=== PATIENT | male | born 1975 | race American Indian/Alaskan Native ===

== ENCOUNTER 2021-04-14 21:03 | Emergency (ER) | payer MEDICAID ==
--- NOTE | 2021-04-15 00:59 | Emergency Department Report ---
ED Psych HPI - General Chief Complaint: Psych Stated Complaint: LEFT HIP PAIN/SUICIDAL/MH EVAL Time Seen by Provider: 04/15/21 00:56 Source: patient Mode of arrival: Ambulatory Limitations: No Limitations - History of Present Illness Initial Comments: Patient is a 45-year-old male who presents emergency room with complaints of suicidal ideations. Patient states he will be going off for 4 days. Patient states his symptoms are worsening. Patient complains of depression. Patient complains of audio and visual hallucinations. Patient states he is off his psychiatry medications. Patient denies alcohol or drug use. Patient states he smokes. Patient denies homicidal ideations. Patient denies recent travel. Patient denies recent international travel. Patient denies exposure to the novel coronavirus. Patient denies sick contacts. Patient denies fever and chills. Patient denies cough. Patient denies diarrhea. Patient denies coming in contact with anybody with symptoms of the novel coronavirus. MD Complaint: suicidal ideation, feels depressed -: Sudden Associated Psychiatric Symptoms: depression, suicidal ideation, racing thoughts, auditory hallucinations, visual hallucinations History of same: Yes Quality: constant Improves With: none Worsens With: none Context: not taking psychiatric, significant life stressor Associated Symptoms: denies: confusion, headache, shortness of breath, nausea, vomiting, syncope, insomnia If Self Harm: admits thoughts of, has plan - Related Data Home Medications Medication Instructions Recorded Confirmed Last Taken Nicotine [Habitrol] 21 mg TD DAILY 04/15/21 04/15/21 04/15/21 11:00 Sertraline [Zoloft] 25 mg PO QDAY 04/15/21 04/15/21 Unknown risperiDONE [RisperDAL] 0.5 mg PO BID 04/15/21 04/15/21 04/15/21 16:00 OLANZapine [Zyprexa] 15 mg PO HS 04/16/21 04/16/21 Unknown amLODIPine 5 mg PO DAILY 04/16/21 04/16/21 Unknown Previous Rx's Medication Instructions Recorded Last Taken Type Gabapentin 300 mg PO Q8HR 30 Days #60 capsule 04/20/21 Unknown Rx Ibuprofen [Motrin 800 MG tab] 800 mg PO Q8H PRN tablet 04/20/21 Unknown Rx OLANzapine [ZyPREXA] 15 mg PO QHS 30 Days #30 tablet 04/20/21 Unknown Rx Sertraline [Zoloft] 100 mg PO QDAY 30 Days #30 tablet 04/20/21 Unknown Rx amLODIPine 5 mg PO DAILY tablet 04/20/21 Unknown Rx hydrOXYzine PAMOATE [Vistaril] 25 mg PO Q6H PRN 30 Days #60 04/20/21 Unknown Rx capsule Allergies Allergy/AdvReac Type Severity Reaction Status Date / Time No Known Allergies Allergy Verified 04/15/21 20:33 ED Review of Systems ROS: Stated complaint: LEFT HIP PAIN/SUICIDAL/MH EVAL Other details as noted in HPI Constitutional: denies: chills, fever Eyes: denies: eye pain, eye discharge, vision change ENT: denies: ear pain, throat pain Respiratory: denies: cough, shortness of breath, wheezing Cardiovascular: denies: chest pain, palpitations Endocrine: no symptoms reported Gastrointestinal: denies: abdominal pain, nausea, diarrhea Genitourinary: denies: urgency, dysuria Musculoskeletal: denies: back pain, joint swelling, arthralgia Skin: denies: rash, lesions Neurological: denies: headache, weakness, paresthesias Psychiatric: as per HPI, depression, auditory hallucinations, visual hallucinations, suicidal thoughts. denies: anxiety Hematological/Lymphatic: denies: easy bleeding, easy bruising ED Past Medical Hx - Past Medical History Previous Medical History?: Yes Hx Psychiatric Treatment: Yes - Surgical History Past Surgical History?: No - Family History Family history: no significant - Social History Smoking Status: Current Every Day Smoker Substance Use Type: None - Medications Home Medications: Home Medications Medication Instructions Recorded Confirmed Last Taken Type Nicotine [Habitrol] 21 mg TD DAILY 04/15/21 04/15/21 04/15/21 11:00 History Sertraline [Zoloft] 25 mg PO QDAY 04/15/21 04/15/21 Unknown History risperiDONE [RisperDAL] 0.5 mg PO BID 04/15/21 04/15/21 04/15/21 16:00 History OLANZapine [Zyprexa] 15 mg PO HS 04/16/21 04/16/21 Unknown History amLODIPine 5 mg PO DAILY 04/16/21 04/16/21 Unknown History Gabapentin 300 mg PO Q8HR 30 Days #60 capsule 04/20/21 Unknown Rx Ibuprofen [Motrin 800 MG tab] 800 mg PO Q8H PRN tablet 04/20/21 Unknown Rx OLANzapine [ZyPREXA] 15 mg PO QHS 30 Days #30 tablet 04/20/21 Unknown Rx Sertraline [Zoloft] 100 mg PO QDAY 30 Days #30 tablet 04/20/21 Unknown Rx amLODIPine 5 mg PO DAILY tablet 04/20/21 Unknown Rx hydrOXYzine PAMOATE [Vistaril] 25 mg PO Q6H PRN 30 Days #60 04/20/21 Unknown Rx capsule ED Physical Exam - General Limitations: No Limitations General appearance: alert, in no apparent distress - Head Head exam: Present: atraumatic, normocephalic - Eye Eye exam: Present: normal appearance - ENT ENT exam: Present: mucous membranes moist - Neck Neck exam: Present: normal inspection - Respiratory Respiratory exam: Present: normal lung sounds bilaterally. Absent: respiratory distress - Cardiovascular Cardiovascular Exam: Present: regular rate, normal rhythm. Absent: systolic mur mur, diastolic murmur, rubs, gallop - GI/Abdominal GI/Abdominal exam: Present: soft, normal bowel sounds - Rectal Rectal exam: Present: deferred - Extremities Exam Extremities exam: Present: normal inspection - Back Exam Back exam: Present: normal inspection - Neurological Exam Neurological exam: Present: alert, oriented X3 - Psychiatric Psychiatric exam: Present: depressed, flat affect, suicidal ideation - Skin Skin exam: Present: warm, dry, intact, normal color. Absent: rash ED Course Vital Signs 04/15/21 04/15/21 04/15/21 00:17 08:08 08:47 Temperature 98.7 F 97.6 F Pulse Rate 80 82 Respiratory 20 20 Rate Blood Pressure 151/103 Blood Pressure 110/80 [Left] O2 Sat by Pulse 97 98 98 Oximetry 04/15/21 19:33 Temperature 98.1 F Pulse Rate 95 H Respiratory 18 Rate Blood Pressure Blood Pressure 119/75 [Left] O2 Sat by Pulse 100 Oximetry - Reevaluation(s) Reevaluation #1: Patient placed on a ER hold. 04/15/21 00:57 Reevaluation #2: Patient is medically cleared. Patient remained in the ER as an ER hold. Patient's final disposition will come from our psychiatry team. 04/15/21 05:45 ED Medical Decision Making - Lab Data Result diagrams: 04/15/21 01:06 04/15/21 01:06 - Medical Decision Making Patient is a 45-year-old male who presents emergency room for suicidal ideation, depression and hallucinations. Patient is noncompliant with the psychiatry medications. Patient having suicidal ideation with a plan. Patient placed on a ER hold after initial evaluation. Patient had labs done. Patient's labs are essentially unremarkable. Patient is medically cleared. Patient's final disposition will come from our psychiatry team. Patient remained in the ER as an ER hold until the patient is cleared by our psychiatry team. - Differential Diagnosis Suicidal ideation, depression, hallucinations, noncompliance with medicatio Critical care attestation.: If time is entered above; I have spent that time in minutes in the direct care of this critically ill patient, excluding procedure time. ED Disposition Clinical Impression: Suicidal ideations, Hallucinations, Noncompliance Disposition: 30 STILL A PATIENT Is pt being admited?: No Does the pt Need Aspirin: No Condition: Stable Referrals: PRIMARY CARE, [Primary Care Provider] - 3-5 Days Time of Disposition: 05:47
[2021-04-15 01:42] LABS: Basophils % (Auto) 0.6 % (0.0-1.8); Eosinophils # (Auto) 0.1 K/mm3 (0.0-0.4); Eosinophils % (Auto) 1.9 % (0.0-4.3); Hematocrit 45.9 % (35.5-45.6); Hemoglobin 15.6 gm/dl (11.8-15.2); Lymphocytes # (Auto) 1.9 K/mm3 (1.2-5.4); Lymphocytes % (Auto) 26.1 % (13.4-35.0); Mean Corpuscular HGB Conc 34 % (32-34); Mean Corpuscular Volume 89 fl (84-94); Monocytes # (Auto) 0.7 K/mm3 (0.0-0.8); Monocytes % (Auto) 9.6 % (0.0-7.3); Platelet Count 244 K/mm3 (140-440); Red Blood Count 5.19 M/mm3 (3.65-5.03); Red Cell Distribution Width 14.7 % (13.2-15.2)
[2021-04-15 01:46] LABS: Alanine Aminotransferase 28 units/L (7-56); Albumin 4.5 g/dL (3.9-5); BUN/Creatinine Ratio 11; Blood Urea Nitrogen 9 mg/dL (9-20); Calcium 9.6 mg/dL (8.4-10.2); Hemolysis Index 6
[2021-04-15 05:17] LABS: Amphetamine Screen,Urine PRESUMPTIVE NEGATIVE; Benzodiazepines Screen,Urine PRESUMPTIVE NEGATIVE; Cannabinoid Screen,Urine PRESUMPTIVE NEGATIVE; Cocaine Screen,Urine PRESUMPTIVE NEGATIVE; Methadone Screen,Urine PRESUMPTIVE NEGATIVE; Opiate Screen,Urine PRESUMPTIVE NEGATIVE
[2021-04-15 05:24] LABS: Bilirubin,Urine NEG (Negative); Blood,Urine NEG (Negative); Color,Urine Amber (Yellow); Mucus,Urine 2+ /HPF
--- NOTE | 2021-04-15 09:13 | Consultation ---
History of Present Illness - Reason for Consult Consult date: 04/15/21 Reason for consult: Suicidal thoughts - History of Present Psychiatric Illness Per ER Note: Patient is a 45-year-old male who presents emergency room with complaints of suicidal ideations. Patient states he will be going off for 4 days. Patient states his symptoms are worsening. Patient complains of depression. Patient complains of audio and visual hallucinations. Patient states he is off his psychiatry medications. Patient denies alcohol or drug use. Patient states he smokes. Patient denies homicidal ideation. David Dixon is a 45y/o male who was seen today. He says he is "not good." The patient says he's been suicidal for "about 5 days." He says he has a plan to run in front of traffic. The patient also states he "sees black and white dots." He says he hears voices telling him to "kill himself." The patient says he has a history of schizophrenia and bipolar. He says he takes risperidone and zoloft. Th epatient stats he has been compliant with his meds. PAST PSYCHIATRIC HISTORY Diagnoses: Schizophrenia, bipolar Suicide attempts or Self-harm behavior: None reported Prior psychiatric hospitalizations: yes Substance Abuse history: Nicotine Previous psychiatric medications tried: risperidone and zoloft Outpatient treatment: Yes PAST MEDICAL HISTORY: None reported Family Psychiatric History: Mother " unknown" SOCIAL HISTORY Marital Status: Single Living Arrangements: residential Employment Status: Unemployed Access to guns/weapons: None reported Education: History of Abuse: None reported Legal History: None reported REVIEW OF SYSTEMS Constitutional: Negative for weight loss ENT: Negative for stridor Respiratory: Negative for cough or hemoptysis All other systems reviewed and are negative MENTAL STATUS EXAMINATION General Appearance and Behavior: Age appropriate, good hygiene, wearing appropriate clothes, poor eye contact, calm and cooperative Cooperation: cooperative Mood: Depressed Affect and affective range: congruent with mood Thought Process: Goal directed Thought Content: Suicidal, hallucinations Speech: normal tone and pace Suicidal Ideation: Yes Homicidal Ideation: Denies Hallucinations: Auditory Delusions: Denies Impulse Control: Impaired Insight and Judgment: Limited insight and poor judgment, Memory: Normal Attention: Normal Orientation: Alert, oriented Assessment Schizophrenia Treatment 1013 Zoloft 25mg po daily Risperidone 0.5mg po BID Nicotine patch 21mg daily Sitter: Per primary Medical: per primary Disposition: Recommend acute psychiatric inpatient treatment Case staffed with Dr. Renteria Mental Status Exam - Vital signs Last Vital Signs Temp 97.6 F 04/15/21 08:08 Pulse 82 04/15/21 08:08 Resp 20 04/15/21 08:08 BP 110/80 04/15/21 08:08 Pulse Ox 98 04/15/21 08:47 Results Result Diagrams: 04/15/21 01:06 04/15/21 01:06 Abnormal lab results 04/15/21 04/15/21 04/15/21 Range/Units 01:06 01:06 01:06 RBC 5.19 H (3.65-5.03) M/mm3 Hgb 15.6 H (11.8-15.2) gm/dl Hct 45.9 H (35.5-45.6) % [place] % (Auto) 9.6 H (0.0-7.3) % Glucose 109 H (75-100) mg/dL Ur Specific [place] (1.003-1.030) Salicylates < 0.3 L (2.8-20.0) mg/dL Acetaminophen (10.0-30.0) ug/mL 04/15/21 04/15/21 Range/Units 01:06 04:05 RBC (3.65-5.03) M/mm3 Hgb (11.8-15.2) gm/dl Hct (35.5-45.6) % [place] % (Auto) (0.0-7.3) % Glucose (75-100) mg/dL Ur Specific [place] 1.033 H (1.003-1.030) Salicylates (2.8-20.0) mg/dL Acetaminophen 5.0 L (10.0-30.0) ug/mL All other labs normal.
--- NOTE | 2021-04-15 10:34 | Event Note ---
Date: 04/15/21 S: No events reported overnight O: Vital Signs - 24 hr 04/15/21 04/15/21 04/15/21 00:17 08:08 08:47 Temperature 98.7 F 97.6 F Pulse Rate 80 82 Respiratory 20 20 Rate Blood Pressure 151/103 Blood Pressure 110/80 [Left] O2 Sat by Pulse 97 98 98 Oximetry A: Schizophrenia/1013 P: Awaiting inpatient psych placement
[2021-04-15] MEDS ORDERED: NICOTINE 21 MG/24 HR PATCH TD SCH (15:00)
[2021-04-15] MEDS ORDERED: SERTRALINE 25 MG TAB PO SCH (15:00)
[2021-04-15] MEDS ORDERED: risperiDONE 0.25 MG TAB PO SCH (15:00)
[2021-04-15] MEDS ORDERED: IBUPROFEN 800 MG TAB PO ONE (16:43)
[2021-04-15 19:34] VITALS: BP 119/75
== END 2021-04-15 19:51 | disposition still patient (30) ==
LOC: ED 21:03 → EEVIPCON 21:03 → ED 04-15 19:51
DX: R45.851 Suicidal ideations (principal); R44.3 Hallucinations, unspecified; Z91.19 Patient's noncompliance with other medical treatment and regimen; Z20.822 Contact with and (suspected) exposure to COVID-19; F17.200 Nicotine dependence, unspecified, uncomplicated
CPT/HCPCS: 36415; 80053; 80307; 81001; 85025; 99284; U0003; 80320; G0480

== ENCOUNTER 2021-04-15 14:53 | Inpatient (IN) | payer MEDICAID ==
[2021-04-16] MEDS: traZODone 50 MG TAB PO SCH ×2 (02:07→21:29)
--- NOTE | 2021-04-16 09:06 | History and Physical Report ---
GP History & Physical - History of Present Illness Date of admission: 04/15/21 Date of Examination: 04/16/21 Reason for Admission: Danger to self Chief Complaint: suicidal ideation/ AVH History of Present Illness: David Guzmán is a a 45 year old male with a history of Depression, Anxiety, Bipolar, Schizophrenia, suicidal attempts x 20 and multiple psychiatric inpatient admissions who was admitted on 1012 for suicidal ideation with a plan to run into traffic and also auditory and visual hallucinations. In my interview with the patient, He reports moving from [place], [place] about a month and half ago and he is currently staying in a transitional home. The patient states his medications ran out and has not seen a psychiatrist since his move; last took medications about 6 days ago. The patient reports having suicidal thoughts with no plan and has auditory and visual hallucinations " voices telling me to kill myself and I see dots of white and black." The patient reports trying Risperidone, Gapapentin and Klonopin, and states current medications as Zoloft 25mg daily, Buspar (unknown dosage) and Vistaril (unknown dosage). The patient states he has family in [place] and they are supportive. PAST PSYCHIATRIC HISTORY: Diagnoses: Depression, Anxiety, Bipolar, Schizophrenia Suicide attempts or Self-harm behavior: X20 Prior psychiatric hospitalizations: Multiple Substance Abuse history: Denies Previous psychiatric medications tried: Multiple( unable to state) Outpatient treatment: yes PAST MEDICAL HISTORY: None reported or document Family Psychiatric History: None reported or documented SOCIAL HISTORY Marital Status: Single Living Arrangements: Transitional home Employment Status: Unemployed Access to guns/weapons: denies Education: 12th grade History of Abuse: denies Legal History: denies REVIEW OF SYSTEMS Constitutional: Negative for weight loss ENT: Negative for stridor Respiratory: Negative for cough or hemoptysis All other systems reviewed and are negative MENTAL STATUS EXAMINATION General Appearance and Behavior: Age appropriate, good hygiene, wearing appropriate clothes, calm and cooperative polite with questioning. Cooperation: engaged Psychomotor Behavior: Psychomotor normal Mood: depressed Affect and affective range: congruent with stated mood Thought Process: goal directed Thought Content: Suicidal Speech: Normal volume, Regular rate and rhythm, Suicidal Ideation: Yes Homicidal Ideation: Denies Hallucinations: Auditory and visual Delusions: None elicited Impulse Control: Questionable Insight and Judgment: Limited Memory: Limited Attention: attentive Orientation: a/o Assessment and Plan (1)Schizophrenia Treatment Plan Patient admitted for inpatient psychiatric evaluation, medication adjustment and close monitoring The patient's behavior, mood, sleep and appetite will be closely monitored. Patient enrolled in individual and group therapeutic sessions and encouraged to attend. Patient provided with a safe and structured environment. Patient's physical health needs will be addressed by the Hospitalist. Hospitalist Consulted Labs including CBC, CMP, Lipid profile and Hemoglobin A1C levels ordered for baseline reference Social Assessment will be completed and the Doctor Of Optometry will work with patient and family to ensure a suitable and safe disposition Medication adjustment will be made as clinically indicated Continue home medications Start Vistaril 25mg po every 6 hours as needed for anxiety. The patient agreed to carlos Klonopin and start Vistaril 25 mg po every 6 hours as needed for anxiety Usual Wellness Muslim/Preservation: - Start Trazodone 50 mg po QHS & 50 mg po QHS PRN between 10 PM & 2 AM for insomnia - Start Melatonin 5 mg po QHS to promote circadian rhythm The patient agreed on the treatment plan, understood the risk, benefit, alternative treatment, potential consequence of no treatment, and gave informed consent. Estimated days: 6 Post hospital care: primary care provider, psychiatric provider Case staffed with Dr. Renteria Medications and Allergies Medications and Allergies Allergies Allergy/AdvReac Type Severity Reaction Status Date / Time No Known Allergies Allergy Unverified 04/14/21 15:09 Legal Status: Voluntary Reaction to Hospitalization: Accepting Medications and Allergies Allergies Allergy/AdvReac Type Severity Reaction Status Date / Time No Known Allergies Allergy Verified 04/15/21 20:33 Home Medications Medication Instructions Recorded Confirmed Last Taken Type Nicotine [Habitrol] 21 mg TD DAILY 04/15/21 04/15/21 04/15/21 11:00 History Sertraline [Zoloft] 25 mg PO QDAY 04/15/21 04/15/21 Unknown History risperiDONE [RisperDAL] 0.5 mg PO BID 04/15/21 04/15/21 04/15/21 16:00 History OLANZapine [Zyprexa] 15 mg PO HS 04/16/21 04/16/21 Unknown History amLODIPine [Norvasc] 5 mg PO DAILY 04/16/21 04/16/21 Unknown History Active Meds: Active Medications Trazodone HCl (Trazodone 50 Mg Tab) 50 mg PO QHS KAJAL Last Admin: 04/16/21 02:07 Dose: 50 mg Documented by: Results - Results Labs/Vitals: Last Vital Signs Temp 98.5 F 04/15/21 21:00 Pulse 92 H 04/15/21 21:00 Resp 16 04/15/21 21:00 BP 130/83 04/15/21 21:00 Pulse Ox 97 04/15/21 21:00 Physical Examination - Constitutional Vitals: Vital Signs Temp Pulse Resp BP Pulse Ox 98.5 F 92 H 16 130/83 97 04/15/21 21:00 04/15/21 21:00 04/15/21 21:00 04/15/21 21:00 04/15/21 21:00 Temperature -Last 24 Hours Temperature 98.5 F Mental Status Exam - Vital signs Last Vital Signs Temp 98.5 F 04/15/21 21:00 Pulse 92 H 04/15/21 21:00 Resp 16 04/15/21 21:00 BP 130/83 04/15/21 21:00 Pulse Ox 97 04/15/21 21:00 Physician Certification - Certification Statement Physician Certification Statement: This is an acknowledgement statement that DAVID GUZMÁN is a 45 year old M who requires inpatient psychiatric admission for treatment which could reasonably be expected to improve the patient's condition for Estimated period of time patient will need to remain in the hospital: [ ] Plan for post-hospital care: [ ]
[2021-04-16] MEDS: SERTRALINE 25 MG TAB PO SCH (10:03)
[2021-04-16 10:24] LABS: Basophils % (Auto) 0.6 % (0.0-1.8); Eosinophils # (Auto) 0.1 K/mm3 (0.0-0.4); Eosinophils % (Auto) 1.5 % (0.0-4.3); Hematocrit 43.5 % (35.5-45.6); Hemoglobin 14.9 gm/dl (11.8-15.2); Lymphocytes # (Auto) 1.6 K/mm3 (1.2-5.4); Lymphocytes % (Auto) 25.1 % (13.4-35.0); Mean Corpuscular HGB Conc 34 % (32-34); Mean Corpuscular Volume 88 fl (84-94); Monocytes # (Auto) 0.4 K/mm3 (0.0-0.8); Monocytes % (Auto) 6.8 % (0.0-7.3); Red Blood Count 4.97 M/mm3 (3.65-5.03); Red Cell Distribution Width 14.5 % (13.2-15.2)
[2021-04-16] MEDS: hydrOXYzine PAMOATE 25 MG CAP PO PRN (10:25)
[2021-04-16 10:50] LABS: Alanine Aminotransferase 19 units/L (7-56); BUN/Creatinine Ratio 18; Blood Urea Nitrogen 14 mg/dL (9-20); Calcium 9.6 mg/dL (8.4-10.2); HDL Cholesterol 48 mg/dL (40-59); Hemolysis Index 20; LDL Cholesterol,Direct 118 mg/dL (50-130); Platelet Count 241 K/mm3 (140-440)
--- NOTE | 2021-04-16 14:13 | Consultation ---
History of Present Illness - History of Present Illness Patient is a 45-year-old male who presents emergency room with complaints of suicidal ideations. Patient states he will be going off for 4 days. Patient states his symptoms are worsening. Patient complains of depression. Patient complains of audio and visual hallucinations. Patient states he is off his psychiatry medications. Patient denies alcohol or drug use. Patient states he smokes. Patient denies homicidal ideations. Patient denies recent travel. Patient denies recent international travel. Patient denies exposure to the novel coronavirus. Patient denies sick contacts. Patient denies fever and chills. Patient denies cough. Patient denies diarrhea. Patient denies coming in contact with anybody with symptoms of the novel coronavirus. MD Complaint: suicidal ideation, feels depressed -: Sudden Associated Psychiatric Symptoms: depression, suicidal ideation, racing thoughts, auditory hallucinations, visual hallucinations History of same: Yes Quality: constant Improves With: none Worsens With: none Context: not taking psychiatric, significant life stressor Associated Symptoms: denies: confusion, headache, shortness of breath, nausea, vomiting, syncope, insomnia If Self Harm: admits thoughts of, has plan ED Review of Systems ROS: Stated complaint: LEFT HIP PAIN/SUICIDAL/MH EVAL Other details as noted in HPI Constitutional: denies: chills, fever Eyes: denies: eye pain, eye discharge, vision change ENT: denies: ear pain, throat pain Respiratory: denies: cough, shortness of breath, wheezing Cardiovascular: denies: chest pain, palpitations Endocrine: no symptoms reported Gastrointestinal: denies: abdominal pain, nausea, diarrhea Genitourinary: denies: urgency, dysuria Musculoskeletal: denies: back pain, joint swelling, arthralgia Skin: denies: rash, lesions Neurological: denies: headache, weakness, paresthesias Psychiatric: as per HPI, depression, auditory hallucinations, visual hallucinations, suicidal thoughts. denies: anxiety Hematological/Lymphatic: denies: easy bleeding, easy bruising ED Past Medical Hx - Past Medical History Previous Medical History?: Yes Hx Psychiatric Treatment: Yes - Surgical History Past Surgical History?: No - Family History Family history: no significant - Social History Smoking Status: Current Every Day Smoker Substance Use Type: None ED Physical Exam Medications and Allergies Allergies Allergy/AdvReac Type Severity Reaction Status Date / Time No Known Allergies Allergy Verified 04/15/21 20:33 Home Medications Medication Instructions Recorded Confirmed Last Taken Type Nicotine [Habitrol] 21 mg TD DAILY 04/15/21 04/15/21 04/15/21 11:00 History Sertraline [Zoloft] 25 mg PO QDAY 04/15/21 04/15/21 Unknown History risperiDONE [RisperDAL] 0.5 mg PO BID 04/15/21 04/15/21 04/15/21 16:00 History OLANZapine [Zyprexa] 15 mg PO HS 04/16/21 04/16/21 Unknown History amLODIPine [Norvasc] 5 mg PO DAILY 04/16/21 04/16/21 Unknown History Active Meds: Active Medications Hydroxyzine Pamoate (Hydroxyzine Pamoate 25 Mg Cap) 25 mg PO Q6H PRN PRN Reason: Anxiety Last Admin: 04/16/21 10:25 Dose: 25 mg Documented by: Olanzapine (Olanzapine 7.5 Mg Tab) 15 mg PO QHS [facility] Sertraline HCl (Sertraline 25 Mg Tab) 25 mg PO QDAY [facility] Last Admin: 04/16/21 10:03 Dose: 25 mg Documented by: Trazodone HCl (Trazodone 50 Mg Tab) 50 mg PO QHS [facility] Last Admin: 04/16/21 02:07 Dose: 50 mg Documented by: Exam - Constitutional Vitals: Temp Pulse Resp BP Pulse Ox 98.3 F 89 16 97/64 97 04/16/21 08:00 04/16/21 08:00 04/16/21 08:00 04/16/21 08:00 04/15/21 21:00 Results - Labs CBC & Chem 7: 04/16/21 10:06 04/16/21 10:06
[2021-04-16] MEDS: IBUPROFEN 800 MG TAB PO PRN (19:13)
[2021-04-16] MEDS: GABAPENTIN 300 MG CAP PO SCH (21:28)
[2021-04-16] MEDS ORDERED: NON-FORMULARY EACH (Olanzapine [Zyprexa] 15 MG Tablet) PO SCH (22:00)
[2021-04-17] MEDS: GABAPENTIN 300 MG CAP PO SCH ×3 (05:32→21:46)
--- NOTE | 2021-04-17 08:48 | Progress Note ---
Subjective Date of service: 04/17/21 Subjective Comment: 04/17/2021: The patient was seen eating breakfast, he reports feeling better. He reports sleep and appetite as good. The patient denies any current suicidal/homicidal ideation and denies hallucinations. per nurse, the patient had a quiet night. No changes made today. REVIEW OF SYSTEMS Constitutional: Negative for weight loss ENT: Negative for stridor Respiratory: Negative for cough or hemoptysis All other systems reviewed and are negative MENTAL STATUS EXAMINATION General Appearance and Behavior: Age appropriate, good hygiene, wearing appropriate clothes, calm and cooperative polite with questioning. Cooperation: engaged Psychomotor Behavior: Psychomotor normal Mood: depressed Affect and affective range: congruent with stated mood Thought Process: goal directed Thought Content: Not Suicidal Speech: Normal volume, Regular rate and rhythm, Suicidal Ideation: Denies Homicidal Ideation: Denies Hallucinations: Auditory and visual Delusions: None elicited Impulse Control: Questionable Insight and Judgment: Limited Memory: Limited Attention: attentive Orientation: a/o Assessment and Plan (1)Schizophrenia Treatment Plan Patient admitted for inpatient psychiatric evaluation, medication adjustment and close monitoring The patient's behavior, mood, sleep and appetite will be closely monitored. Patient enrolled in individual and group therapeutic sessions and encouraged to attend. Patient provided with a safe and structured environment. Patient's physical health needs will be addressed by the Hospitalist. Hospitalist Consulted Labs including CBC, CMP, Lipid profile and Hemoglobin A1C levels ordered for baseline reference Social Assessment will be completed and the Coating Manager will work with patient and family to ensure a suitable and safe disposition Medication adjustment will be made as clinically indicated Continue home medications No changes made today Start Vistaril 25mg po every 6 hours as needed for anxiety. The patient agreed to carlos Klonopin and start Vistaril 25 mg po every 6 hours as needed for anxiety Usual Wellness Yazidi/Preservation: - Start Trazodone 50 mg po QHS & 50 mg po QHS PRN between 10 PM & 2 AM for insomnia - Start Melatonin 5 mg po QHS to promote circadian rhythm The patient agreed on the treatment plan, understood the risk, benefit, alternative treatment, potential consequence of no treatment, and gave informed consent. Estimated days: 5 Post hospital care: primary care provider, psychiatric provider Case staffed with Dr. Renteria Medications and Allergies Medications and Allergies Allergies Allergy/AdvReac Type Severity Reaction Status Date / Time No Known Allergies Allergy Verified 04/15/21 20:33 Home Medications Medication Instructions Recorded Confirmed Last Taken Type Nicotine [Habitrol] 21 mg TD DAILY 04/15/21 04/15/21 04/15/21 11:00 History Sertraline [Zoloft] 25 mg PO QDAY 04/15/21 04/15/21 Unknown History risperiDONE [RisperDAL] 0.5 mg PO BID 04/15/21 04/15/21 04/15/21 16:00 History OLANZapine [Zyprexa] 15 mg PO HS 04/16/21 04/16/21 Unknown History amLODIPine [Norvasc] 5 mg PO DAILY 04/16/21 04/16/21 Unknown History Active Meds: Active Medications Amlodipine Besylate (Amlodipine 5 Mg Tab) 5 mg PO DAILY [facility] Gabapentin (Gabapentin 300 Mg Cap) 300 mg PO Q8HR [facility] Last Admin: 04/17/21 05:32 Dose: 300 mg Documented by: Hydroxyzine Pamoate (Hydroxyzine Pamoate 25 Mg Cap) 25 mg PO Q6H PRN PRN Reason: Anxiety Last Admin: 04/16/21 10:25 Dose: 25 mg Documented by: Ibuprofen (Ibuprofen 800 Mg Tab) 800 mg PO Q8H PRN PRN Reason: Pain, Mild (1-3) Last Admin: 04/16/21 19:13 Dose: 800 mg Documented by: Nicotine (Nicotine 21 Mg/24 Hr Patch) 21 mg TD DAILY [facility] Olanzapine (Olanzapine 5 Mg Tab) 15 mg PO QHS [facility] Last Admin: 04/16/21 21:28 Dose: 15 mg Documented by: Sertraline HCl (Sertraline 25 Mg Tab) 25 mg PO QDAY [facility] Last Admin: 04/16/21 10:03 Dose: 25 mg Documented by: Trazodone HCl (Trazodone 50 Mg Tab) 50 mg PO QHS [facility] Last Admin: 04/16/21 21:29 Dose: 50 mg Documented by: Results - Results Labs/Vitals: Laboratory Last Values WBC 6.3 K/mm3 (4.5-11.0) 04/16/21 10:06 RBC 4.97 M/mm3 (3.65-5.03) 04/16/21 10:06 Hgb 14.9 gm/dl (11.8-15.2) 04/16/21 10:06 Hct 43.5 % (35.5-45.6) 04/16/21 10:06 MCV 88 fl (84-94) 04/16/21 10:06 MCH 30 pg (28-32) 04/16/21 10:06 MCHC 34 % (32-34) 04/16/21 10:06 RDW 14.5 % (13.2-15.2) 04/16/21 10:06 Plt Count 241 K/mm3 (140-440) 04/16/21 10:06 Lymph % (Auto) 25.1 % (13.4-35.0) 04/16/21 10:06 [place] % (Auto) 6.8 % (0.0-7.3) 04/16/21 10:06 Eos % (Auto) 1.5 % (0.0-4.3) 04/16/21 10:06 Baso % (Auto) 0.6 % (0.0-1.8) 04/16/21 10:06 Lymph # (Auto) 1.6 K/mm3 (1.2-5.4) 04/16/21 10:06 [place] # (Auto) 0.4 K/mm3 (0.0-0.8) 04/16/21 10:06 Eos # (Auto) 0.1 K/mm3 (0.0-0.4) 04/16/21 10:06 Baso # (Auto) 0.0 K/mm3 (0.0-0.1) 04/16/21 10:06 Seg Neutrophils % 66.0 % (40.0-70.0) 04/16/21 10:06 Seg Neutrophils # 4.1 K/mm3 (1.8-7.7) 04/16/21 10:06 Sodium 139 mmol/L (137-145) 04/16/21 10:06 Potassium 4.0 mmol/L (3.6-5.0) 04/16/21 10:06 Chloride 106.5 mmol/L (98-107) 04/16/21 10:06 Carbon Dioxide 25 mmol/L (22-30) 04/16/21 10:06 Anion Gap 12 mmol/L 04/16/21 10:06 BUN 14 mg/dL (9-20) 04/16/21 10:06 Creatinine 0.8 mg/dL (0.8-1.3) 04/16/21 10:06 Estimated GFR > 60 ml/min 04/16/21 10:06 BUN/Creatinine Ratio 18 % 04/16/21 10:06 Glucose 90 mg/dL (75-100) 04/16/21 10:06 Hemoglobin A1c 5.8 % (4-6) 04/16/21 10:06 Calcium 9.6 mg/dL (8.4-10.2) 04/16/21 10:06 Total Bilirubin 0.20 mg/dL (0.1-1.2) 04/16/21 10:06 AST 17 units/L (5-40) 04/16/21 10:06 ALT 19 units/L (7-56) 04/16/21 10:06 Alkaline Phosphatase 89 units/L (35-129) 04/16/21 10:06 Total Protein 6.8 g/dL (6.3-8.2) 04/16/21 10:06 Albumin 4.0 g/dL (3.9-5) 04/16/21 10:06 Albumin/Globulin Ratio 1.4 % 04/16/21 10:06 Triglycerides 117 mg/dL (2-149) 04/16/21 10:06 Cholesterol 178 mg/dL (50-199) 04/16/21 10:06 LDL Cholesterol Direct 118 mg/dL (50-130) 04/16/21 10:06 HDL Cholesterol 48 mg/dL (40-59) 04/16/21 10:06 Cholesterol/HDL Ratio 3.70 % 04/16/21 10:06 TSH 0.544 mlU/mL (0.270-4.200) 04/16/21 10:06 Last Vital Signs Temp 97.8 F 04/17/21 07:57 Pulse 70 04/17/21 07:57 Resp 16 04/17/21 07:57 BP 104/71 04/17/21 07:57 Pulse Ox 99 04/17/21 07:57
[2021-04-17] MEDS: NICOTINE 21 MG/24 HR PATCH TD SCH (09:26)
[2021-04-17] MEDS: amLODIPine 5 MG TAB PO SCH (09:26)
[2021-04-17] MEDS: SERTRALINE 25 MG TAB PO SCH (09:26)
[2021-04-17] MEDS: IBUPROFEN 800 MG TAB PO PRN ×2 (09:30→21:46)
[2021-04-17] MEDS: hydrOXYzine PAMOATE 25 MG CAP PO PRN ×2 (12:30→21:45)
[2021-04-17] MEDS: traZODone 50 MG TAB PO SCH (21:46)
[2021-04-18] MEDS: GABAPENTIN 300 MG CAP PO SCH ×3 (06:33→21:43)
--- NOTE | 2021-04-18 08:41 | Progress Note ---
Subjective Date of service: 04/18/21 Subjective Comment: 04/17/2021: The patient was seen eating breakfast, he reports feeling better. He reports sleep and appetite as good. The patient denies any current suicidal/homicidal ideation and denies hallucinations. per nurse, the patient had a quiet night. No changes made today. 04/18/2021: The patient continues to complain of being depressed. He reports sleep as fair and appetite as good. The patient denies any current suicidal/homicidal ideation and denies hallucinations. per nurse, the patient had a quiet night. Change Sertraline to 50mg po daily. REVIEW OF SYSTEMS Constitutional: Negative for weight loss ENT: Negative for stridor Respiratory: Negative for cough or hemoptysis All other systems reviewed and are negative MENTAL STATUS EXAMINATION General Appearance and Behavior: Age appropriate, good hygiene, wearing appropriate clothes, calm and cooperative polite with questioning. Cooperation: engaged Psychomotor Behavior: Psychomotor normal Mood: depressed Affect and affective range: congruent with stated mood Thought Process: goal directed Thought Content: Not Suicidal Speech: Normal volume, Regular rate and rhythm, Suicidal Ideation: Denies Homicidal Ideation: Denies Hallucinations: Auditory and visual Delusions: None elicited Impulse Control: Questionable Insight and Judgment: Limited Memory: Limited Attention: attentive Orientation: a/o Assessment and Plan (1)Schizophrenia Treatment Plan Patient admitted for inpatient psychiatric evaluation, medication adjustment and close monitoring The patient's behavior, mood, sleep and appetite will be closely monitored. Patient enrolled in individual and group therapeutic sessions and encouraged to attend. Patient provided with a safe and structured environment. Patient's physical health needs will be addressed by the Hospitalist. Hospitalist Consulted Labs including CBC, CMP, Lipid profile and Hemoglobin A1C levels ordered for baseline reference Social Assessment will be completed and the Joy Loader will work with patient and family to ensure a suitable and safe disposition Medication adjustment will be made as clinically indicated Continue home medications Change Sertraline to 50mg po daily. Start Vistaril 25mg po every 6 hours as needed for anxiety. The patient agreed to carlos Klonopin and start Vistaril 25 mg po every 6 hours as needed for anxiety Usual Wellness Sikh/Preservation: - Start Trazodone 50 mg po QHS & 50 mg po QHS PRN between 10 PM & 2 AM for insomnia - Start Melatonin 5 mg po QHS to promote circadian rhythm The patient agreed on the treatment plan, understood the risk, benefit, alternative treatment, potential consequence of no treatment, and gave informed consent. Estimated days: 4 Post hospital care: primary care provider, psychiatric provider Case staffed with Dr. Renteria Medications and Allergies Medications and Allergies Allergies Allergy/AdvReac Type Severity Reaction Status Date / Time No Known Allergies Allergy Verified 04/15/21 20:33 Home Medications Medication Instructions Recorded Confirmed Last Taken Type Nicotine [Habitrol] 21 mg TD DAILY 04/15/21 04/15/21 04/15/21 11:00 History Sertraline [Zoloft] 25 mg PO QDAY 04/15/21 04/15/21 Unknown History risperiDONE [RisperDAL] 0.5 mg PO BID 04/15/21 04/15/21 04/15/21 16:00 History OLANZapine [Zyprexa] 15 mg PO HS 04/16/21 04/16/21 Unknown History amLODIPine [Norvasc] 5 mg PO DAILY 04/16/21 04/16/21 Unknown History Active Meds: Active Medications Amlodipine Besylate (Amlodipine 5 Mg Tab) 5 mg PO DAILY [facility] Last Admin: 04/17/21 09:26 Dose: 5 mg Documented by: Gabapentin (Gabapentin 300 Mg Cap) 300 mg PO Q8HR [facility] Last Admin: 04/18/21 06:33 Dose: 300 mg Documented by: Hydroxyzine Pamoate (Hydroxyzine Pamoate 25 Mg Cap) 25 mg PO Q6H PRN PRN Reason: Anxiety Last Admin: 04/17/21 21:45 Dose: 25 mg Documented by: Ibuprofen (Ibuprofen 800 Mg Tab) 800 mg PO Q8H PRN PRN Reason: Pain, Mild (1-3) Last Admin: 04/17/21 21:46 Dose: 800 mg Documented by: Nicotine (Nicotine 21 Mg/24 Hr Patch) 21 mg TD DAILY [facility] Last Admin: 04/17/21 09:26 Dose: 21 mg Documented by: Olanzapine (Olanzapine 5 Mg Tab) 15 mg PO QHS [facility] Last Admin: 04/17/21 21:45 Dose: 15 mg Documented by: Sertraline HCl (Sertraline 50 Mg Tab) 50 mg PO QDAY [facility] Trazodone HCl (Trazodone 50 Mg Tab) 50 mg PO QHS [facility] Last Admin: 04/17/21 21:46 Dose: 50 mg Documented by: Results - Results Labs/Vitals: Laboratory Last Values WBC 6.3 K/mm3 (4.5-11.0) 04/16/21 10:06 RBC 4.97 M/mm3 (3.65-5.03) 04/16/21 10:06 Hgb 14.9 gm/dl (11.8-15.2) 04/16/21 10:06 Hct 43.5 % (35.5-45.6) 04/16/21 10:06 MCV 88 fl (84-94) 04/16/21 10:06 MCH 30 pg (28-32) 04/16/21 10:06 MCHC 34 % (32-34) 04/16/21 10:06 RDW 14.5 % (13.2-15.2) 04/16/21 10:06 Plt Count 241 K/mm3 (140-440) 04/16/21 10:06 Lymph % (Auto) 25.1 % (13.4-35.0) 04/16/21 10:06 [place] % (Auto) 6.8 % (0.0-7.3) 04/16/21 10:06 Eos % (Auto) 1.5 % (0.0-4.3) 04/16/21 10:06 Baso % (Auto) 0.6 % (0.0-1.8) 04/16/21 10:06 Lymph # (Auto) 1.6 K/mm3 (1.2-5.4) 04/16/21 10:06 [place] # (Auto) 0.4 K/mm3 (0.0-0.8) 04/16/21 10:06 Eos # (Auto) 0.1 K/mm3 (0.0-0.4) 04/16/21 10:06 Baso # (Auto) 0.0 K/mm3 (0.0-0.1) 04/16/21 10:06 Seg Neutrophils % 66.0 % (40.0-70.0) 04/16/21 10:06 Seg Neutrophils # 4.1 K/mm3 (1.8-7.7) 04/16/21 10:06 Sodium 139 mmol/L (137-145) 04/16/21 10:06 Potassium 4.0 mmol/L (3.6-5.0) 04/16/21 10:06 Chloride 106.5 mmol/L (98-107) 04/16/21 10:06 Carbon Dioxide 25 mmol/L (22-30) 04/16/21 10:06 Anion Gap 12 mmol/L 04/16/21 10:06 BUN 14 mg/dL (9-20) 04/16/21 10:06 Creatinine 0.8 mg/dL (0.8-1.3) 04/16/21 10:06 Estimated GFR > 60 ml/min 04/16/21 10:06 BUN/Creatinine Ratio 18 % 04/16/21 10:06 Glucose 90 mg/dL (75-100) 04/16/21 10:06 Hemoglobin A1c 5.8 % (4-6) 04/16/21 10:06 Calcium 9.6 mg/dL (8.4-10.2) 04/16/21 10:06 Total Bilirubin 0.20 mg/dL (0.1-1.2) 04/16/21 10:06 AST 17 units/L (5-40) 04/16/21 10:06 ALT 19 units/L (7-56) 04/16/21 10:06 Alkaline Phosphatase 89 units/L (35-129) 04/16/21 10:06 Total Protein 6.8 g/dL (6.3-8.2) 04/16/21 10:06 Albumin 4.0 g/dL (3.9-5) 04/16/21 10:06 Albumin/Globulin Ratio 1.4 % 04/16/21 10:06 Triglycerides 117 mg/dL (2-149) 04/16/21 10:06 Cholesterol 178 mg/dL (50-199) 04/16/21 10:06 LDL Cholesterol Direct 118 mg/dL (50-130) 04/16/21 10:06 HDL Cholesterol 48 mg/dL (40-59) 04/16/21 10:06 Cholesterol/HDL Ratio 3.70 % 04/16/21 10:06 TSH 0.544 mlU/mL (0.270-4.200) 04/16/21 10:06 Last Vital Signs Temp 98.3 F 04/18/21 07:20 Pulse 63 04/18/21 07:20 Resp 18 04/18/21 07:20 BP 112/71 08/22/21 07:20 Pulse Ox 98 04/18/21 07:20
[2021-04-18] MEDS: NICOTINE 21 MG/24 HR PATCH TD SCH (09:41)
[2021-04-18] MEDS: amLODIPine 5 MG TAB PO SCH (09:42)
[2021-04-18] MEDS: IBUPROFEN 800 MG TAB PO PRN ×2 (09:46→21:41)
[2021-04-18] MEDS ORDERED: SERTRALINE 50 MG TAB PO SCH (10:00)
[2021-04-18] MEDS: hydrOXYzine PAMOATE 25 MG CAP PO PRN ×2 (12:17→21:44)
[2021-04-18] MEDS: traZODone 50 MG TAB PO SCH (21:43)
[2021-04-19] MEDS: GABAPENTIN 300 MG CAP PO SCH ×3 (05:30→21:13)
--- NOTE | 2021-04-19 08:00 | Progress Note ---
Subjective Date of service: 04/19/21 Subjective Comment: 04/17/2021: The patient was seen eating breakfast, he reports feeling better. He reports sleep and appetite as good. The patient denies any current suicidal/homicidal ideation and denies hallucinations. per nurse, the patient had a quiet night. No changes made today. 04/18/2021: The patient continues to complain of being depressed. He reports sleep as fair and appetite as good. The patient denies any current suicidal/homicidal ideation and denies hallucinations. per nurse, the patient had a quiet night. Change Sertraline to 50mg po daily. 04/19/2021: The continues to endorse depression. reports sleep as fair and appetite as good. The patient denies any current suicidal/homicidal ideation and denies hallucinations. per nurse, the patient had a quiet night. Change Sertraline to 100mg po daily. Per nurse, the patient had a quiet night. REVIEW OF SYSTEMS Constitutional: Negative for weight loss ENT: Negative for stridor Respiratory: Negative for cough or hemoptysis All other systems reviewed and are negative MENTAL STATUS EXAMINATION General Appearance and Behavior: Age appropriate, good hygiene, wearing appropriate clothes, calm and cooperative polite with questioning. Cooperation: engaged Psychomotor Behavior: Psychomotor normal Mood: depressed Affect and affective range: congruent with stated mood Thought Process: goal directed Thought Content: Not Suicidal Speech: Normal volume, Regular rate and rhythm, Suicidal Ideation: Denies Homicidal Ideation: Denies Hallucinations: Auditory and visual Delusions: None elicited Impulse Control: Questionable Insight and Judgment: Limited Memory: Limited Attention: attentive Orientation: a/o Assessment and Plan (1)Schizophrenia Treatment Plan Patient admitted for inpatient psychiatric evaluation, medication adjustment and close monitoring The patient's behavior, mood, sleep and appetite will be closely monitored. Patient enrolled in individual and group therapeutic sessions and encouraged to attend. Patient provided with a safe and structured environment. Patient's physical health needs will be addressed by the Hospitalist. Hospitalist Consulted Labs including CBC, CMP, Lipid profile and Hemoglobin A1C levels ordered for baseline reference Social Assessment will be completed and the Geospatial Image Analyst will work with patient and family to ensure a suitable and safe disposition Medication adjustment will be made as clinically indicated Continue home medications Change Sertraline to 100mg po daily. Start Vistaril 25mg po every 6 hours as needed for anxiety. The patient agreed to carlos Klonopin and start Vistaril 25 mg po every 6 hours as needed for anxiety Usual Wellness Islam/Preservation: - Start Trazodone 50 mg po QHS & 50 mg po QHS PRN between 10 PM & 2 AM for insomnia - Start Melatonin 5 mg po QHS to promote circadian rhythm The patient agreed on the treatment plan, understood the risk, benefit, alternative treatment, potential consequence of no treatment, and gave informed consent. Estimated days: 4 Post hospital care: primary care provider, psychiatric provider Case staffed with Dr. Renteria Medications and Allergies Medications and Allergies Allergies Allergy/AdvReac Type Severity Reaction Status Date / Time No Known Allergies Allergy Verified 04/15/21 20:33 Home Medications Medication Instructions Recorded Confirmed Last Taken Type Nicotine [Habitrol] 21 mg TD DAILY 04/15/21 04/15/21 04/15/21 11:00 History Sertraline [Zoloft] 25 mg PO QDAY 04/15/21 04/15/21 Unknown History risperiDONE [RisperDAL] 0.5 mg PO BID 04/15/21 04/15/21 04/15/21 16:00 History OLANZapine [Zyprexa] 15 mg PO HS 04/16/21 04/16/21 Unknown History amLODIPine [Norvasc] 5 mg PO DAILY 04/16/21 04/16/21 Unknown History Active Meds: Active Medications Amlodipine Besylate (Amlodipine 5 Mg Tab) 5 mg PO DAILY [facility] Last Admin: 04/18/21 09:42 Dose: 5 mg Documented by: Gabapentin (Gabapentin 300 Mg Cap) 300 mg PO Q8HR [facility] Last Admin: 04/19/21 05:30 Dose: 300 mg Documented by: Hydroxyzine Pamoate (Hydroxyzine Pamoate 25 Mg Cap) 25 mg PO Q6H PRN PRN Reason: Anxiety Last Admin: 04/18/21 21:44 Dose: 25 mg Documented by: Ibuprofen (Ibuprofen 800 Mg Tab) 800 mg PO Q8H PRN PRN Reason: Pain, Mild (1-3) Last Admin: 04/18/21 21:41 Dose: 800 mg Documented by: Nicotine (Nicotine 21 Mg/24 Hr Patch) 21 mg TD DAILY [facility] Last Admin: 04/18/21 09:41 Dose: 21 mg Documented by: Olanzapine (Olanzapine 5 Mg Tab) 15 mg PO QHS [facility] Last Admin: 04/18/21 21:43 Dose: 15 mg Documented by: Sertraline HCl (Sertraline 50 Mg Tab) 50 mg PO QDAY [facility] Last Admin: 04/18/21 09:41 Dose: 50 mg Documented by: Trazodone HCl (Trazodone 50 Mg Tab) 50 mg PO QHS [facility] Last Admin: 04/18/21 21:43 Dose: 50 mg Documented by: Results - Results Labs/Vitals: Laboratory Last Values WBC 6.3 K/mm3 (4.5-11.0) 04/16/21 10:06 RBC 4.97 M/mm3 (3.65-5.03) 04/16/21 10:06 Hgb 14.9 gm/dl (11.8-15.2) 04/16/21 10:06 Hct 43.5 % (35.5-45.6) 04/16/21 10:06 MCV 88 fl (84-94) 04/16/21 10:06 MCH 30 pg (28-32) 04/16/21 10:06 MCHC 34 % (32-34) 04/16/21 10:06 RDW 14.5 % (13.2-15.2) 04/16/21 10:06 Plt Count 241 K/mm3 (140-440) 04/16/21 10:06 Lymph % (Auto) 25.1 % (13.4-35.0) 04/16/21 10:06 [place] % (Auto) 6.8 % (0.0-7.3) 04/16/21 10:06 Eos % (Auto) 1.5 % (0.0-4.3) 04/16/21 10:06 Baso % (Auto) 0.6 % (0.0-1.8) 04/16/21 10:06 Lymph # (Auto) 1.6 K/mm3 (1.2-5.4) 04/16/21 10:06 [place] # (Auto) 0.4 K/mm3 (0.0-0.8) 04/16/21 10:06 Eos # (Auto) 0.1 K/mm3 (0.0-0.4) 04/16/21 10:06 Baso # (Auto) 0.0 K/mm3 (0.0-0.1) 04/16/21 10:06 Seg Neutrophils % 66.0 % (40.0-70.0) 04/16/21 10:06 Seg Neutrophils # 4.1 K/mm3 (1.8-7.7) 04/16/21 10:06 Sodium 139 mmol/L (137-145) 04/16/21 10:06 Potassium 4.0 mmol/L (3.6-5.0) 04/16/21 10:06 Chloride 106.5 mmol/L (98-107) 04/16/21 10:06 Carbon Dioxide 25 mmol/L (22-30) 04/16/21 10:06 Anion Gap 12 mmol/L 04/16/21 10:06 BUN 14 mg/dL (9-20) 04/16/21 10:06 Creatinine 0.8 mg/dL (0.8-1.3) 04/16/21 10:06 Estimated GFR > 60 ml/min 04/16/21 10:06 BUN/Creatinine Ratio 18 % 04/16/21 10:06 Glucose 90 mg/dL (75-100) 04/16/21 10:06 Hemoglobin A1c 5.8 % (4-6) 04/16/21 10:06 Calcium 9.6 mg/dL (8.4-10.2) 04/16/21 10:06 Total Bilirubin 0.20 mg/dL (0.1-1.2) 04/16/21 10:06 AST 17 units/L (5-40) 04/16/21 10:06 ALT 19 units/L (7-56) 04/16/21 10:06 Alkaline Phosphatase 89 units/L (35-129) 04/16/21 10:06 Total Protein 6.8 g/dL (6.3-8.2) 04/16/21 10:06 Albumin 4.0 g/dL (3.9-5) 04/16/21 10:06 Albumin/Globulin Ratio 1.4 % 04/16/21 10:06 Triglycerides 117 mg/dL (2-149) 04/16/21 10:06 Cholesterol 178 mg/dL (50-199) 04/16/21 10:06 LDL Cholesterol Direct 118 mg/dL (50-130) 04/16/21 10:06 HDL Cholesterol 48 mg/dL (40-59) 04/16/21 10:06 Cholesterol/HDL Ratio 3.70 % 04/16/21 10:06 TSH 0.544 mlU/mL (0.270-4.200) 04/16/21 10:06 Last Vital Signs Temp 98.9 F 04/18/21 19:32 Pulse 77 04/18/21 19:32 Resp 18 04/18/21 21:41 BP 102/71 04/18/21 19:32 Pulse Ox 99 04/18/21 19:32
[2021-04-19] MEDS: NICOTINE 21 MG/24 HR PATCH TD SCH (09:36)
[2021-04-19] MEDS: IBUPROFEN 800 MG TAB PO PRN ×2 (09:37→20:19)
[2021-04-19] MEDS: amLODIPine 5 MG TAB PO SCH (09:38)
[2021-04-19] MEDS: hydrOXYzine PAMOATE 25 MG CAP PO PRN ×2 (09:39→15:27)
[2021-04-19] MEDS: SERTRALINE 100 MG TAB PO SCH (11:48)
[2021-04-19] MEDS: traZODone 50 MG TAB PO SCH (21:13)
[2021-04-20] MEDS: GABAPENTIN 300 MG CAP PO SCH ×2 (06:07→13:42)
--- NOTE | 2021-04-20 08:32 | Progress Note ---
Subjective Date of service: 04/20/21 Subjective Comment: 04/17/2021: The patient was seen eating breakfast, he reports feeling better. He reports sleep and appetite as good. The patient denies any current suicidal/homicidal ideation and denies hallucinations. per nurse, the patient had a quiet night. No changes made today. 04/18/2021: The patient continues to complain of being depressed. He reports sleep as fair and appetite as good. The patient denies any current suicidal/homicidal ideation and denies hallucinations. per nurse, the patient had a quiet night. Change Sertraline to 50mg po daily. 04/19/2021: The continues to endorse depression. reports sleep as fair and appetite as good. The patient denies any current suicidal/homicidal ideation and denies hallucinations. per nurse, the patient had a quiet night. Change Sertraline to 100mg po daily. Per nurse, the patient had a quiet night. 04/19/2021: The patient reports doing well. He reports sleep as good and appetite as good. The patient denies any current suicidal/homicidal ideation and denies hallucinations. per nurse, the patient had a quiet night. Per nurse, the patient had a quiet night. No changes today. REVIEW OF SYSTEMS Constitutional: Negative for weight loss ENT: Negative for stridor Respiratory: Negative for cough or hemoptysis All other systems reviewed and are negative MENTAL STATUS EXAMINATION General Appearance and Behavior: Age appropriate, good hygiene, wearing appropriate clothes, calm and cooperative polite with questioning. Cooperation: engaged Psychomotor Behavior: Psychomotor normal Mood: "Ok" Affect and affective range: congruent with stated mood Thought Process: goal directed Thought Content: Not Suicidal Speech: Normal volume, Regular rate and rhythm, Suicidal Ideation: Denies Homicidal Ideation: Denies Hallucinations: Denies Delusions: None elicited Impulse Control: Questionable Insight and Judgment: Limited insight, fair Judgment Memory: Limited Attention: attentive Orientation: a/o Assessment and Plan (1)Schizophrenia Treatment Plan Patient admitted for inpatient psychiatric evaluation, medication adjustment and close monitoring The patient's behavior, mood, sleep and appetite will be closely monitored. Patient enrolled in individual and group therapeutic sessions and encouraged to attend. Patient provided with a safe and structured environment. Patient's physical health needs will be addressed by the Hospitalist. Hospitalist Consulted Labs including CBC, CMP, Lipid profile and Hemoglobin A1C levels ordered for baseline reference Social Assessment will be completed and the Retread Supervisor will work with patient and family to ensure a suitable and safe disposition Medication adjustment will be made as clinically indicated Continue home medications. Continue Sertraline to 100mg po daily. No changes made today. Start Vistaril 25mg po every 6 hours as needed for anxiety. The patient agreed to carlos Klonopin and start Vistaril 25 mg po every 6 hours as needed for anxiety Usual Wellness Bahai/Preservation: - Start Trazodone 50 mg po QHS & 50 mg po QHS PRN between 10 PM & 2 AM for insomnia - Start Melatonin 5 mg po QHS to promote circadian rhythm The patient agreed on the treatment plan, understood the risk, benefit, alternative treatment, potential consequence of no treatment, and gave informed consent. Estimated days: 3 Post hospital care: primary care provider, psychiatric provider Case staffed with Dr. Renteria Medications and Allergies Allergies Allergy/AdvReac Type Severity Reaction Status Date / Time No Known Allergies Allergy Verified 04/15/21 20:33 Home Medications Medication Instructions Recorded Confirmed Last Taken Type Nicotine [Habitrol] 21 mg TD DAILY 04/15/21 04/15/21 04/15/21 11:00 History Sertraline [Zoloft] 25 mg PO QDAY 04/15/21 04/15/21 Unknown History risperiDONE [RisperDAL] 0.5 mg PO BID 04/15/21 04/15/21 04/15/21 16:00 History OLANZapine [Zyprexa] 15 mg PO HS 04/16/21 04/16/21 Unknown History amLODIPine [Norvasc] 5 mg PO DAILY 04/16/21 04/16/21 Unknown History Active Meds: Active Medications Amlodipine Besylate (Amlodipine 5 Mg Tab) 5 mg PO DAILY KAJAL Last Admin: 04/19/21 09:38 Dose: 5 mg Documented by: Gabapentin (Gabapentin 300 Mg Cap) 300 mg PO Q8HR KAJAL Last Admin: 04/20/21 06:07 Dose: 300 mg Documented by: Hydroxyzine Pamoate (Hydroxyzine Pamoate 25 Mg Cap) 25 mg PO Q6H PRN PRN Reason: Anxiety Last Admin: 04/19/21 15:27 Dose: 25 mg Documented by: Ibuprofen (Ibuprofen 800 Mg Tab) 800 mg PO Q8H PRN PRN Reason: Pain, Mild (1-3) Last Admin: 04/19/21 20:19 Dose: 800 mg Documented by: Nicotine (Nicotine 21 Mg/24 Hr Patch) 21 mg TD DAILY [facility] Last Admin: 04/19/21 09:36 Dose: 21 mg Documented by: Olanzapine (Olanzapine 5 Mg Tab) 15 mg PO QHS [facility] Last Admin: 04/19/21 21:13 Dose: 15 mg Documented by: Sertraline HCl (Sertraline 100 Mg Tab) 100 mg PO QDAY [facility] Last Admin: 04/19/21 11:48 Dose: 100 mg Documented by: Trazodone HCl (Trazodone 50 Mg Tab) 50 mg PO QHS [facility] Last Admin: 04/19/21 21:13 Dose: 50 mg Documented by: Results - Results Labs/Vitals: Laboratory Last Values WBC 6.3 K/mm3 (4.5-11.0) 04/16/21 10:06 RBC 4.97 M/mm3 (3.65-5.03) 04/16/21 10:06 Hgb 14.9 gm/dl (11.8-15.2) 04/16/21 10:06 Hct 43.5 % (35.5-45.6) 04/16/21 10:06 MCV 88 fl (84-94) 04/16/21 10:06 MCH 30 pg (28-32) 04/16/21 10:06 MCHC 34 % (32-34) 04/16/21 10:06 RDW 14.5 % (13.2-15.2) 04/16/21 10:06 Plt Count 241 K/mm3 (140-440) 04/16/21 10:06 Lymph % (Auto) 25.1 % (13.4-35.0) 04/16/21 10:06 [place] % (Auto) 6.8 % (0.0-7.3) 04/16/21 10:06 Eos % (Auto) 1.5 % (0.0-4.3) 04/16/21 10:06 Baso % (Auto) 0.6 % (0.0-1.8) 04/16/21 10:06 Lymph # (Auto) 1.6 K/mm3 (1.2-5.4) 04/16/21 10:06 [place] # (Auto) 0.4 K/mm3 (0.0-0.8) 04/16/21 10:06 Eos # (Auto) 0.1 K/mm3 (0.0-0.4) 04/16/21 10:06 Baso # (Auto) 0.0 K/mm3 (0.0-0.1) 04/16/21 10:06 Seg Neutrophils % 66.0 % (40.0-70.0) 04/16/21 10:06 Seg Neutrophils # 4.1 K/mm3 (1.8-7.7) 04/16/21 10:06 Sodium 139 mmol/L (137-145) 04/16/21 10:06 Potassium 4.0 mmol/L (3.6-5.0) 04/16/21 10:06 Chloride 106.5 mmol/L (98-107) 04/16/21 10:06 Carbon Dioxide 25 mmol/L (22-30) 04/16/21 10:06 Anion Gap 12 mmol/L 04/16/21 10:06 BUN 14 mg/dL (9-20) 04/16/21 10:06 Creatinine 0.8 mg/dL (0.8-1.3) 04/16/21 10:06 Estimated GFR > 60 ml/min 04/16/21 10:06 BUN/Creatinine Ratio 18 % 04/16/21 10:06 Glucose 90 mg/dL (75-100) 04/16/21 10:06 Hemoglobin A1c 5.8 % (4-6) 04/16/21 10:06 Calcium 9.6 mg/dL (8.4-10.2) 04/16/21 10:06 Total Bilirubin 0.20 mg/dL (0.1-1.2) 04/16/21 10:06 AST 17 units/L (5-40) 04/16/21 10:06 ALT 19 units/L (7-56) 04/16/21 10:06 Alkaline Phosphatase 89 units/L (35-129) 04/16/21 10:06 Total Protein 6.8 g/dL (6.3-8.2) 04/16/21 10:06 Albumin 4.0 g/dL (3.9-5) 04/16/21 10:06 Albumin/Globulin Ratio 1.4 % 04/16/21 10:06 Triglycerides 117 mg/dL (2-149) 04/16/21 10:06 Cholesterol 178 mg/dL (50-199) 04/16/21 10:06 LDL Cholesterol Direct 118 mg/dL (50-130) 04/16/21 10:06 HDL Cholesterol 48 mg/dL (40-59) 04/16/21 10:06 Cholesterol/HDL Ratio 3.70 % 04/16/21 10:06 TSH 0.544 mlU/mL (0.270-4.200) 04/16/21 10:06 Last Vital Signs Temp 98.9 F 04/19/21 19:20 Pulse 74 04/19/21 19:20 Resp 18 04/19/21 20:19 BP 101/70 04/19/21 19:20 Pulse Ox 97 04/19/21 19:20
[2021-04-20 08:36] VITALS: BP 126/83
--- NOTE | 2021-04-20 08:40 | Discharge Summary ---
Providers - Providers Date of Admission: 04/15/21 20:05 Date of discharge: 04/20/21 Attending physician: GISSEL MOY MD 04/15/21 15:14 Consult to Physician [CONS] Routine Comment: Consulting Provider: NELI MCFARLANE Physician Instructions: Reason For Exam: manage medical conditions Primary care physician: NOTCH GRINDER Hospitalization Hospital course: The patient was provided inpatient psychiatric treatment with safe and supportive environment, group/individual therapy, psychiatric medication, medication adjustment, adverse effect monitor, medical evaluation, medical treatment, social service assessment, social support meeting, placement assessment and psycho-education. The patients mood, cognition, behavior, motivation, compliance to treatment and appreciation on family/social support are improved and stabilized. At the time of discharge, the patient had no suicidal ideas, no homicidal ideas, no aggressive thoughts, no endangering beha vior and no debilitating adverse effects. The patient agreed on the treatment plan, understood the risk, benefit, alternative treatment, potential consequence of no treatment, and gave informed consent. Progress Note: 04/17/2021: The patient was seen eating breakfast, he reports feeling better. He reports sleep and appetite as good. The patient denies any current suicidal/homicidal ideation and denies hallucinations. per nurse, the patient had a quiet night. No changes made today. 04/18/2021: The patient continues to complain of being depressed. He reports sleep as fair and appetite as good. The patient denies any current suicidal/homicidal ideation and denies hallucinations. per nurse, the patient had a quiet night. Change Sertraline to 50mg po daily. 04/19/2021: The continues to endorse depression. reports sleep as fair and appetite as good. The patient denies any current suicidal/homicidal ideation and denies hallucinations. per nurse, the patient had a quiet night. Change Sertraline to 100mg po daily. Per nurse, the patient had a quiet night. 04/20/2021: The patient reports doing well. He reports sleep as good and appetite as good. The patient denies any current suicidal/homicidal ideation and denies hallucinations. per nurse, the patient had a quiet night. Per nurse, the patient had a quiet night. No changes today. Disposition: 30 STILL A PATIENT Allergies/Adverse Reactions: Allergies No Known Allergies Allergy (Verified 04/15/21 20:33) Vital Signs: Last Vital Signs Temp 98.5 F 04/20/21 07:26 Pulse 80 04/20/21 07:26 Resp 18 04/20/21 07:26 BP 126/83 04/20/21 07:26 Pulse Ox 98 04/20/21 07:26 Last Lab: Laboratory Last Values WBC 6.3 K/mm3 (4.5-11.0) 04/16/21 10:06 RBC 4.97 M/mm3 (3.65-5.03) 04/16/21 10:06 Hgb 14.9 gm/dl (11.8-15.2) 04/16/21 10:06 Hct 43.5 % (35.5-45.6) 04/16/21 10:06 MCV 88 fl (84-94) 04/16/21 10:06 MCH 30 pg (28-32) 04/16/21 10:06 MCHC 34 % (32-34) 04/16/21 10:06 RDW 14.5 % (13.2-15.2) 04/16/21 10:06 Plt Count 241 K/mm3 (140-440) 04/16/21 10:06 Lymph % (Auto) 25.1 % (13.4-35.0) 04/16/21 10:06 [place] % (Auto) 6.8 % (0.0-7.3) 04/16/21 10:06 Eos % (Auto) 1.5 % (0.0-4.3) 04/16/21 10:06 Baso % (Auto) 0.6 % (0.0-1.8) 04/16/21 10:06 Lymph # (Auto) 1.6 K/mm3 (1.2-5.4) 04/16/21 10:06 [place] # (Auto) 0.4 K/mm3 (0.0-0.8) 04/16/21 10:06 Eos # (Auto) 0.1 K/mm3 (0.0-0.4) 04/16/21 10:06 Baso # (Auto) 0.0 K/mm3 (0.0-0.1) 04/16/21 10:06 Seg Neutrophils % 66.0 % (40.0-70.0) 04/16/21 10:06 Seg Neutrophils # 4.1 K/mm3 (1.8-7.7) 04/16/21 10:06 Sodium 139 mmol/L (137-145) 04/16/21 10:06 Potassium 4.0 mmol/L (3.6-5.0) 04/16/21 10:06 Chloride 106.5 mmol/L (98-107) 04/16/21 10:06 Carbon Dioxide 25 mmol/L (22-30) 04/16/21 10:06 Anion Gap 12 mmol/L 04/16/21 10:06 BUN 14 mg/dL (9-20) 04/16/21 10:06 Creatinine 0.8 mg/dL (0.8-1.3) 04/16/21 10:06 Estimated GFR > 60 ml/min 04/16/21 10:06 BUN/Creatinine Ratio 18 % 04/16/21 10:06 Glucose 90 mg/dL (75-100) 04/16/21 10:06 Hemoglobin A1c 5.8 % (4-6) 04/16/21 10:06 Calcium 9.6 mg/dL (8.4-10.2) 04/16/21 10:06 Total Bilirubin 0.20 mg/dL (0.1-1.2) 04/16/21 10:06 AST 17 units/L (5-40) 04/16/21 10:06 ALT 19 units/L (7-56) 04/16/21 10:06 Alkaline Phosphatase 89 units/L (35-129) 04/16/21 10:06 Total Protein 6.8 g/dL (6.3-8.2) 04/16/21 10:06 Albumin 4.0 g/dL (3.9-5) 04/16/21 10:06 Albumin/Globulin Ratio 1.4 % 04/16/21 10:06 Triglycerides 117 mg/dL (2-149) 04/16/21 10:06 Cholesterol 178 mg/dL (50-199) 04/16/21 10:06 LDL Cholesterol Direct 118 mg/dL (50-130) 04/16/21 10:06 HDL Cholesterol 48 mg/dL (40-59) 04/16/21 10:06 Cholesterol/HDL Ratio 3.70 % 04/16/21 10:06 TSH 0.544 mlU/mL (0.270-4.200) 04/16/21 10:06 Core Measure Documentation - Palliative Care Palliative Care/ Comfort Measures: Not Applicable - Core Measures Any of the following diagnoses?: none - VTE Discharge Requirements Deep Vein Thrombosis/Pulmonary Embolism Present on Admission: No Exam - Constitutional Vitals: Temp Pulse Resp BP Pulse Ox 98.5 F 80 18 126/83 98 04/20/21 07:26 04/20/21 07:26 04/20/21 07:26 04/20/21 07:26 04/20/21 07:26 Plan Activity: advance as tolerated Weight Bearing Status: Weight Bear as Tolerated Diet: regular Care Plan Goals: Maintain good and stable mental health. Plan of Treatment: The patient should be compliant with medications, not to use drugs and not to drink alcohol. The patient understands that if suicidal ideas, homicidal ideas, or any endangering thoughts arise, the patient should immediately seek for emergent assistance including but not limited to crisis hot line and emergency room. Follow up with outpatient Psychiatrist and PCP within 7 - 14 days of discharge. Follow up with: PRIMARY CARE, [Primary Care Provider] - 7 Days Prescriptions: OLANzapine [ZyPREXA] 15 mg PO QHS 30 Days #30 tablet Gabapentin 300 mg PO Q8HR 30 Days #60 capsule hydrOXYzine PAMOATE [Vistaril] 25 mg PO Q6H PRN 30 Days #60 capsule PRN Reason: Anxiety Sertraline [Zoloft] 100 mg PO QDAY 30 Days #30 tablet
[2021-04-20] MEDS: NICOTINE 21 MG/24 HR PATCH TD SCH (09:25)
[2021-04-20] MEDS: hydrOXYzine PAMOATE 25 MG CAP PO PRN (09:25)
[2021-04-20] MEDS: amLODIPine 5 MG TAB PO SCH (09:25)
[2021-04-20] MEDS: IBUPROFEN 800 MG TAB PO PRN (09:26)
[2021-04-20] MEDS: SERTRALINE 100 MG TAB PO SCH (09:27)
== END 2021-04-20 15:20 | disposition home or self-care (01) | DRG 885 ==
LOC: UNDOADMIN 14:53 → 3A 14:53 → 5A 20:05
PROVIDERS: ADMIT Psychiatry & Neurology Psychiatry; ATTEND Psychiatry & Neurology Psychiatry
DX: F20.9 Schizophrenia, unspecified (principal); F41.9 Anxiety disorder, unspecified; F31.9 Bipolar disorder, unspecified; F17.210 Nicotine dependence, cigarettes, uncomplicated; Z91.5 Personal history of self-harm; Z79.899 Other long term (current) drug therapy
CPT/HCPCS: 36415; 80053; 80061; 80307; 80320; 81001; 83036; 84443; 85025; 99284; G0378; G0480; Q0177; U0003

== ENCOUNTER 2021-05-22 13:20 | Inpatient (IN) | payer MEDICAID ==
--- NOTE | 2021-05-22 16:03 | Emergency Department Report ---
ED Psych HPI - General Chief Complaint: Psych Stated Complaint: MH EVAL Time Seen by Provider: 05/22/21 15:12 Source: patient, EMS Mode of arrival: Wheelchair - History of Present Illness Initial Comments: 45-year-old male presents to ED with complaint of suicidal ideations. Patient states he plans to run in front of traffic. Patient states he is feeling this way because he has been off of his psychiatric medications x1 week. MD Complaint: suicidal ideation -: unknown Associated Psychiatric Symptoms: suicidal ideation History of same: Yes Improves With: medication Context: not taking psychiatric Associated Symptoms: denies other symptoms Treatments Prior to Arrival: none If Self Harm: has plan (To walk into traffic) - Related Data Home Medications Medication Instructions Recorded Confirmed Last Taken amLODIPine 5 mg PO DAILY 04/16/21 05/24/21 Unknown Previous Rx's Medication Instructions Recorded Last Taken Type Gabapentin 300 mg PO Q8HR 30 Days #60 capsule 04/20/21 Unknown Rx Ibuprofen [Motrin 800 MG tab] 800 mg PO Q8H PRN tablet 04/20/21 Unknown Rx amLODIPine 5 mg PO DAILY tablet 04/20/21 Unknown Rx Nicotine [Habitrol] 21 mg TD QDAY #30 patch 05/27/21 Unknown Rx OLANzapine [Zyprexa] 10 mg PO QDAY #30 tablet 05/27/21 Unknown Rx Sertraline [Zoloft] 200 mg PO QDAY #60 tablet 05/27/21 Unknown Rx hydrOXYzine PAMOATE [Vistaril] 25 mg PO BID PRN #60 capsule 05/27/21 Unknown Rx traZODone [Desyrel] 50 mg PO QHS #30 tablet 05/27/21 Unknown Rx Allergies Allergy/AdvReac Type Severity Reaction Status Date / Time No Known Allergies Allergy Verified 04/15/21 20:33 ED Review of Systems ROS: Stated complaint: MH EVAL Other details as noted in HPI Comment: All other systems reviewed and negative Psychiatric: suicidal thoughts ED Past Medical Hx - Past Medical History Previous Medical History?: Yes Hx Congestive Heart Failure: No Hx Diabetes: No Hx Renal Disease: No Hx Arthritis: No Hx Seizures: No Hx Psychiatric Treatment: Yes Hx Asthma: No Hx COPD: No Hx Dementia: No - Surgical History Past Surgical History?: No Hx Cholecystectomy: No Hx Appendectomy: No - Social History Smoking Status: Current Every Day Smoker Substance Use Type: Prescribed - Medications Home Medications: Home Medications Medication Instructions Recorded Confirmed Last Taken Type amLODIPine 5 mg PO DAILY 04/16/21 05/24/21 Unknown History Gabapentin 300 mg PO Q8HR 30 Days #60 capsule 04/20/21 05/23/21 Unknown Rx Ibuprofen [Motrin 800 MG tab] 800 mg PO Q8H PRN tablet 04/20/21 05/23/21 Unknown Rx amLODIPine 5 mg PO DAILY tablet 04/20/21 05/23/21 Unknown Rx Nicotine [Habitrol] 21 mg TD QDAY #30 patch 05/27/21 Unknown Rx OLANzapine [Zyprexa] 10 mg PO QDAY #30 tablet 05/27/21 Unknown Rx Sertraline [Zoloft] 200 mg PO QDAY #60 tablet 05/27/21 Unknown Rx hydrOXYzine PAMOATE [Vistaril] 25 mg PO BID PRN #60 capsule 05/27/21 Unknown Rx traZODone [Desyrel] 50 mg PO QHS #30 tablet 05/27/21 Unknown Rx ED Physical Exam - General Limitations: No Limitations General appearance: alert, in no apparent distress - Head Head exam: Present: atraumatic, normocephalic - Eye Eye exam: Present: normal appearance, EOMI - ENT ENT exam: Present: mucous membranes moist - Neck Neck exam: Present: normal inspection - Respiratory Respiratory exam: Present: normal lung sounds bilaterally. Absent: respiratory distress - Cardiovascular Cardiovascular Exam: Present: regular rate, normal rhythm - GI/Abdominal GI/Abdominal exam: Absent: distended - Extremities Exam Extremities exam: Present: normal inspection - Neurological Exam Neurological exam: Present: alert, oriented X3 - Psychiatric Psychiatric exam: Present: suicidal ideation - Skin Skin exam: Present: warm, dry, intact, normal color ED Course Vital Signs 05/22/21 05/22/21 05/23/21 15:04 19:53 08:53 Temperature 98.5 F 98.4 F 98.3 F Pulse Rate 86 74 81 Respiratory 18 18 18 Rate Blood Pressure 150/89 Blood Pressure 100/62 117/82 [Left] O2 Sat by Pulse 98 97 Oximetry 05/23/21 19:42 Temperature 98.4 F Pulse Rate 80 Respiratory 18 Rate Blood Pressure Blood Pressure 102/66 [Left] O2 Sat by Pulse 97 Oximetry ED Medical Decision Making - Lab Data Result diagrams: 05/24/21 05:19 05/24/21 05:19 - Medical Decision Making 45-year-old male presents to ED with suicidal ideations. Vital signs stable. Labs reviewed. Patient is medically clear for mental health evaluation. Will dispo per psych. Critical care attestation.: If time is entered above; I have spent that time in minutes in the direct care of this critically ill patient, excluding procedure time. ED Disposition Clinical Impression: Suicidal ideation Disposition: HOME / SELF CARE / HOMELESS Is pt being admited?: No
[2021-05-22 16:20] LABS: Basophils # (Auto) 0.1 K/mm3 (0.0-0.1); Basophils % (Auto) 1.1 % (0.0-1.8); Eosinophils # (Auto) 0.1 K/mm3 (0.0-0.4); Eosinophils % (Auto) 1.3 % (0.0-4.3); Hematocrit 46.7 % (35.5-45.6); Hemoglobin 15.8 gm/dl (11.8-15.2); Lymphocytes # (Auto) 2.3 K/mm3 (1.2-5.4); Lymphocytes % (Auto) 25.7 % (13.4-35.0); Mean Corpuscular HGB Conc 34 % (32-34); Mean Corpuscular Volume 87 fl (84-94); Monocytes # (Auto) 0.5 K/mm3 (0.0-0.8); Monocytes % (Auto) 5.2 % (0.0-7.3); Platelet Count 258 K/mm3 (140-440); Red Blood Count 5.34 M/mm3 (3.65-5.03); Red Cell Distribution Width 14.2 % (13.2-15.2)
[2021-05-22 16:38] LABS: Alanine Aminotransferase 12 units/L (7-56); Albumin 4.6 g/dL (3.9-5); BUN/Creatinine Ratio 16; Blood Urea Nitrogen 13 mg/dL (9-20); Calcium 9.6 mg/dL (8.4-10.2); Hemolysis Index 25
[2021-05-22 16:40] LABS: Bilirubin,Direct < 0.2 mg/dL (0-0.2)
--- NOTE | 2021-05-23 09:14 | Consultation ---
History of Present Illness - Reason for Consult Consult date: 05/23/21 Reason for consult: SI - History of Present Psychiatric Illness Per ER Note: 45-year-old male presents to ED with complaint of suicidal ideations. Patient states he plans to run in front of traffic. Patient states he is feeling this way because he has been off of his psychiatric medications x1 week. The patient was seen today. He states he has been suicidal for about a week. He says he feels that he has gotten worse over the last couple of days. He appears nervous. He says he is seeing things and hearing voices telling him to do bad things to himself. PAST PSYCHIATRIC HISTORY: Diagnoses: Depression, Anxiety, Bipolar, Schizophrenia Suicide attempts or Self-harm behavior: X20 Prior psychiatric hospitalizations: Yes Substance Abuse history: Denies Previous psychiatric medications tried: Yes Outpatient treatment: yes PAST MEDICAL HISTORY: None reported or document Family Psychiatric History: None reported or documented SOCIAL HISTORY Marital Status: Single Living Arrangements: Transitional home Employment Status: Unemployed Access to guns/weapons: denies Education: 12th grade History of Abuse: denies Legal History: denies REVIEW OF SYSTEMS Constitutional: Negative for weight loss ENT: Negative for stridor Respiratory: Negative for cough or hemoptysis All other systems reviewed and are negative MENTAL STATUS EXAMINATION General Appearance and Behavior: Age appropriate, good hygiene, wearing appropriate clothes, calm and cooperative polite with questioning. Cooperation: engaged Psychomotor Behavior: Psychomotor normal Mood: depressed Affect and affective range: congruent with stated mood Thought Process: goal directed Thought Content: Suicidal Speech: Normal volume, Regular rate and rhythm, Suicidal Ideation: Yes Homicidal Ideation: Denies Hallucinations: Auditory and visual Delusions: None elicited Impulse Control: Questionable Insight and Judgment: Limited Memory: Limited Attention: attentive Orientation: a/o Assessment and Plan (1)Schizophrenia Treatment Plan 1013 Zoloft 25mg po daily Vistaril 25mg po BID prn anxiety Olanzapine 5mg po daily Sitter: per primary Medical: Per primary Disposition: Recommend acute psychiatric inpatient treatment Will follow. Thanks case staffed with Dr. Renteria Medications and Allergies Allergies Allergy/AdvReac Type Severity Reaction Status Date / Time No Known Allergies Allergy Verified 04/15/21 20:33 Home Medications Medication Instructions Recorded Confirmed Last Taken Type Nicotine [Habitrol] 21 mg TD DAILY 04/15/21 04/15/21 04/15/21 11:00 History Sertraline [Zoloft] 25 mg PO QDAY 04/15/21 04/15/21 Unknown History risperiDONE [RisperDAL] 0.5 mg PO BID 04/15/21 04/15/21 04/15/21 16:00 History OLANZapine [Zyprexa] 15 mg PO HS 04/16/21 04/16/21 Unknown History amLODIPine 5 mg PO DAILY 04/16/21 04/16/21 Unknown History Gabapentin 300 mg PO Q8HR 30 Days #60 capsule 04/20/21 Unknown Rx Ibuprofen [Motrin 800 MG tab] 800 mg PO Q8H PRN tablet 04/20/21 Unknown Rx OLANzapine [ZyPREXA] 15 mg PO QHS 30 Days #30 tablet 04/20/21 Unknown Rx Sertraline [Zoloft] 100 mg PO QDAY 30 Days #30 tablet 04/20/21 Unknown Rx amLODIPine 5 mg PO DAILY tablet 04/20/21 Unknown Rx hydrOXYzine PAMOATE [Vistaril] 25 mg PO Q6H PRN 30 Days #60 04/20/21 Unknown Rx capsule Mental Status Exam - Vital signs Last Vital Signs Temp 98.3 F 05/23/21 08:53 Pulse 81 05/23/21 08:53 Resp 18 05/23/21 08:53 BP 117/82 05/23/21 08:53 Pulse Ox 97 05/22/21 19:53 Results Result Diagrams: 05/22/21 15:43 05/22/21 15:43 Abnormal lab results 05/22/21 05/22/21 05/22/21 Range/Units 15:43 15:43 15:43 RBC 5.34 H (3.65-5.03) M/mm3 Hgb 15.8 H (11.8-15.2) gm/dl Hct 46.7 H (35.5-45.6) % Total Protein 8.3 H (6.3-8.2) g/dL Salicylates < 0.3 L (2.8-20.0) mg/dL Acetaminophen (10.0-30.0) ug/mL 05/22/21 Range/Units 15:43 RBC (3.65-5.03) M/mm3 Hgb (11.8-15.2) gm/dl Hct (35.5-45.6) % Total Protein (6.3-8.2) g/dL Salicylates (2.8-20.0) mg/dL Acetaminophen 5.0 L (10.0-30.0) ug/mL All other labs normal.
[2021-05-23] MEDS ORDERED: SERTRALINE 25 MG TAB PO SCH (10:00)
--- NOTE | 2021-05-23 10:02 | Emergency Department Report ---
Blank Doc - Documentation Documentation: Currently, patient is resting. There is no respiratory distress. He has been medically cleared. Psychiatric services saw the patient. They believe that inpatient admission is appropriate for psychiatric care. We will attempt placement. Urine drug screen is still pending.
[2021-05-23] MEDS: hydrOXYzine PAMOATE 25 MG CAP PO PRN (13:00)
[2021-05-23] MEDS ORDERED: IBUPROFEN 800 MG TAB PO ONE (17:48)
[2021-05-23 18:22] LABS: Amphetamine Screen,Urine PRESUMPTIVE NEGATIVE; Benzodiazepines Screen,Urine PRESUMPTIVE NEGATIVE; Cannabinoid Screen,Urine PRESUMPTIVE NEGATIVE; Cocaine Screen,Urine PRESUMPTIVE NEGATIVE; Methadone Screen,Urine PRESUMPTIVE NEGATIVE; Opiate Screen,Urine PRESUMPTIVE NEGATIVE
[2021-05-24] MEDS: GABAPENTIN 300 MG CAP PO SCH ×4 (00:38→22:21)
[2021-05-24] MEDS: IBUPROFEN 800 MG TAB PO PRN ×2 (00:51→10:55)
[2021-05-24 05:56] LABS: Basophils # (Auto) 0.1 K/mm3 (0.0-0.1); Basophils % (Auto) 0.9 % (0.0-1.8); Eosinophils # (Auto) 0.2 K/mm3 (0.0-0.4); Eosinophils % (Auto) 2.6 % (0.0-4.3); Hematocrit 43.4 % (35.5-45.6); Hemoglobin 14.9 gm/dl (11.8-15.2); Lymphocytes # (Auto) 2.1 K/mm3 (1.2-5.4); Lymphocytes % (Auto) 34.3 % (13.4-35.0); Mean Corpuscular HGB Conc 34 % (32-34); Mean Corpuscular Volume 87 fl (84-94); Monocytes # (Auto) 0.5 K/mm3 (0.0-0.8); Monocytes % (Auto) 8.1 % (0.0-7.3); Platelet Count 221 K/mm3 (140-440); Red Blood Count 4.98 M/mm3 (3.65-5.03); Red Cell Distribution Width 14.2 % (13.2-15.2)
[2021-05-24 06:16] LABS: Alanine Aminotransferase 14 units/L (7-56); Albumin 3.7 g/dL (3.9-5); Blood Urea Nitrogen 15 mg/dL (9-20); Calcium 8.7 mg/dL (8.4-10.2); Chol/HDL Ratio 4.33 %; HDL Cholesterol 42 mg/dL (40-59); Hemolysis Index 14; LDL Cholesterol,Direct 96 mg/dL (50-130)
[2021-05-24 06:17] LABS: BUN/Creatinine Ratio 21
--- NOTE | 2021-05-24 09:07 | History and Physical Report ---
GP History & Physical - History of Present Illness Date of admission: 05/23/21 Date of Examination: 05/24/21 Reason for Admission: Danger to self, Failure of Outpatient Treatment, Severe anxiety/depression History of Present Illness: Per Admission Note: pt presents to [facility] ED with complaint of suicidal ideation. pt has plan to run in front of traffic. David Guzmán is a 45y/o male patient I seen today. I first rounded on the patient in the ER. The patient endorses SI with a plan to run into traffic. The patient also states he is seeing white and black dots and hearing voices telling him to kill himself. He appears anxious. He is fidgety and his face is tense. He says he does not sleep well at night. The patient denies any illicit drug use or alcohol. He says he smokes a ppd of cigarets daily. PAST PSYCHIATRIC HISTORY: Diagnoses: Depression, Anxiety, Bipolar, Schizophrenia Suicide attempts or Self-harm behavior: X20 Prior psychiatric hospitalizations: Yes Substance Abuse history: Denies Previous psychiatric medications tried: Yes Outpatient treatment: yes PAST MEDICAL HISTORY: None reported or document Family Psychiatric History: None reported or documented SOCIAL HISTORY Marital Status: Single Living Arrangements: Transitional home Employment Status: Unemployed Access to guns/weapons: denies Education: 12th grade History of Abuse: denies Legal History: denies REVIEW OF SYSTEMS Constitutional: Negative for weight loss ENT: Negative for stridor Respiratory: Negative for cough or hemoptysis All other systems reviewed and are negative MENTAL STATUS EXAMINATION General Appearance and Behavior: Age appropriate, good hygiene, wearing appropriate clothes, calm and cooperative polite with questioning. Cooperation: engaged Psychomotor Behavior: Psychomotor normal Mood: depressed Affect and affective range: congruent with stated mood Thought Process: goal directed Thought Content: Suicidal Speech: Normal volume, Regular rate and rhythm, Suicidal Ideation: Yes Homicidal Ideation: Denies Hallucinations: Auditory and visual Delusions: None elicited Impulse Control: Questionable Insight and Judgment: Limited Memory: Limited Attention: attentive Orientation: a/o Assessment and Plan (1)Schizophrenia Treatment Plan Patient admitted for inpatient psychiatric evaluation, medication adjustment and close monitoring The patient's behavior, mood, sleep and appetite will be closely monitored. Patient enrolled in individual and group therapeutic sessions and encouraged to attend. Patient provided with a safe and structured environment. Patient's physical health needs will be addressed by the Hospitalist. Hospitalist Consulted Labs including CBC, CMP, Lipid profile and Hemoglobin A1C levels ordered for baseline reference Social Assessment will be completed and the Sanitation Manager will work with patient and family to ensure a suitable and safe disposition Medication adjustment will be made as clinically indicated Increased Olanzapine 7.5mg po daily Start Trarzodone 50mg po daily Increased Zoloft 50mg po daily Nicotine patch 21mg daily Usual Wellness Quaker/Preservation: - Start Trazodone 50 mg po QHS & 50 mg po QHS PRN between 10 PM & 2 AM for insomnia - Start Melatonin 5 mg po QHS to promote circadian rhythm The patient agreed on the treatment plan, understood the risk, benefit, alternative treatment, potential consequence of no treatment, and gave informed consent. Estimated days: 5 Post hospital care: primary care provider, psychiatric provider Case staffed with Dr. Renteria Legal Status: Voluntary Reaction to Hospitalization: Accepting Medications and Allergies Allergies Allergy/AdvReac Type Severity Reaction Status Date / Time No Known Allergies Allergy Verified 04/15/21 20:33 Home Medications Medication Instructions Recorded Confirmed Last Taken Type Nicotine [Habitrol] 21 mg TD DAILY 04/15/21 05/24/21 04/15/21 11:00 History Sertraline [Zoloft] 25 mg PO QDAY 04/15/21 05/23/21 Unknown History risperiDONE [RisperDAL] 0.5 mg PO BID 04/15/21 05/23/21 04/15/21 16:00 History OLANZapine [Zyprexa] 15 mg PO HS 04/16/21 05/24/21 Unknown History amLODIPine 5 mg PO DAILY 04/16/21 05/24/21 Unknown History Gabapentin 300 mg PO Q8HR 30 Days #60 capsule 04/20/21 05/23/21 Unknown Rx Ibuprofen [Motrin 800 MG tab] 800 mg PO Q8H PRN tablet 04/20/21 05/23/21 Unknown Rx OLANzapine [ZyPREXA] 15 mg PO QHS 30 Days #30 tablet 04/20/21 05/23/21 Unknown Rx Sertraline [Zoloft] 100 mg PO QDAY 30 Days #30 tablet 04/20/21 05/23/21 Unknown Rx amLODIPine 5 mg PO DAILY tablet 04/20/21 05/23/21 Unknown Rx hydrOXYzine PAMOATE [Vistaril] 25 mg PO Q6H PRN 30 Days #60 04/20/21 05/23/21 Unknown Rx capsule Active Meds: Active Medications Gabapentin (Gabapentin 300 Mg Cap) 300 mg PO Q8HR [facility] Last Admin: 05/24/21 06:30 Dose: 300 mg Documented by: Hydroxyzine Pamoate (Hydroxyzine Pamoate 25 Mg Cap) 25 mg PO BID PRN PRN Reason: Anxiety Last Admin: 05/23/21 13:00 Dose: 25 mg Documented by: Ibuprofen (Ibuprofen 800 Mg Tab) 800 mg PO Q8H PRN PRN Reason: Pain, Moderate (4-6) Last Admin: 05/24/21 00:51 Dose: 800 mg Documented by: Olanzapine (Olanzapine 5 Mg Tab) 5 mg PO QDAY [facility] Last Admin: 05/23/21 13:00 Dose: 5 mg Documented by: Sertraline HCl (Sertraline 25 Mg Tab) 25 mg PO QDAY [facility] Last Admin: 05/23/21 13:00 Dose: 25 mg Documented by: Results - Results Labs/Vitals: Laboratory Last Values WBC 6.2 K/mm3 (4.5-11.0) 05/24/21 05:19 RBC 4.98 M/mm3 (3.65-5.03) 05/24/21 05:19 Hgb 14.9 gm/dl (11.8-15.2) 05/24/21 05:19 Hct 43.4 % (35.5-45.6) 05/24/21 05:19 MCV 87 fl (84-94) 05/24/21 05:19 MCH 30 pg (28-32) 05/24/21 05:19 MCHC 34 % (32-34) 05/24/21 05:19 RDW 14.2 % (13.2-15.2) 05/24/21 05:19 Plt Count 221 K/mm3 (140-440) 05/24/21 05:19 Lymph % (Auto) 34.3 % (13.4-35.0) 05/24/21 05:19 [place] % (Auto) 8.1 % (0.0-7.3) H 05/24/21 05:19 Eos % (Auto) 2.6 % (0.0-4.3) 05/24/21 05:19 Baso % (Auto) 0.9 % (0.0-1.8) 05/24/21 05:19 Lymph # (Auto) 2.1 K/mm3 (1.2-5.4) 05/24/21 05:19 [place] # (Auto) 0.5 K/mm3 (0.0-0.8) 05/24/21 05:19 Eos # (Auto) 0.2 K/mm3 (0.0-0.4) 05/24/21 05:19 Baso # (Auto) 0.1 K/mm3 (0.0-0.1) 05/24/21 05:19 Seg Neutrophils % 54.1 % (40.0-70.0) 05/24/21 05:19 Seg Neutrophils # 3.3 K/mm3 (1.8-7.7) 05/24/21 05:19 Sodium 140 mmol/L (137-145) 05/24/21 05:19 Potassium 3.7 mmol/L (3.6-5.0) 05/24/21 05:19 Chloride 106.2 mmol/L (98-107) 05/24/21 05:19 Carbon Dioxide 26 mmol/L (22-30) 05/24/21 05:19 Anion Gap 12 mmol/L 05/24/21 05:19 BUN 15 mg/dL (9-20) 05/24/21 05:19 Creatinine 0.7 mg/dL (0.8-1.3) L 05/24/21 05:19 Estimated GFR > 60 ml/min 05/24/21 05:19 BUN/Creatinine Ratio 21 % 05/24/21 05:19 Glucose 97 mg/dL (75-100) 05/24/21 05:19 POC Glucose 90 mg/dL (70-105) 05/24/21 00:32 Hemoglobin A1c 5.8 % (4-6) 05/24/21 05:19 Calcium 8.7 mg/dL (8.4-10.2) 05/24/21 05:19 Total Bilirubin 0.20 mg/dL (0.1-1.2) 05/24/21 05:19 Direct Bilirubin < 0.2 mg/dL (0-0.2) 05/22/21 15:43 Indirect Bilirubin 0.0 mg/dL 05/22/21 15:43 AST 17 units/L (5-40) 05/24/21 05:19 ALT 14 units/L (7-56) 05/24/21 05:19 Alkaline Phosphatase 91 units/L (35-129) 05/24/21 05:19 Total Protein 6.9 g/dL (6.3-8.2) 05/24/21 05:19 Albumin 3.7 g/dL (3.9-5) L 05/24/21 05:19 Albumin/Globulin Ratio 1.2 % 05/24/21 05:19 Triglycerides 165 mg/dL (2-149) H 05/24/21 05:19 Cholesterol 182 mg/dL (50-199) 05/24/21 05:19 LDL Cholesterol Direct 96 mg/dL (50-130) 05/24/21 05:19 HDL Cholesterol 42 mg/dL (40-59) 05/24/21 05:19 Cholesterol/HDL Ratio 4.33 % 05/24/21 05:19 TSH 0.380 mlU/mL (0.270-4.200) 05/24/21 05:19 Salicylates < 0.3 mg/dL (2.8-20.0) L 05/22/21 15:43 Urine Opiates Screen Presumptive negative 05/22/21 Unknown Urine Methadone Screen Presumptive negative 05/22/21 Unknown Acetaminophen 5.0 ug/mL (10.0-30.0) L 05/22/21 15:43 Ur Barbiturates Screen Presumptive negative 05/22/21 Unknown Ur Phencyclidine Scrn Presumptive negative 05/22/21 Unknown Ur Amphetamines Screen Presumptive negative 05/22/21 Unknown U Benzodiazepines Scrn Presumptive negative 05/22/21 Unknown Urine Cocaine Screen Presumptive negative 05/22/21 Unknown U Marijuana (THC) Screen Presumptive negative 05/22/21 Unknown Drugs of Abuse Note Disclamer 05/22/21 Unknown Plasma/Serum Alcohol < 0.01 % (0-0.07) 05/22/21 18:46 Coronavirus (PCR) Negative (Negative) 05/23/21 09:44 Last Vital Signs Temp 98.6 F 05/24/21 00:50 Pulse 73 05/24/21 00:50 Resp 18 05/24/21 00:51 BP 125/85 05/24/21 00:50 Pulse Ox 98 05/24/21 00:17 Physical Examination - Constitutional Vitals: Vital Signs Temp Pulse Resp BP Pulse Ox 98.6 F 73 18 125/85 98 05/24/21 00:50 05/24/21 00:50 05/24/21 00:51 05/24/21 00:50 05/24/21 00:17 Temperature -Last 24 Hours Temperature 98.6 F Temperature 98.6 F Temperature 98.4 F Mental Status Exam - Vital signs Last Vital Signs Temp 98.6 F 05/24/21 00:50 Pulse 73 05/24/21 00:50 Resp 18 05/24/21 00:51 BP 125/85 05/24/21 00:50 Pulse Ox 98 05/24/21 00:17 Physician Certification - Certification Statement Physician Certification Statement: This is an acknowledgement statement that DAVID Tyra BURGERGUZMÁN is a 45 year old M who requires inpatient psychiatric admission for treatment which could reasonably be expected to improve the patient's condition for Estimated period of time patient will need to remain in the hospital: [ ] Plan for post-hospital care: [ ]
--- NOTE | 2021-05-24 10:36 | Consultation ---
History of Present Illness - Reason for Consult Consult date: 05/24/21 Requesting physician: GISSEL MOY - History of Present Illness Per psychiatry note: David Dixon is a 45y/o male patient I seen today. I first rounded on the patient in the ER. The patient endorses SI with a plan to run into traffic. The patient also states he is seeing white and black dots and hearing voices telling him to kill himself. He appears anxious. He is fidgety and his face is tense. He says he does not sleep well at night. The patient denies any illicit drug use or alcohol. He says he smokes a ppd of cigarets daily. Saw and evaluated patient today. Patient states that he has no acute complaints other than pain in his hip. He was requesting pain medication. He denies any headache, nausea, vomiting, diarrhea, chest pain, shortness of breath, abdominal pain, change in bowel habits. He denies a prior history of cardiac disease or renal disease. He does have a history of hypertension and asthma. He states that the asthma is well controlled. He denies using any medications for his chronic conditions. PMHx: Hypertension Asthma PSHx: Hip surgery complicated with postoperative infection. FHx: Reviewed noncontributory SHx: Tobacco use-admits 1 pack/day use ETOH Use-denies Recreational Drug Use-denies Living situationlives in a prison Medications and Allergies Allergies Allergy/AdvReac Type Severity Reaction Status Date / Time No Known Allergies Allergy Verified 04/15/21 20:33 Home Medications Medication Instructions Recorded Confirmed Last Taken Type Nicotine [Habitrol] 21 mg TD DAILY 04/15/21 05/24/21 04/15/21 11:00 History Sertraline [Zoloft] 25 mg PO QDAY 04/15/21 05/23/21 Unknown History risperiDONE [RisperDAL] 0.5 mg PO BID 04/15/21 05/23/21 04/15/21 16:00 History OLANZapine [Zyprexa] 15 mg PO HS 04/16/21 05/24/21 Unknown History amLODIPine 5 mg PO DAILY 04/16/21 05/24/21 Unknown History Gabapentin 300 mg PO Q8HR 30 Days #60 capsule 04/20/21 05/23/21 Unknown Rx Ibuprofen [Motrin 800 MG tab] 800 mg PO Q8H PRN tablet 04/20/21 05/23/21 Unknown Rx OLANzapine [ZyPREXA] 15 mg PO QHS 30 Days #30 tablet 04/20/21 05/23/21 Unknown Rx Sertraline [Zoloft] 100 mg PO QDAY 30 Days #30 tablet 04/20/21 05/23/21 Unknown Rx amLODIPine 5 mg PO DAILY tablet 04/20/21 05/23/21 Unknown Rx hydrOXYzine PAMOATE [Vistaril] 25 mg PO Q6H PRN 30 Days #60 04/20/21 05/23/21 Unknown Rx capsule Active Meds: Active Medications Gabapentin (Gabapentin 300 Mg Cap) 300 mg PO Q8HR [facility] Last Admin: 05/24/21 06:30 Dose: 300 mg Documented by: Hydroxyzine Pamoate (Hydroxyzine Pamoate 25 Mg Cap) 25 mg PO BID PRN PRN Reason: Anxiety Last Admin: 05/23/21 13:00 Dose: 25 mg Documented by: Ibuprofen (Ibuprofen 800 Mg Tab) 800 mg PO Q8H PRN PRN Reason: Pain, Moderate (4-6) Last Admin: 05/24/21 00:51 Dose: 800 mg Documented by: Nicotine (Nicotine 21 Mg/24 Hr Patch) 21 mg TD QDAY [facility] Olanzapine (Olanzapine 7.5 Mg Tab) 7.5 mg PO QDAY [facility] Sertraline HCl (Sertraline 50 Mg Tab) 50 mg PO QDAY [facility] Trazodone HCl (Trazodone 50 Mg Tab) 50 mg PO QHS [facility] Exam - Physical Exam Narrative exam: Physical Exam: VITAL SIGNS: Reviewed. GENERAL: The patient appears normally developed, Vital signs as documented. HEAD: No signs of head trauma. EYES: Pupils are equal. Extraocular motions intact. EARS: Hearing grossly intact. MOUTH: Oropharynx is normal. NECK: No adenopathy, no JVD. CHEST: Chest with clear breath sounds bilaterally. No wheezes, rales, or rhonchi. CARDIAC: Regular rate and rhythm. S1 and S2, without murmurs, gallops, or rubs. VASCULAR: No Edema. Peripheral pulses normal and equal in all extremities. ABDOMEN: Soft, non tender and non distended. No rebound or guarding, and no masses palpated. Bowel Sounds normal. MUSCULOSKELETAL: Good range of motion of all major joints. Extremities without clubbing, cyanosis or edema. NEUROLOGIC EXAM: Alert although orientation could not be verified as patient withdrawn no focal sensory or strength deficits. PSYCHIATRIC: Mood normal. SKIN: detail exam as documented in skin assessment - Constitutional Vitals: Temp Pulse Resp BP Pulse Ox 98.6 F 73 18 125/85 98 05/24/21 00:50 05/24/21 00:50 05/24/21 00:51 05/24/21 00:50 05/24/21 00:17 Results - Labs CBC & Chem 7: 05/24/21 05:19 05/24/21 05:19 Labs: Abnormal lab results 05/24/21 05/24/21 Range/Units 05:19 05:19 [place] % (Auto) 8.1 H (0.0-7.3) % Creatinine 0.7 L (0.8-1.3) mg/dL Albumin 3.7 L (3.9-5) g/dL Triglycerides 165 H (2-149) mg/dL Assessment and Plan Assessment 1. Suicidal ideation 2. essential hypertension 3. Asthma 4. Chronic hip pain from prior hip surgery Plan Continue supportive care -norvasc 5 mg po daily -as needed hydralazine on OCT - ibuprofen/gabapentin on OCT for hip pain - prn albuterol added to OCT Pepcid 20 mg po daily for GI PPx Continue appropriate psychiatric medications per psych team -Recommend intermittent monitoring of QTC Internal medicine will follow along as needed. - Patient Problems (1) Suicidal ideation Current Visit: Yes Status: Acute (2) Asthma Current Visit: Yes Status: Acute (3) Essential (primary) hypertension Current Visit: Yes Status: Acute (4) Hip pain, chronic Current Visit: Yes Status: Acute
[2021-05-24] MEDS: SERTRALINE 50 MG TAB PO SCH (10:54)
[2021-05-24] MEDS: NICOTINE 21 MG/24 HR PATCH TD SCH (10:54)
[2021-05-24] MEDS: hydrOXYzine PAMOATE 25 MG CAP PO PRN ×2 (10:55→16:50)
[2021-05-24] MEDS ORDERED: hydrALAZINE 20 MG/1 ML INJ IV PRN (15:08)
[2021-05-24] MEDS ORDERED: ALBUTEROL 2.5 MG/3 ML NEBU IH PRN (15:09)
[2021-05-24] MEDS: FAMOTIDINE 20 MG TAB PO SCH (16:50)
[2021-05-24] MEDS: amLODIPine 5 MG TAB PO SCH (16:53)
[2021-05-24] MEDS: traZODone 50 MG TAB PO SCH (22:21)
[2021-05-25] MEDS: GABAPENTIN 300 MG CAP PO SCH ×3 (05:29→21:34)
--- NOTE | 2021-05-25 09:16 | Progress Note ---
Subjective Date of service: 05/25/21 Subjective Comment: The patient was seen today. He is lying down in bed. He says he's not doing too good. The patient says he is depressed and suicidal. He says voices are telling him to harm himself. He denies having a plan to harm himself. REVIEW OF SYSTEMS Constitutional: Negative for weight loss ENT: Negative for stridor Respiratory: Negative for cough or hemoptysis All other systems reviewed and are negative MENTAL STATUS EXAMINATION General Appearance and Behavior: Age appropriate, good hygiene, wearing appropriate clothes, calm and cooperative polite with questioning. Cooperation: engaged Psychomotor Behavior: Psychomotor normal Mood: depressed Affect and affective range: congruent with stated mood Thought Process: goal directed Thought Content: Suicidal Speech: Normal volume, Regular rate and rhythm, Suicidal Ideation: Yes Homicidal Ideation: Denies Hallucinations: Auditory and visual Delusions: None elicited Impulse Control: Questionable Insight and Judgment: Limited Memory: Limited Attention: attentive Orientation: a/o Assessment and Plan (1)Schizophrenia Treatment Plan Patient admitted for inpatient psychiatric evaluation, medication adjustment and close monitoring The patient's behavior, mood, sleep and appetite will be closely monitored. Patient enrolled in individual and group therapeutic sessions and encouraged to attend. Patient provided with a safe and structured environment. Patient's physical health needs will be addressed by the Hospitalist. Hospitalist Consulted Labs including CBC, CMP, Lipid profile and Hemoglobin A1C levels ordered for baseline reference Social Assessment will be completed and the Commercial Lines Underwriter will work with patient and family to ensure a suitable and safe disposition Medication adjustment will be made as clinically indicated Increased Olanzapine 10mg po daily Continue Trarzodone 50mg po daily Continue Zoloft 50mg po daily Nicotine patch 21mg daily Usual Wellness Voodoo/Preservation: - Start Trazodone 50 mg po QHS & 50 mg po QHS PRN between 10 PM & 2 AM for insomnia - Start Melatonin 5 mg po QHS to promote circadian rhythm The patient agreed on the treatment plan, understood the risk, benefit, alternative treatment, potential consequence of no treatment, and gave informed consent. Estimated days: 5 Post hospital care: primary care provider, psychiatric provider Case staffed with Dr. Renteria Medications and Allergies Allergies Allergy/AdvReac Type Severity Reaction Status Date / Time No Known Allergies Allergy Verified 04/15/21 20:33 Home Medications Medication Instructions Recorded Confirmed Last Taken Type Nicotine [Habitrol] 21 mg TD DAILY 04/15/21 05/24/21 04/15/21 11:00 History Sertraline [Zoloft] 25 mg PO QDAY 04/15/21 05/23/21 Unknown History risperiDONE [RisperDAL] 0.5 mg PO BID 04/15/21 05/23/21 04/15/21 16:00 History OLANZapine [Zyprexa] 15 mg PO HS 04/16/21 05/24/21 Unknown History amLODIPine 5 mg PO DAILY 04/16/21 05/24/21 Unknown History Gabapentin 300 mg PO Q8HR 30 Days #60 capsule 04/20/21 05/23/21 Unknown Rx Ibuprofen [Motrin 800 MG tab] 800 mg PO Q8H PRN tablet 04/20/21 05/23/21 Unknown Rx OLANzapine [ZyPREXA] 15 mg PO QHS 30 Days #30 tablet 04/20/21 05/23/21 Unknown Rx Sertraline [Zoloft] 100 mg PO QDAY 30 Days #30 tablet 04/20/21 05/23/21 Unknown Rx amLODIPine 5 mg PO DAILY tablet 04/20/21 05/23/21 Unknown Rx hydrOXYzine PAMOATE [Vistaril] 25 mg PO Q6H PRN 30 Days #60 04/20/21 05/23/21 Unknown Rx capsule Active Meds: Active Medications Albuterol (Albuterol 2.5 Mg/3 Ml Nebu) 2.5 mg IH Q4HRT PRN PRN Reason: Shortness Of Breath Amlodipine Besylate (Amlodipine 5 Mg Tab) 5 mg PO DAILY [facility] Last Admin: 05/24/21 16:53 Dose: Not Given Documented by: Famotidine (Famotidine 20 Mg Tab) 20 mg PO QDAY [facility] Last Admin: 05/24/21 16:50 Dose: 20 mg Documented by: Gabapentin (Gabapentin 300 Mg Cap) 300 mg PO Q8HR [facility] Last Admin: 05/25/21 05:29 Dose: 300 mg Documented by: Hydralazine HCl (Hydralazine 20 Mg/1 Ml Inj) 10 mg IV Q4HR PRN PRN Reason: sbp > 160 Hydroxyzine Pamoate (Hydroxyzine Pamoate 25 Mg Cap) 25 mg PO BID PRN PRN Reason: Anxiety Last Admin: 05/24/21 16:50 Dose: 25 mg Documented by: Ibuprofen (Ibuprofen 800 Mg Tab) 800 mg PO Q8H PRN PRN Reason: Pain, Moderate (4-6) Last Admin: 05/24/21 10:55 Dose: 800 mg Documented by: Nicotine (Nicotine 21 Mg/24 Hr Patch) 21 mg TD QDAY [facility] Last Admin: 05/24/21 10:54 Dose: 21 mg Documented by: Olanzapine (Olanzapine 7.5 Mg Tab) 7.5 mg PO QDAY [facility] Last Admin: 05/24/21 10:54 Dose: 7.5 mg Documented by: Sertraline HCl (Sertraline 50 Mg Tab) 50 mg PO QDAY [facility] Last Admin: 05/24/21 10:54 Dose: 50 mg Documented by: Trazodone HCl (Trazodone 50 Mg Tab) 50 mg PO QHS [facility] Last Admin: 05/24/21 22:21 Dose: 50 mg Documented by: Results - Results Labs/Vitals: Laboratory Last Values WBC 6.2 K/mm3 (4.5-11.0) 05/24/21 05:19 RBC 4.98 M/mm3 (3.65-5.03) 05/24/21 05:19 Hgb 14.9 gm/dl (11.8-15.2) 05/24/21 05:19 Hct 43.4 % (35.5-45.6) 05/24/21 05:19 MCV 87 fl (84-94) 05/24/21 05:19 MCH 30 pg (28-32) 05/24/21 05:19 MCHC 34 % (32-34) 05/24/21 05:19 RDW 14.2 % (13.2-15.2) 05/24/21 05:19 Plt Count 221 K/mm3 (140-440) 05/24/21 05:19 Lymph % (Auto) 34.3 % (13.4-35.0) 05/24/21 05:19 [place] % (Auto) 8.1 % (0.0-7.3) H 05/24/21 05:19 Eos % (Auto) 2.6 % (0.0-4.3) 05/24/21 05:19 Baso % (Auto) 0.9 % (0.0-1.8) 05/24/21 05:19 Lymph # (Auto) 2.1 K/mm3 (1.2-5.4) 05/24/21 05:19 [place] # (Auto) 0.5 K/mm3 (0.0-0.8) 05/24/21 05:19 Eos # (Auto) 0.2 K/mm3 (0.0-0.4) 05/24/21 05:19 Baso # (Auto) 0.1 K/mm3 (0.0-0.1) 05/24/21 05:19 Seg Neutrophils % 54.1 % (40.0-70.0) 05/24/21 05:19 Seg Neutrophils # 3.3 K/mm3 (1.8-7.7) 05/24/21 05:19 Sodium 140 mmol/L (137-145) 05/24/21 05:19 Potassium 3.7 mmol/L (3.6-5.0) 05/24/21 05:19 Chloride 106.2 mmol/L (98-107) 05/24/21 05:19 Carbon Dioxide 26 mmol/L (22-30) 05/24/21 05:19 Anion Gap 12 mmol/L 05/24/21 05:19 BUN 15 mg/dL (9-20) 05/24/21 05:19 Creatinine 0.7 mg/dL (0.8-1.3) L 05/24/21 05:19 Estimated GFR > 60 ml/min 05/24/21 05:19 BUN/Creatinine Ratio 21 % 05/24/21 05:19 Glucose 97 mg/dL (75-100) 05/24/21 05:19 POC Glucose 90 mg/dL (70-105) 05/24/21 00:32 Hemoglobin A1c 5.8 % (4-6) 05/24/21 05:19 Calcium 8.7 mg/dL (8.4-10.2) 05/24/21 05:19 Total Bilirubin 0.20 mg/dL (0.1-1.2) 05/24/21 05:19 Direct Bilirubin < 0.2 mg/dL (0-0.2) 05/22/21 15:43 Indirect Bilirubin 0.0 mg/dL 05/22/21 15:43 AST 17 units/L (5-40) 05/24/21 05:19 ALT 14 units/L (7-56) 05/24/21 05:19 Alkaline Phosphatase 91 units/L (35-129) 05/24/21 05:19 Total Protein 6.9 g/dL (6.3-8.2) 05/24/21 05:19 Albumin 3.7 g/dL (3.9-5) L 05/24/21 05:19 Albumin/Globulin Ratio 1.2 % 05/24/21 05:19 Triglycerides 165 mg/dL (2-149) H 05/24/21 05:19 Cholesterol 182 mg/dL (50-199) 05/24/21 05:19 LDL Cholesterol Direct 96 mg/dL (50-130) 05/24/21 05:19 HDL Cholesterol 42 mg/dL (40-59) 05/24/21 05:19 Cholesterol/HDL Ratio 4.33 % 05/24/21 05:19 TSH 0.380 mlU/mL (0.270-4.200) 05/24/21 05:19 Salicylates < 0.3 mg/dL (2.8-20.0) L 05/22/21 15:43 Urine Opiates Screen Presumptive negative 05/22/21 Unknown Urine Methadone Screen Presumptive negative 05/22/21 Unknown Acetaminophen 5.0 ug/mL (10.0-30.0) L 05/22/21 15:43 Ur Barbiturates Screen Presumptive negative 05/22/21 Unknown Ur Phencyclidine Scrn Presumptive negative 05/22/21 Unknown Ur Amphetamines Screen Presumptive negative 05/22/21 Unknown U Benzodiazepines Scrn Presumptive negative 05/22/21 Unknown Urine Cocaine Screen Presumptive negative 05/22/21 Unknown U Marijuana (THC) Screen Presumptive negative 05/22/21 Unknown Drugs of Abuse Note Disclamer 05/22/21 Unknown Plasma/Serum Alcohol < 0.01 % (0-0.07) 05/22/21 18:46 Coronavirus (PCR) Negative (Negative) 05/23/21 09:44 Last Vital Signs Temp 98.4 F 05/24/21 09:21 Pulse 62 05/24/21 16:53 Resp 16 05/24/21 10:55 BP 108/54 05/24/21 16:53 Pulse Ox 95 05/24/21 09:21
[2021-05-25] MEDS: SERTRALINE 50 MG TAB PO SCH (10:17)
[2021-05-25] MEDS: NICOTINE 21 MG/24 HR PATCH TD SCH (10:17)
[2021-05-25] MEDS: FAMOTIDINE 20 MG TAB PO SCH (10:17)
[2021-05-25] MEDS: amLODIPine 5 MG TAB PO SCH (10:18)
[2021-05-25] MEDS: IBUPROFEN 800 MG TAB PO PRN ×2 (10:37→21:38)
[2021-05-25] MEDS: hydrOXYzine PAMOATE 25 MG CAP PO PRN ×2 (10:37→17:21)
[2021-05-25] MEDS: traZODone 50 MG TAB PO SCH (21:34)
[2021-05-26] MEDS: GABAPENTIN 300 MG CAP PO SCH ×3 (05:36→21:24)
[2021-05-26] MEDS: NICOTINE 21 MG/24 HR PATCH TD SCH (09:29)
[2021-05-26] MEDS: FAMOTIDINE 20 MG TAB PO SCH (09:29)
[2021-05-26] MEDS: SERTRALINE 50 MG TAB PO SCH (09:29)
[2021-05-26] MEDS: amLODIPine 5 MG TAB PO SCH (09:30)
[2021-05-26] MEDS: IBUPROFEN 800 MG TAB PO PRN ×2 (09:37→20:51)
[2021-05-26] MEDS: hydrOXYzine PAMOATE 25 MG CAP PO PRN ×2 (09:37→17:11)
--- NOTE | 2021-05-26 10:30 | Progress Note ---
Subjective Date of service: 05/26/21 Subjective Comment: The patient was seen today. He is lying down in bed. He says he's not doing good because he's not getting his full dose of zoloft. He says he takes 200mg daily. He still endorses SI. He denies hallucinations. REVIEW OF SYSTEMS Constitutional: Negative for weight loss ENT: Negative for stridor Respiratory: Negative for cough or hemoptysis All other systems reviewed and are negative MENTAL STATUS EXAMINATION General Appearance and Behavior: Age appropriate, good hygiene, wearing appropriate clothes, calm and cooperative polite with questioning. Cooperation: engaged Psychomotor Behavior: Psychomotor normal Mood: depressed Affect and affective range: congruent with stated mood Thought Process: goal directed Thought Content: Suicidal Speech: Normal volume, Regular rate and rhythm, Suicidal Ideation: Yes Homicidal Ideation: Denies Hallucinations: Auditory and visual Delusions: None elicited Impulse Control: Questionable Insight and Judgment: Limited Memory: Limited Attention: attentive Orientation: a/o Assessment and Plan (1)Schizophrenia Treatment Plan Patient admitted for inpatient psychiatric evaluation, medication adjustment and close monitoring The patient's behavior, mood, sleep and appetite will be closely monitored. Patient enrolled in individual and group therapeutic sessions and encouraged to attend. Patient provided with a safe and structured environment. Patient's physical health needs will be addressed by the Hospitalist. Hospitalist Consulted Labs including CBC, CMP, Lipid profile and Hemoglobin A1C levels ordered for baseline reference Social Assessment will be completed and the Disease Intervention Specialist will work with patient and family to ensure a suitable and safe disposition Medication adjustment will be made as clinically indicated Increased Olanzapine 10mg po daily yesterday Continue Trarzodone 50mg po daily Increase Zoloft 200mg po daily Nicotine patch 21mg daily Usual Wellness [employer]/Preservation: - Start Trazodone 50 mg po QHS & 50 mg po QHS PRN between 10 PM & 2 AM for insomnia - Start Melatonin 5 mg po QHS to promote circadian rhythm The patient agreed on the treatment plan, understood the risk, benefit, alternative treatment, potential consequence of no treatment, and gave informed consent. Estimated days: 2 Post hospital care: primary care provider, psychiatric provider Case staffed with Dr. Renteria Medications and Allergies Allergies Allergy/AdvReac Type Severity Reaction Status Date / Time No Known Allergies Allergy Verified 04/15/21 20:33 Home Medications Medication Instructions Recorded Confirmed Last Taken Type Nicotine [Habitrol] 21 mg TD DAILY 04/15/21 05/24/21 04/15/21 11:00 History Sertraline [Zoloft] 25 mg PO QDAY 04/15/21 05/23/21 Unknown History risperiDONE [RisperDAL] 0.5 mg PO BID 04/15/21 05/23/21 04/15/21 16:00 History OLANZapine [Zyprexa] 15 mg PO HS 04/16/21 05/24/21 Unknown History amLODIPine 5 mg PO DAILY 04/16/21 05/24/21 Unknown History Gabapentin 300 mg PO Q8HR 30 Days #60 capsule 04/20/21 05/23/21 Unknown Rx Ibuprofen [Motrin 800 MG tab] 800 mg PO Q8H PRN tablet 04/20/21 05/23/21 Unknown Rx OLANzapine [ZyPREXA] 15 mg PO QHS 30 Days #30 tablet 04/20/21 05/23/21 Unknown Rx Sertraline [Zoloft] 100 mg PO QDAY 30 Days #30 tablet 04/20/21 05/23/21 Unknown Rx amLODIPine 5 mg PO DAILY tablet 04/20/21 05/23/21 Unknown Rx hydrOXYzine PAMOATE [Vistaril] 25 mg PO Q6H PRN 30 Days #60 04/20/21 05/23/21 Unknown Rx capsule Active Meds: Active Medications Albuterol (Albuterol 2.5 Mg/3 Ml Nebu) 2.5 mg IH Q4HRT PRN PRN Reason: Shortness Of Breath Amlodipine Besylate (Amlodipine 5 Mg Tab) 5 mg PO DAILY [facility] Last Admin: 05/26/21 09:30 Dose: 5 mg Documented by: Famotidine (Famotidine 20 Mg Tab) 20 mg PO QDAY [facility] Last Admin: 05/26/21 09:29 Dose: 20 mg Documented by: Gabapentin (Gabapentin 300 Mg Cap) 300 mg PO Q8HR [facility] Last Admin: 05/26/21 05:36 Dose: 300 mg Documented by: Hydralazine HCl (Hydralazine 20 Mg/1 Ml Inj) 10 mg IV Q4HR PRN PRN Reason: sbp > 160 Hydroxyzine Pamoate (Hydroxyzine Pamoate 25 Mg Cap) 25 mg PO BID PRN PRN Reason: Anxiety Last Admin: 05/26/21 09:37 Dose: 25 mg Documented by: Ibuprofen (Ibuprofen 800 Mg Tab) 800 mg PO Q8H PRN PRN Reason: Pain, Moderate (4-6) Last Admin: 05/26/21 09:37 Dose: 800 mg Documented by: Nicotine (Nicotine 21 Mg/24 Hr Patch) 21 mg TD QDAY [facility] Last Admin: 05/26/21 09:29 Dose: 21 mg Documented by: Olanzapine (Olanzapine 10 Mg Tab) 10 mg PO QDAY [facility] Last Admin: 05/26/21 09:29 Dose: 10 mg Documented by: Sertraline HCl (Sertraline 50 Mg Tab) 50 mg PO QDAY [facility] Last Admin: 05/26/21 09:29 Dose: 50 mg Documented by: Trazodone HCl (Trazodone 50 Mg Tab) 50 mg PO QHS [facility] Last Admin: 05/25/21 21:34 Dose: 50 mg Documented by: Results - Results Labs/Vitals: Laboratory Last Values WBC 6.2 K/mm3 (4.5-11.0) 05/24/21 05:19 RBC 4.98 M/mm3 (3.65-5.03) 05/24/21 05:19 Hgb 14.9 gm/dl (11.8-15.2) 05/24/21 05:19 Hct 43.4 % (35.5-45.6) 05/24/21 05:19 MCV 87 fl (84-94) 05/24/21 05:19 MCH 30 pg (28-32) 05/24/21 05:19 MCHC 34 % (32-34) 05/24/21 05:19 RDW 14.2 % (13.2-15.2) 05/24/21 05:19 Plt Count 221 K/mm3 (140-440) 05/24/21 05:19 Lymph % (Auto) 34.3 % (13.4-35.0) 05/24/21 05:19 [place] % (Auto) 8.1 % (0.0-7.3) H 05/24/21 05:19 Eos % (Auto) 2.6 % (0.0-4.3) 05/24/21 05:19 Baso % (Auto) 0.9 % (0.0-1.8) 05/24/21 05:19 Lymph # (Auto) 2.1 K/mm3 (1.2-5.4) 05/24/21 05:19 [place] # (Auto) 0.5 K/mm3 (0.0-0.8) 05/24/21 05:19 Eos # (Auto) 0.2 K/mm3 (0.0-0.4) 05/24/21 05:19 Baso # (Auto) 0.1 K/mm3 (0.0-0.1) 05/24/21 05:19 Seg Neutrophils % 54.1 % (40.0-70.0) 05/24/21 05:19 Seg Neutrophils # 3.3 K/mm3 (1.8-7.7) 05/24/21 05:19 Sodium 140 mmol/L (137-145) 05/24/21 05:19 Potassium 3.7 mmol/L (3.6-5.0) 05/24/21 05:19 Chloride 106.2 mmol/L (98-107) 05/24/21 05:19 Carbon Dioxide 26 mmol/L (22-30) 05/24/21 05:19 Anion Gap 12 mmol/L 05/24/21 05:19 BUN 15 mg/dL (9-20) 05/24/21 05:19 Creatinine 0.7 mg/dL (0.8-1.3) L 05/24/21 05:19 Estimated GFR > 60 ml/min 05/24/21 05:19 BUN/Creatinine Ratio 21 % 05/24/21 05:19 Glucose 97 mg/dL (75-100) 05/24/21 05:19 POC Glucose 90 mg/dL (70-105) 05/24/21 00:32 Hemoglobin A1c 5.8 % (4-6) 05/24/21 05:19 Calcium 8.7 mg/dL (8.4-10.2) 05/24/21 05:19 Total Bilirubin 0.20 mg/dL (0.1-1.2) 05/24/21 05:19 Direct Bilirubin < 0.2 mg/dL (0-0.2) 05/22/21 15:43 Indirect Bilirubin 0.0 mg/dL 05/22/21 15:43 AST 17 units/L (5-40) 05/24/21 05:19 ALT 14 units/L (7-56) 05/24/21 05:19 Alkaline Phosphatase 91 units/L (35-129) 05/24/21 05:19 Total Protein 6.9 g/dL (6.3-8.2) 05/24/21 05:19 Albumin 3.7 g/dL (3.9-5) L 05/24/21 05:19 Albumin/Globulin Ratio 1.2 % 05/24/21 05:19 Triglycerides 165 mg/dL (2-149) H 05/24/21 05:19 Cholesterol 182 mg/dL (50-199) 05/24/21 05:19 LDL Cholesterol Direct 96 mg/dL (50-130) 05/24/21 05:19 HDL Cholesterol 42 mg/dL (40-59) 05/24/21 05:19 Cholesterol/HDL Ratio 4.33 % 05/24/21 05:19 TSH 0.380 mlU/mL (0.270-4.200) 05/24/21 05:19 Salicylates < 0.3 mg/dL (2.8-20.0) L 05/22/21 15:43 Urine Opiates Screen Presumptive negative 05/22/21 Unknown Urine Methadone Screen Presumptive negative 05/22/21 Unknown Acetaminophen 5.0 ug/mL (10.0-30.0) L 05/22/21 15:43 Ur Barbiturates Screen Presumptive negative 05/22/21 Unknown Ur Phencyclidine Scrn Presumptive negative 05/22/21 Unknown Ur Amphetamines Screen Presumptive negative 05/22/21 Unknown U Benzodiazepines Scrn Presumptive negative 05/22/21 Unknown Urine Cocaine Screen Presumptive negative 05/22/21 Unknown U Marijuana (THC) Screen Presumptive negative 05/22/21 Unknown Drugs of Abuse Note Disclamer 05/22/21 Unknown Plasma/Serum Alcohol < 0.01 % (0-0.07) 05/22/21 18:46 Coronavirus (PCR) Negative (Negative) 05/23/21 09:44 Last Vital Signs Temp 98.0 F 05/26/21 07:58 Pulse 65 05/26/21 07:58 Resp 18 05/26/21 07:58 BP 109/74 05/26/21 07:58 Pulse Ox 98 05/26/21 07:58
[2021-05-26] MEDS ORDERED: SERTRALINE 100 MG TAB PO SCH ×2 (11:00)
[2021-05-26] MEDS ORDERED: SERTRALINE 50 MG TAB PO SCH (11:00)
[2021-05-26] MEDS: traZODone 50 MG TAB PO SCH (21:24)
[2021-05-27] MEDS: GABAPENTIN 300 MG CAP PO SCH ×2 (05:16→14:03)
[2021-05-27 09:19] VITALS: BP 111/79
[2021-05-27] MEDS: hydrOXYzine PAMOATE 25 MG CAP PO PRN (09:20)
[2021-05-27] MEDS: amLODIPine 5 MG TAB PO SCH (09:20)
[2021-05-27] MEDS: FAMOTIDINE 20 MG TAB PO SCH (09:20)
[2021-05-27] MEDS: NICOTINE 21 MG/24 HR PATCH TD SCH (09:20)
[2021-05-27] MEDS: IBUPROFEN 800 MG TAB PO PRN (09:20)
--- NOTE | 2021-05-27 09:33 | Discharge Summary ---
Providers - Providers Date of Admission: 05/23/21 17:02 Date of discharge: 05/27/21 Attending physician: GISSEL MOY MD 05/23/21 22:37 Consult to Physician [CONS] Routine Comment: Consulting Provider: NELI MCFARLANE Physician Instructions: Reason For Exam: H AND P Primary care physician: SORORITY SUPERVISOR Hospitalization Reason for admission: depression, SI Admitting Diagnosis: F20.9 - SCHIZOPHRENIA, UNSPECIFIED Hospital course: The patient was provided inpatient psychiatric treatment with safe and supp ortive care, medication adjustment, adverse effect monitoring, medical evaluations, medical treatments, assessment and psycho-education. The patient's mood, cognition, behavior, moral support are improved and stabilized. St the time of discharge, the patient had no endangering behavior and no debilitating adverse effects. The patient agreed on potential consequences of no treatment and gave informed consent. 05/24 David Dixon is a 45y/o male patient I seen today. I first rounded on the patient in the ER. The patient endorses SI with a plan to run into traffic. The patient also states he is seeing white and black dots and hearing voices telling him to kill himself. He appears anxious. He is fidgety and his face is tense. He says he does not sleep well at night. The patient denies any illicit drug use or alcohol. He says he smokes a ppd of cigarets daily. 05/25 The patient was seen today. He is lying down in bed. He says he's not doing too good. The patient says he is depressed and suicidal. He says voices are telling him to harm himself. He denies having a plan to harm himself. 05/26 The patient was seen today. He is lying down in bed. He says he's not doing good because he's not getting his full dose of zoloft. He says he takes 200mg daily. He still endorses SI. He denies hallucinations. 05/27 The patient was seen today. He is lying in the dayroom. He says he is feeling better and denies hallucinations. When asked was he still feeling suicidal, the patient says "not right now, but I was a little last night." He says "I'm glad you restared the zoloft." Disposition: 01 HOME / SELF CARE / HOMELESS Time spent for discharge: 35 Allergies/Adverse Reactions: Allergies No Known Allergies Allergy (Verified 04/15/21 20:33) Vital Signs: Last Vital Signs Temp 98.6 F 05/27/21 07:23 Pulse 68 05/27/21 09:20 Resp 18 05/27/21 07:23 BP 111/79 05/27/21 09:20 Pulse Ox 96 05/27/21 07:23 Last Lab: Laboratory Last Values WBC 6.2 K/mm3 (4.5-11.0) 05/24/21 05:19 RBC 4.98 M/mm3 (3.65-5.03) 05/24/21 05:19 Hgb 14.9 gm/dl (11.8-15.2) 05/24/21 05:19 Hct 43.4 % (35.5-45.6) 05/24/21 05:19 MCV 87 fl (84-94) 05/24/21 05:19 MCH 30 pg (28-32) 05/24/21 05:19 MCHC 34 % (32-34) 05/24/21 05:19 RDW 14.2 % (13.2-15.2) 05/24/21 05:19 Plt Count 221 K/mm3 (140-440) 05/24/21 05:19 Lymph % (Auto) 34.3 % (13.4-35.0) 05/24/21 05:19 [place] % (Auto) 8.1 % (0.0-7.3) H 05/24/21 05:19 Eos % (Auto) 2.6 % (0.0-4.3) 05/24/21 05:19 Baso % (Auto) 0.9 % (0.0-1.8) 05/24/21 05:19 Lymph # (Auto) 2.1 K/mm3 (1.2-5.4) 05/24/21 05:19 [place] # (Auto) 0.5 K/mm3 (0.0-0.8) 05/24/21 05:19 Eos # (Auto) 0.2 K/mm3 (0.0-0.4) 05/24/21 05:19 Baso # (Auto) 0.1 K/mm3 (0.0-0.1) 05/24/21 05:19 Seg Neutrophils % 54.1 % (40.0-70.0) 05/24/21 05:19 Seg Neutrophils # 3.3 K/mm3 (1.8-7.7) 05/24/21 05:19 Sodium 140 mmol/L (137-145) 05/24/21 05:19 Potassium 3.7 mmol/L (3.6-5.0) 05/24/21 05:19 Chloride 106.2 mmol/L (98-107) 05/24/21 05:19 Carbon Dioxide 26 mmol/L (22-30) 05/24/21 05:19 Anion Gap 12 mmol/L 05/24/21 05:19 BUN 15 mg/dL (9-20) 05/24/21 05:19 Creatinine 0.7 mg/dL (0.8-1.3) L 05/24/21 05:19 Estimated GFR > 60 ml/min 05/24/21 05:19 BUN/Creatinine Ratio 21 % 05/24/21 05:19 Glucose 97 mg/dL (75-100) 05/24/21 05:19 POC Glucose 90 mg/dL (70-105) 05/24/21 00:32 Hemoglobin A1c 5.8 % (4-6) 05/24/21 05:19 Calcium 8.7 mg/dL (8.4-10.2) 05/24/21 05:19 Total Bilirubin 0.20 mg/dL (0.1-1.2) 05/24/21 05:19 Direct Bilirubin < 0.2 mg/dL (0-0.2) 05/22/21 15:43 Indirect Bilirubin 0.0 mg/dL 05/22/21 15:43 AST 17 units/L (5-40) 05/24/21 05:19 ALT 14 units/L (7-56) 05/24/21 05:19 Alkaline Phosphatase 91 units/L (35-129) 05/24/21 05:19 Total Protein 6.9 g/dL (6.3-8.2) 05/24/21 05:19 Albumin 3.7 g/dL (3.9-5) L 05/24/21 05:19 Albumin/Globulin Ratio 1.2 % 05/24/21 05:19 Triglycerides 165 mg/dL (2-149) H 05/24/21 05:19 Cholesterol 182 mg/dL (50-199) 05/24/21 05:19 LDL Cholesterol Direct 96 mg/dL (50-130) 05/24/21 05:19 HDL Cholesterol 42 mg/dL (40-59) 05/24/21 05:19 Cholesterol/HDL Ratio 4.33 % 05/24/21 05:19 TSH 0.380 mlU/mL (0.270-4.200) 05/24/21 05:19 Salicylates < 0.3 mg/dL (2.8-20.0) L 05/22/21 15:43 Urine Opiates Screen Presumptive negative 05/22/21 Unknown Urine Methadone Screen Presumptive negative 05/22/21 Unknown Acetaminophen 5.0 ug/mL (10.0-30.0) L 05/22/21 15:43 Ur Barbiturates Screen Presumptive negative 05/22/21 Unknown Ur Phencyclidine Scrn Presumptive negative 05/22/21 Unknown Ur Amphetamines Screen Presumptive negative 05/22/21 Unknown U Benzodiazepines Scrn Presumptive negative 05/22/21 Unknown Urine Cocaine Screen Presumptive negative 05/22/21 Unknown U Marijuana (THC) Screen Presumptive negative 05/22/21 Unknown Drugs of Abuse Note Disclamer 05/22/21 Unknown Plasma/Serum Alcohol < 0.01 % (0-0.07) 05/22/21 18:46 Coronavirus (PCR) Negative (Negative) 05/23/21 09:44 Core Measure Documentation - Palliative Care Palliative Care/ Comfort Measures: Not Applicable - Core Measures Any of the following diagnoses?: none Exam - Constitutional Vitals: Temp Pulse Resp BP Pulse Ox 98.6 F 68 18 111/79 96 05/27/21 07:23 05/27/21 09:20 05/27/21 07:23 05/27/21 09:20 05/27/21 07:23 General appearance: Present: no acute distress - EENT Eyes: Present: PERRL, EOM intact ENT: hearing intact, clear oral mucosa - Neck Neck: Present: supple, normal ROM - Respiratory Respiratory effort: normal Plan Activity: advance as tolerated Weight Bearing Status: Weight Bear as Tolerated Care Plan Goals: Maintain good and stable mental health Plan of Treatment: The patient should be compliant with medications, not to use drugs, and not to drink alcohol. The patient understands that if suicidal ideas, homicidal ideas or any endangering feeling arise, the patient should seek assistance including, but not limited to crisis hotline, and emergency room. Assessment: schizophrenia Follow up with: PRIMARY CARE, [Primary Care Provider] - 3-5 Days Prescriptions: traZODone [Desyrel] 50 mg PO QHS #30 tablet Nicotine [Habitrol] 21 mg TD QDAY #30 patch hydrOXYzine PAMOATE [Vistaril] 25 mg PO BID PRN #60 capsule PRN Reason: Anxiety Sertraline [Zoloft] 200 mg PO QDAY #60 tablet OLANzapine [Zyprexa] 10 mg PO QDAY #30 tablet
[2021-05-27] MEDS ORDERED: SERTRALINE 100 MG TAB PO SCH (10:00)
== END 2021-05-27 15:35 | disposition home or self-care (01) | DRG 885 ==
LOC: ED 13:20 → 5A 05-23 17:02
PROVIDERS: ADMIT Psychiatry & Neurology Psychiatry; ATTEND Psychiatry & Neurology Psychiatry
DX: F20.9 Schizophrenia, unspecified (principal); R45.851 Suicidal ideations; F17.200 Nicotine dependence, unspecified, uncomplicated
CPT/HCPCS: 36415; 80048; 80053; 80061; 80076; 80307; 80320; 82962; 83036; 84443; 85025; G0378; G0480; Q0177; U0003

== ENCOUNTER 2021-07-04 18:50 | Emergency (ER) | payer MEDICAID ==
[2021-07-04 19:12] VITALS: BP 133/80
--- NOTE | 2021-07-04 19:42 | Emergency Department Report ---
HPI - General Chief Complaint: Abdominal Pain Time Seen by Provider: 07/04/21 19:27 - HPI HPI: 45-year-old -Armenian male presents to the emergency department with a 3- day history of abdominal pain and diarrhea. He also complains of generalized yunior dy aches. He denies any fever, cough, shortness of breath, rash. He has a past medical history of hypertension and a psychiatric history of schizophrenia. He says that he has some loose stools that are large volume that occur about 2 or 3 times per day that he describes as the diarrhea. Currently his abdominal pain is 8 out of 10 in intensity. No known aggravating or alleviating factors. No recent travel or sick contacts at home. Patient has not taken anything for symptoms prior to presentation today. ED Past Medical Hx - Past Medical History Hx Congestive Heart Failure: No Hx Diabetes: No Hx Renal Disease: No Hx Arthritis: No Hx Seizures: No Hx Psychiatric Treatment: Yes Hx Asthma: No Hx COPD: No Hx Dementia: No - Surgical History Hx Cholecystectomy: No Hx Appendectomy: No - Social History Smoking Status: Current Every Day Smoker Substance Use Type: Prescribed - Medications Home Medications: Home Medications Medication Instructions Recorded Confirmed Last Taken Type amLODIPine 5 mg PO DAILY 04/16/21 05/24/21 Unknown History Gabapentin 300 mg PO Q8HR 30 Days #60 capsule 04/20/21 05/23/21 Unknown Rx Ibuprofen [Motrin 800 MG tab] 800 mg PO Q8H PRN tablet 04/20/21 05/23/21 Unknown Rx amLODIPine 5 mg PO DAILY tablet 04/20/21 05/23/21 Unknown Rx Nicotine [Habitrol] 21 mg TD QDAY #30 patch 05/27/21 Unknown Rx OLANzapine [Zyprexa] 10 mg PO QDAY #30 tablet 05/27/21 Unknown Rx Sertraline [Zoloft] 200 mg PO QDAY #60 tablet 05/27/21 Unknown Rx hydrOXYzine PAMOATE [Vistaril] 25 mg PO BID PRN #60 capsule 05/27/21 Unknown Rx traZODone [Desyrel] 50 mg PO QHS #30 tablet 05/27/21 Unknown Rx ED Review of Systems ROS: Stated complaint: ABDOMINAL PAIN Other details as noted in HPI Comment: All other systems reviewed and negative Constitutional: denies: chills, fever Eyes: denies: eye pain, vision change ENT: denies: ear pain, throat pain Respiratory: denies: cough, shortness of breath Cardiovascular: denies: chest pain, palpitations Gastrointestinal: abdominal pain, diarrhea. denies: nausea, vomiting Genitourinary: denies: dysuria, discharge Musculoskeletal: denies: back pain, arthralgia Skin: denies: rash, lesions Neurological: denies: headache, weakness Physical Exam - Physical Exam Vital Signs: Vital Signs 07/04/21 19:10 Temperature 98.1 F Pulse Rate 96 H Respiratory 15 Rate Blood Pressure 133/80 [Right] O2 Sat by Pulse 98 Oximetry Physical Exam: GENERAL: The patient is well-developed well-nourished. HENT: Normocephalic. Atraumatic. Patient has moist mucous membranes. EYES: Extraocular motions are intact. NECK: Supple. Trachea is midline. CHEST/LUNGS: Clear to auscultation. There is no respiratory distress noted. HEART/CARDIOVASCULAR: Regular. There is no tachycardia. There is no murmur. ABDOMEN: Abdomen is soft. Generalized abdominal tenderness to palpation. No guarding. Patient has normal bowel sounds. Obese habitus. SKIN: Skin is warm and dry. NEURO: The patient is awake, alert, and oriented. The patient is cooperative. The patient has no focal neurologic deficits. Normal speech. MUSCULOSKELETAL: There is no tenderness or deformity. There is no limitation range of motion. ED Course Vital Signs 07/04/21 19:10 Temperature 98.1 F Pulse Rate 96 H Respiratory 15 Rate Blood Pressure 133/80 [Right] O2 Sat by Pulse 98 Oximetry ED Medical Decision Making - Lab Data Result diagrams: 07/04/21 20:22 07/04/21 20:22 Lab Results 07/04/21 07/04/21 07/04/21 Range/Units 20:02 20:22 20:22 WBC 7.6 (4.5-11.0) K/mm3 RBC 4.57 (3.65-5.03) M/mm3 Hgb 14.9 (11.8-15.2) gm/dl Hct 44.0 (35.5-45.6) % MCV 96 H (84-94) fl MCH 33 H (28-32) pg MCHC 34 (32-34) % RDW 12.8 L (13.2-15.2) % Plt Count 274 (140-440) K/mm3 Lymph % (Auto) 26.0 (13.4-35.0) % [place] % (Auto) 8.5 H (0.0-7.3) % Eos % (Auto) 2.7 (0.0-4.3) % Baso % (Auto) 0.7 (0.0-1.8) % Lymph # (Auto) 2.0 (1.2-5.4) K/mm3 [place] # (Auto) 0.6 (0.0-0.8) K/mm3 Eos # (Auto) 0.2 (0.0-0.4) K/mm3 Baso # (Auto) 0.1 (0.0-0.1) K/mm3 Seg Neutrophils % 62.1 (40.0-70.0) % Seg Neutrophils # 4.7 (1.8-7.7) K/mm3 Sodium 136 L (137-145) mmol/L Potassium 4.4 (3.6-5.0) mmol/L Chloride 102.3 (98-107) mmol/L Carbon Dioxide 24 (22-30) mmol/L Anion Gap 14 mmol/L BUN 10 (9-20) mg/dL Creatinine 1.2 (0.8-1.3) mg/dL Estimated GFR > 60 ml/min BUN/Creatinine Ratio 8 % Glucose 96 (75-100) mg/dL Calcium 9.4 (8.4-10.2) mg/dL Total Bilirubin (0.1-1.2) mg/dL Direct Bilirubin (0-0.2) mg/dL Indirect Bilirubin mg/dL AST (5-40) units/L ALT (7-56) units/L Alkaline Phosphatase (35-129) units/L Total Protein (6.3-8.2) g/dL Albumin (3.9-5) g/dL Albumin/Globulin Ratio % Lipase 28 (13-60) units/L Urine Color Yellow (Yellow) Urine Turbidity Clear (Clear) Urine pH 6.0 (5.0-7.0) Ur Specific [place] 1.015 (1.003-1.030) Urine Protein <15 mg/dl (Negative) mg/dL Urine Glucose (UA) Negative (Negative) mg/dL Urine Ketones Negative (Negative) mg/dL Urine Blood Negative (Negative) Urine Nitrite Negative (Negative) Ur Reducing Substances Not Reportable Urine Bilirubin Negative (Negative) Urine Ictotest Not Reportable Urine Urobilinogen < 2.0 (<2.0) mg/dL Ur Leukocyte Esterase Negative (Negative) Urine WBC (Auto) 1.0 (0.0-6.0) /HPF Urine RBC (Auto) 2.0 (0.0-6.0) /HPF U Epithel Cells (Auto) < 1.0 (0-13.0) /HPF 07/04/21 Range/Units 20:22 WBC (4.5-11.0) K/mm3 RBC (3.65-5.03) M/mm3 Hgb (11.8-15.2) gm/dl Hct (35.5-45.6) % MCV (84-94) fl MCH (28-32) pg MCHC (32-34) % RDW (13.2-15.2) % Plt Count (140-440) K/mm3 Lymph % (Auto) (13.4-35.0) % [place] % (Auto) (0.0-7.3) % Eos % (Auto) (0.0-4.3) % Baso % (Auto) (0.0-1.8) % Lymph # (Auto) (1.2-5.4) K/mm3 [place] # (Auto) (0.0-0.8) K/mm3 Eos # (Auto) (0.0-0.4) K/mm3 Baso # (Auto) (0.0-0.1) K/mm3 Seg Neutrophils % (40.0-70.0) % Seg Neutrophils # (1.8-7.7) K/mm3 Sodium (137-145) mmol/L Potassium (3.6-5.0) mmol/L Chloride (98-107) mmol/L Carbon Dioxide (22-30) mmol/L Anion Gap mmol/L BUN (9-20) mg/dL Creatinine (0.8-1.3) mg/dL Estimated GFR ml/min BUN/Creatinine Ratio % Glucose (75-100) mg/dL Calcium (8.4-10.2) mg/dL Total Bilirubin 0.20 (0.1-1.2) mg/dL Direct Bilirubin < 0.2 (0-0.2) mg/dL Indirect Bilirubin 0.0 mg/dL AST 31 (5-40) units/L ALT 27 (7-56) units/L Alkaline Phosphatase 86 (35-129) units/L Total Protein 7.1 (6.3-8.2) g/dL Albumin 4.4 (3.9-5) g/dL Albumin/Globulin Ratio 1.6 % Lipase (13-60) units/L Urine Color (Yellow) Urine Turbidity (Clear) Urine pH (5.0-7.0) Ur Specific [place] (1.003-1.030) Urine Protein (Negative) mg/dL Urine Glucose (UA) (Negative) mg/dL Urine Ketones (Negative) mg/dL Urine Blood (Negative) Urine Nitrite (Negative) Ur Reducing Substances Urine Bilirubin (Negative) Urine Ictotest Urine Urobilinogen (<2.0) mg/dL Ur Leukocyte Esterase (Negative) Urine WBC (Auto) (0.0-6.0) /HPF Urine RBC (Auto) (0.0-6.0) /HPF U Epithel Cells (Auto) (0-13.0) /HPF - Radiology Data Radiology results: image reviewed interpreted by me: Abdominal x-ray shows nonspecific nonobstructive bowel gas. No free air. - Medical Decision Making This patient presents with a 3-day history of generalized abdominal pain, as well as a complaint of some generalized body aches. On examination there is s ome reproducible abdominal tenderness to palpation. However, the abdomen is soft, nondistended and nontoxic in appearance. Labs have been unremarkable including CBC, metabolic panel, lipase, urinalysis. Abdominal x-ray shows nonspecific nonobstructive bowel gas, no free air. Vital signs reassuring including being afebrile. The patient was reevaluated multiple times and oftentimes is seen sleeping and/or resting comfortably. For these reasons the patient appears safe for discharge home at this time. He has been given outpatient referral for primary care. He was instructed to avoid alcohol, spicy and fried foods. He will return to the emergency department with any worsening of his symptoms or with any acute distress. Critical Care Time: No Critical care attestation.: If time is entered above; I have spent that time in minutes in the direct care of this critically ill patient, excluding procedure time. ED Disposition Clinical Impression: Body aches Abdominal pain Qualifiers: Abdominal location: generalized Qualified Code(s): R10.84 - Generalized abdominal pain Disposition: 01 HOME / SELF CARE / HOMELESS Is pt being admited?: No Condition: Stable Instructions: Abdominal Pain, Adult, Musculoskeletal Pain Additional Instructions: Please follow-up with a primary care physician in the next few days. I have given you a referral for a local primary care physician, Dr. Louis, and a primary care clinic, [facility]. Return to the emergency department with any worsening of your symptoms, new or concerning symptoms not addressed during this current emergency department visit, or with any acute distress. Referrals: DANNY LOUIS MD [Staff Physician] - 3-5 Days [facility] [Provider Group] - 3-5 Days Time of Disposition: 22:01
[2021-07-04 20:38] LABS: Basophils # (Auto) 0.1 K/mm3 (0.0-0.1); Basophils % (Auto) 0.7 % (0.0-1.8); Eosinophils # (Auto) 0.2 K/mm3 (0.0-0.4); Eosinophils % (Auto) 2.7 % (0.0-4.3); Hemoglobin 14.9 gm/dl (11.8-15.2); Mean Corpuscular HGB Conc 34 % (32-34); Mean Corpuscular Volume 96 fl (84-94); Monocytes # (Auto) 0.6 K/mm3 (0.0-0.8); Monocytes % (Auto) 8.5 % (0.0-7.3); Platelet Count 274 K/mm3 (140-440); Red Blood Count 4.57 M/mm3 (3.65-5.03); Red Cell Distribution Width 12.8 % (13.2-15.2)
[2021-07-04 20:49] LABS: Bilirubin,Urine Negative (Negative); Blood,Urine Negative (Negative); Color,Urine Yellow (Yellow); Protein,Urine <15 mg/dL mg/dL (Negative); Urobilinogen,Urine < 2.0 mg/dL (<2.0)
[2021-07-04 21:35] LABS: BUN/Creatinine Ratio 8; Blood Urea Nitrogen 10 mg/dL (9-20); Calcium 9.4 mg/dL (8.4-10.2); Hemolysis Index 38
[2021-07-04 21:37] LABS: Alanine Aminotransferase 27 units/L (7-56); Albumin 4.4 g/dL (3.9-5)
[2021-07-04 21:41] LABS: Bilirubin,Direct < 0.2 mg/dL (0-0.2)
--- NOTE | 2021-07-04 21:49 | XRay Report ---
XR abd series w cxr 1V INDICATION / CLINICAL INFORMATION: Abd pain. COMPARISON: None available. FINDINGS: SUPPORT DEVICES: None. HEART / MEDIASTINUM: No significant abnormality. LUNGS / PLEURA: Lungs are clear. Costophrenic sulci are sharp. No pneumothorax. ABDOMEN: Nonobstructive bowel gas pattern. No pneumoperitoneum. ADDITIONAL FINDINGS: No significant additional findings. IMPRESSION: 1. No acute findings. 2. Nonobstructive bowel gas pattern. Signer Name: Dakotah Hughes MD Signed: 07/04/2021 9:45 PM Workstation Name: [id number]
== END 2021-07-04 23:02 | disposition home or self-care (01) ==
LOC: ED 18:50
DX: R10.84 Generalized abdominal pain (principal); M79.10 Myalgia, unspecified site
CPT/HCPCS: 36415; 74022; 80048; 80076; 81001; 83690; 85025

== ENCOUNTER 2021-07-13 12:12 | Emergency (ER) | payer MEDICAID ==
--- NOTE | 2021-07-13 12:42 | Emergency Department Report ---
HPI - General Chief Complaint: Psych Time Seen by Provider: 07/13/21 12:30 - HPI HPI: Room 12 The patient is a 45-year-old male present with chief complaint of suicidal ideation. The patient has a history of bipolar disorder and schizophrenia and states he has been out of his psychiatric medications for the past 4 to 5 days. Patient states he is felt suicidal for the past 5 days with a plan to go into traffic. Patient denies any attempts at harming himself ED Past Medical Hx - Past Medical History Hx Hypertension: Yes Hx Psychiatric Treatment: Yes (Bipolar disorder, schizophrenia, anxiety) Hx Asthma: Yes - Surgical History Additional Surgical History: Left hip surgery - Social History Smoking Status: Current Every Day Smoker (1 pack/day) Substance Use Type: None (Denies illicit drug use) - Medications Home Medications: Home Medications Medication Instructions Recorded Confirmed Last Taken Type amLODIPine 5 mg PO DAILY 04/16/21 05/24/21 Unknown History Gabapentin 300 mg PO Q8HR 30 Days #60 capsule 04/20/21 05/23/21 Unknown Rx Ibuprofen [Motrin 800 MG tab] 800 mg PO Q8H PRN tablet 04/20/21 05/23/21 Unknown Rx amLODIPine 5 mg PO DAILY tablet 04/20/21 05/23/21 Unknown Rx Nicotine [Habitrol] 21 mg TD QDAY #30 patch 05/27/21 Unknown Rx OLANzapine [Zyprexa] 10 mg PO QDAY #30 tablet 05/27/21 Unknown Rx Sertraline [Zoloft] 200 mg PO QDAY #60 tablet 05/27/21 Unknown Rx hydrOXYzine PAMOATE [Vistaril] 25 mg PO BID PRN #60 capsule 05/27/21 Unknown Rx traZODone [Desyrel] 50 mg PO QHS #30 tablet 05/27/21 Unknown Rx ED Review of Systems ROS: Stated complaint: SUICIDAL THOUGHTS Other details as noted in HPI Constitutional: no symptoms reported Eyes: denies: eye pain ENT: denies: throat pain Respiratory: no symptoms reported Cardiovascular: orthopnea. denies: chest pain Gastrointestinal: denies: abdominal pain Genitourinary: denies: dysuria Musculoskeletal: denies: back pain Neurological: denies: headache Psychiatric: suicidal thoughts Physical Exam - Physical Exam Physical Exam: GENERAL: The patient is well-developed well-nourished male sitting in chair not appearing to be in acute distress. [] HEENT: Normocephalic. Atraumatic. Extraocular motions are intact. Patient has moist mucous membranes. NECK: Supple. Trachea midline CHEST/LUNGS: Clear to auscultation. There is no respiratory distress noted. HEART/CARDIOVASCULAR: Regular. There is no tachycardia. There is no gallop rub or murmur. ABDOMEN: Abdomen is soft, nontender. Patient has normal bowel sounds. There is no abdominal distention. SKIN: There is no rash. There is no edema. There is no diaphoresis. NEURO: The patient is awake, alert, and oriented. The patient is cooperative. The patient has no focal neurologic deficits. The patient has normal speech. GCS 15 MUSCULOSKELETAL: There is no evidence of acute injury. ED Medical Decision Making - Lab Data Result diagrams: 07/13/21 13:18 07/13/21 13:18 Laboratory Tests 07/13/21 07/13/21 07/13/21 13:18 13:18 13:18 WBC 8.4 RBC 5.42 H Hgb 15.3 H Hct 47.4 H MCV 88 MCH 28 MCHC 32 RDW 14.2 Plt Count 223 Lymph % (Auto) 18.2 [place] % (Auto) 5.1 Eos % (Auto) 1.1 Baso % (Auto) 0.7 Lymph # (Auto) 1.5 [place] # (Auto) 0.4 Eos # (Auto) 0.1 Baso # (Auto) 0.1 Seg Neutrophils % 74.9 H Seg Neutrophils # 6.3 Sodium 144 Potassium 4.2 Chloride 107.0 Carbon Dioxide 16 L Anion Gap 25 BUN 11 Creatinine 0.9 Estimated GFR > 60 BUN/Creatinine Ratio 12 Glucose 146 H Calcium 9.3 Urine Color Urine Turbidity Urine pH Ur Specific [place] Urine Protein Urine Glucose (UA) Urine Ketones Urine Blood Urine Nitrite Urine Bilirubin Urine Urobilinogen Ur Leukocyte Esterase Urine WBC (Auto) Urine RBC (Auto) Urine Mucus Salicylates < 0.3 L Urine Opiates Screen Urine Methadone Screen Acetaminophen Ur Barbiturates Screen Ur Phencyclidine Scrn Ur Amphetamines Screen U Benzodiazepines Scrn Urine Cocaine Screen U Marijuana (THC) Screen Drugs of Abuse Note Plasma/Serum Alcohol 07/13/21 07/13/21 07/13/21 13:18 13:18 Unknown WBC RBC Hgb Hct MCV MCH MCHC RDW Plt Count Lymph % (Auto) [place] % (Auto) Eos % (Auto) Baso % (Auto) Lymph # (Auto) [place] # (Auto) Eos # (Auto) Baso # (Auto) Seg Neutrophils % Seg Neutrophils # Sodium Potassium Chloride Carbon Dioxide Anion Gap BUN Creatinine Estimated GFR BUN/Creatinine Ratio Glucose Calcium Urine Color Yellow Urine Turbidity Clear Urine pH 5.0 Ur Specific [place] 1.023 Urine Protein 30 mg/dl Urine Glucose (UA) Neg Urine Ketones Neg Urine Blood Neg Urine Nitrite Neg Urine Bilirubin Neg Urine Urobilinogen < 2.0 Ur Leukocyte Esterase Neg Urine WBC (Auto) 1.0 Urine RBC (Auto) < 1.0 Urine Mucus Few Salicylates Urine Opiates Screen Urine Methadone Screen Acetaminophen 5.0 L Ur Barbiturates Screen Ur Phencyclidine Scrn Ur Amphetamines Screen U Benzodiazepines Scrn Urine Cocaine Screen U Marijuana (THC) Screen Drugs of Abuse Note Plasma/Serum Alcohol < 0.01 07/13/21 Unknown WBC RBC Hgb Hct MCV MCH MCHC RDW Plt Count Lymph % (Auto) [place] % (Auto) Eos % (Auto) Baso % (Auto) Lymph # (Auto) [place] # (Auto) Eos # (Auto) Baso # (Auto) Seg Neutrophils % Seg Neutrophils # Sodium Potassium Chloride Carbon Dioxide Anion Gap BUN Creatinine Estimated GFR BUN/Creatinine Ratio Glucose Calcium Urine Color Urine Turbidity Urine pH Ur Specific [place] Urine Protein Urine Glucose (UA) Urine Ketones Urine Blood Urine Nitrite Urine Bilirubin Urine Urobilinogen Ur Leukocyte Esterase Urine WBC (Auto) Urine RBC (Auto) Urine Mucus Salicylates Urine Opiates Screen Negative Urine Methadone Screen Negative Acetaminophen Ur Barbiturates Screen Negative Ur Phencyclidine Scrn Negative Ur Amphetamines Screen Negative U Benzodiazepines Scrn Negative Urine Cocaine Screen Negative U Marijuana (THC) Screen Negative Drugs of Abuse Note Disclamer Plasma/Serum Alcohol - Differential Diagnosis Suicidal ideation Critical care attestation.: If time is entered above; I have spent that time in minutes in the direct care of this critically ill patient, excluding procedure time. ED Disposition Clinical Impression: Suicidal ideation Disposition: [address] [place] [address] Is pt being admited?: No Does the pt Need Aspirin: No Condition: Stable Time of Disposition: 15:32 (Awaiting acceptance)
[2021-07-13 13:26] LABS: Basophils # (Auto) 0.1 K/mm3 (0.0-0.1); Basophils % (Auto) 0.7 % (0.0-1.8); Eosinophils # (Auto) 0.1 K/mm3 (0.0-0.4); Eosinophils % (Auto) 1.1 % (0.0-4.3); Hematocrit 47.4 % (35.5-45.6); Hemoglobin 15.3 gm/dl (11.8-15.2); Lymphocytes # (Auto) 1.5 K/mm3 (1.2-5.4); Lymphocytes % (Auto) 18.2 % (13.4-35.0); Mean Corpuscular HGB Conc 32 % (32-34); Mean Corpuscular Volume 88 fl (84-94); Monocytes # (Auto) 0.4 K/mm3 (0.0-0.8); Monocytes % (Auto) 5.1 % (0.0-7.3); Platelet Count 223 K/mm3 (140-440); Red Blood Count 5.42 M/mm3 (3.65-5.03); Red Cell Distribution Width 14.2 % (13.2-15.2)
[2021-07-13 14:48] LABS: BUN/Creatinine Ratio 12; Blood Urea Nitrogen 11 mg/dL (9-20); Calcium 9.3 mg/dL (8.4-10.2); Hemolysis Index 46
[2021-07-13 15:02] LABS: Bilirubin,Urine NEG (Negative); Blood,Urine NEG (Negative); Color,Urine Yellow (Yellow); Mucus,Urine FEW /HPF; RBC,Urine < 1.0 /HPF (0.0-6.0); Urobilinogen,Urine < 2.0 mg/dL (<2.0)
[2021-07-13 15:11] LABS: Amphetamine Screen,Urine Negative; Benzodiazepines Screen,Urine Negative; Cannabinoid Screen,Urine Negative; Cocaine Screen,Urine Negative; Methadone Screen,Urine Negative; Opiate Screen,Urine Negative
[2021-07-13] MEDS ORDERED: IBUPROFEN 800 MG TAB PO ONE (15:40)
[2021-07-13] MEDS ORDERED: hydrOXYzine PAMOATE 25 MG CAP PO PRN (19:10)
[2021-07-14 07:49] VITALS: BP 136/80
[2021-07-14] MEDS ORDERED: IBUPROFEN 800 MG TAB PO ONE (10:32)
--- NOTE | 2021-07-14 10:38 | Consultation ---
History of Present Illness - Reason for Consult Consult date: 07/14/21 Reason for consult: suicidal ideation - History of Present Psychiatric Illness ED Note: The patient is a 45-year-old male present with chief complaint of suicidal ideation. The patient has a history of bipolar disorder and schizophrenia and states he has been out of his psychiatric medications for the past 4 to 5 days. Patient states he is felt suicidal for the past 5 days with a plan to go into traffic. Patient denies any attempts at harming himself David Dixon is a 45 year old male with history of Depression, Anxiety, Bipolar, Schizophrenia. The patient reports running out of medications about 6 days ago. He endorses suicidal ideation with a plan to run into traffic. He reports auditory and visual hallucinations stating " voices telling me to harm myself and I see black and white dots and shadows." PAST PSYCHIATRIC HISTORY: Diagnoses: Depression, Anxiety, Bipolar, Schizophrenia Suicide attempts or Self-harm behavior: X20 Prior psychiatric hospitalizations: Yes Substance Abuse history: Denies Previous psychiatric medications tried: Yes Outpatient treatment: yes PAST MEDICAL HISTORY: None reported or document Family Psychiatric History: None reported or documented SOCIAL HISTORY Marital Status: Single Living Arrangements: Transitional home Employment Status: Unemployed Access to guns/weapons: denies Education: 12th grade History of Abuse: denies Legal History: denies REVIEW OF SYSTEMS Constitutional: Negative for weight loss ENT: Negative for stridor Respiratory: Negative for cough or hemoptysis All other systems reviewed and are negative MENTAL STATUS EXAMINATION General Appearance and Behavior: Age appropriate, good hygiene, wearing appropriate clothes, calm and cooperative polite with questioning. Cooperation: engaged Psychomotor Behavior: Psychomotor normal Mood: depressed Affect and affective range: congruent with stated mood Thought Process: goal directed Thought Content: Suicidal Speech: Normal volume, Regular rate and rhythm, Suicidal Ideation: Yes Homicidal Ideation: Denies Hallucinations: Auditory and visual Delusions: None elicited Impulse Control: Questionable Insight and Judgment: Limited Memory: Limited Attention: attentive Orientation: a/o Assessment and Plan (1)Schizophrenia Treatment Plan 1013 Restart home medications Sitter: per primary Medical: Per primary Disposition: Recommend acute psychiatric inpatient treatment Will follow. Thanks case staffed with Dr. Renteria Medications and Allergies Allergies Allergy/AdvReac Type Severity Reaction Status Date / Time No Known Allergies Allergy Verified 07/13/21 12:17 Home Medications Medication Instructions Recorded Confirmed Last Taken Type amLODIPine 5 mg PO DAILY 04/16/21 05/24/21 Unknown History Gabapentin 300 mg PO Q8HR 30 Days #60 capsule 04/20/21 05/23/21 Unknown Rx Ibuprofen [Motrin 800 MG tab] 800 mg PO Q8H PRN tablet 04/20/21 05/23/21 Unknown Rx amLODIPine 5 mg PO DAILY tablet 04/20/21 05/23/21 Unknown Rx Nicotine [Habitrol] 21 mg TD QDAY #30 patch 05/27/21 Unknown Rx OLANzapine [Zyprexa] 10 mg PO QDAY #30 tablet 05/27/21 Unknown Rx Sertraline [Zoloft] 200 mg PO QDAY #60 tablet 05/27/21 Unknown Rx hydrOXYzine PAMOATE [Vistaril] 25 mg PO BID PRN #60 capsule 05/27/21 Unknown Rx traZODone [Desyrel] 50 mg PO QHS #30 tablet 05/27/21 Unknown Rx Active Meds: Active Medications Hydroxyzine Pamoate (Hydroxyzine Pamoate 25 Mg Cap) 25 mg PO Q6H PRN PRN Reason: Anxiety Last Admin: 07/13/21 19:21 Dose: 25 mg Documented by: Mental Status Exam - Vital signs Last Vital Signs Temp 98 F 07/14/21 07:49 Pulse 85 07/14/21 07:49 Resp 20 07/14/21 07:49 BP 136/80 07/14/21 07:49 Pulse Ox 98 07/14/21 07:49 Results Result Diagrams: 07/13/21 13:18 07/13/21 13:18 Abnormal lab results 07/13/21 07/13/21 07/13/21 Range/Units 13:18 13:18 13:18 RBC 5.42 H (3.65-5.03) M/mm3 Hgb 15.3 H (11.8-15.2) gm/dl Hct 47.4 H (35.5-45.6) % Seg Neutrophils % 74.9 H (40.0-70.0) % Carbon Dioxide 16 L (22-30) mmol/L Glucose 146 H (75-100) mg/dL Salicylates < 0.3 L (2.8-20.0) mg/dL Acetaminophen (10.0-30.0) ug/mL 07/13/21 Range/Units 13:18 RBC (3.65-5.03) M/mm3 Hgb (11.8-15.2) gm/dl Hct (35.5-45.6) % Seg Neutrophils % (40.0-70.0) % Carbon Dioxide (22-30) mmol/L Glucose (75-100) mg/dL Salicylates (2.8-20.0) mg/dL Acetaminophen 5.0 L (10.0-30.0) ug/mL All other labs normal.
[2021-07-14] MEDS ORDERED: SERTRALINE 100 MG TAB PO SCH (11:00)
[2021-07-14] MEDS ORDERED: hydrOXYzine PAMOATE 25 MG CAP PO PRN (11:00)
[2021-07-14] MEDS ORDERED: GABAPENTIN 300 MG CAP PO SCH (14:00)
[2021-07-14] MEDS ORDERED: traZODone 50 MG TAB PO SCH (22:00)
== END 2021-07-14 16:55 ==
LOC: ED 12:12
DX: R45.851 Suicidal ideations (principal); I10 Essential (primary) hypertension; Z20.822 Contact with and (suspected) exposure to COVID-19; F20.9 Schizophrenia, unspecified; F41.9 Anxiety disorder, unspecified; F31.9 Bipolar disorder, unspecified; J45.909 Unspecified asthma, uncomplicated; F17.210 Nicotine dependence, cigarettes, uncomplicated
CPT/HCPCS: 36415; 80048; 80307; 81001; 85025; 99285; Q0177; U0003; 80320; J3490; G0480

== ENCOUNTER 2021-07-14 15:40 | Inpatient (IN) | payer MEDICAID ==
[2021-07-14] MEDS: traZODone 50 MG TAB PO SCH (21:46)
[2021-07-14] MEDS: IBUPROFEN 800 MG TAB PO PRN (21:47)
[2021-07-14] MEDS: GABAPENTIN 300 MG CAP PO SCH (21:47)
[2021-07-15] MEDS: GABAPENTIN 300 MG CAP PO SCH ×3 (05:18→21:34)
--- NOTE | 2021-07-15 07:33 | History and Physical Report ---
GP History & Physical - History of Present Illness Date of admission: 07/14/21 Date of Examination: 07/15/21 Reason for Admission: Danger to self Chief Complaint: suicidal ideation History of Present Illness: The patient was seen in the ED:David Guzmán is a 45 year old male with history of Depression, Anxiety, Bipolar, Schizophrenia. The patient reports running out of medications about 6 days ago. He endorses suicidal ideation with a plan to run into traffic. He reports auditory and visual hallucinations stating " voices telling me to harm myself and I see black and white dots and shadows." The patient is seen this morning, he reports feeling better. He states sleep as poor; continues to endorse depression, and auditory hallucinations. He denies suicidal/homicidal ideation. PAST PSYCHIATRIC HISTORY: Diagnoses: Depression, Anxiety, Bipolar, Schizophrenia Suicide attempts or Self-harm behavior: X20 Prior psychiatric hospitalizations: Yes Substance Abuse history: Denies Previous psychiatric medications tried: Yes Outpatient treatment: yes PAST MEDICAL HISTORY: None reported or document Family Psychiatric History: None reported or documented SOCIAL HISTORY Marital Status: Single Living Arrangements: Transitional home Employment Status: Unemployed Access to guns/weapons: denies Education: 12th grade History of Abuse: denies Legal History: denies REVIEW OF SYSTEMS Constitutional: Negative for weight loss ENT: Negative for stridor Respiratory: Negative for cough or hemoptysis All other systems reviewed and are negative MENTAL STATUS EXAMINATION General Appearance and Behavior: Age appropriate, good hygiene, wearing appropriate clothes, calm and cooperative polite with questioning. Cooperation: engaged Psychomotor Behavior: Psychomotor normal Mood: depressed Affect and affective range: congruent with stated mood Thought Process: goal directed Thought Content: Suicidal Speech: Normal volume, Regular rate and rhythm, Suicidal Ideation: Yes Homicidal Ideation: Denies Hallucinations: Auditory Delusions: None elicited Impulse Control: Questionable Insight and Judgment: Limited Memory: Limited Attention: attentive Orientation: a/o Assessment and Plan (1)Schizophrenia Treatment Plan Patient admitted for inpatient psychiatric evaluation, medication adjustment and close monitoring The patient's behavior, mood, sleep and appetite will be closely monitored. Patient enrolled in individual and group therapeutic sessions and encouraged to attend. Patient provided with a safe and structured environment. Patient's physical health needs will be addressed by the Hospitalist. Hospitalist Consulted Labs including CBC, CMP, Lipid profile and Hemoglobin A1C levels ordered for baseline reference Social Assessment will be completed and the Technical Training Specialist will work with patient and family to ensure a suitable and safe disposition Medication adjustment will be made as clinically indicated Continue home meds Start Cogentin 0.5mg po BID Usual Wellness Rastafari/Preservation: - Start Trazodone 50 mg po QHS & 50 mg po QHS PRN between 10 PM & 2 AM for insomnia - Start Melatonin 5 mg po QHS to promote circadian rhythm The patient agreed on the treatment plan, understood the risk, benefit, alternative treatment, potential consequence of no treatment, and gave informed consent. Estimated days:6 Post hospital care: primary care provider, psychiatric provider Case staffed with Dr. Renteria Legal Status: Voluntary Reaction to Hospitalization: Accepting Medications and Allergies Medications and Allergies Allergies Allergy/AdvReac Type Severity Reaction Status Date / Time No Known Allergies Allergy Verified 07/13/21 12:17 Home Medications Medication Instructions Recorded Confirmed Last Taken Type amLODIPine 5 mg PO DAILY 04/16/21 07/15/21 Unknown History Gabapentin 300 mg PO Q8HR 30 Days #60 capsule 04/20/21 07/15/21 Unknown Rx Ibuprofen [Motrin 800 MG tab] 800 mg PO Q8H PRN tablet 04/20/21 07/15/21 Unknown Rx amLODIPine 5 mg PO DAILY tablet 04/20/21 07/15/21 Unknown Rx Nicotine [Habitrol] 21 mg TD QDAY #30 patch 05/27/21 07/15/21 Unknown Rx OLANzapine [Zyprexa] 10 mg PO QDAY #30 tablet 05/27/21 07/15/21 Unknown Rx Sertraline [Zoloft] 200 mg PO QDAY #60 tablet 05/27/21 07/15/21 Unknown Rx hydrOXYzine PAMOATE [Vistaril] 25 mg PO BID PRN #60 capsule 05/27/21 07/15/21 Unknown Rx traZODone [Desyrel] 50 mg PO QHS #30 tablet 05/27/21 07/15/21 Unknown Rx Active Meds: Active Medications Gabapentin (Gabapentin 300 Mg Cap) 300 mg PO Q8HR KAJAL Last Admin: 07/15/21 05:18 Dose: 300 mg Documented by: Ibuprofen (Ibuprofen 800 Mg Tab) 800 mg PO Q8H PRN PRN Reason: Pain, Mild (1-3) Last Admin: 07/14/21 21:47 Dose: 800 mg Documented by: Trazodone HCl (Trazodone 50 Mg Tab) 50 mg PO QHS [facility] Last Admin: 07/14/21 21:46 Dose: 50 mg Documented by: Results - Results Labs/Vitals: Laboratory Last Values POC Glucose 113 mg/dL (70-105) H 07/14/21 17:37 Last Vital Signs Temp 98.4 F 07/14/21 21:15 Pulse 76 07/14/21 21:15 Resp 18 07/14/21 21:47 BP 116/80 07/14/21 21:15 Pulse Ox 96 07/14/21 21:15 Physical Examination - Constitutional Vitals: Vital Signs Temp Pulse Resp BP Pulse Ox 98.4 F 76 18 116/80 96 07/14/21 21:15 07/14/21 21:15 07/14/21 21:47 07/14/21 21:15 07/14/21 21:15 Temperature -Last 24 Hours Temperature 98.4 F Temperature 98.4 F Temperature 98.5 F Mental Status Exam - Vital signs Last Vital Signs Temp 98.4 F 07/14/21 21:15 Pulse 76 07/14/21 21:15 Resp 18 07/14/21 21:47 BP 116/80 07/14/21 21:15 Pulse Ox 96 07/14/21 21:15 Physician Certification - Certification Statement Physician Certification Statement: This is an acknowledgement statement that DAVID GUZMÁN is a 45 year old M who requires inpatient psychiatric admission for treatment which could reasonab ly be expected to improve the patient's condition for Estimated period of time patient will need to remain in the hospital: [ ] Plan for post-hospital care: [ ]
[2021-07-15] MEDS: BENZTROPINE 0.5 MG TAB PO SCH ×2 (09:11→21:34)
[2021-07-15] MEDS: SERTRALINE 100 MG TAB PO SCH (09:11)
[2021-07-15] MEDS: IBUPROFEN 800 MG TAB PO PRN ×2 (10:05→23:21)
[2021-07-15 14:52] LABS: Hepatitis C Virus Antibody Non-Reactive (NonReactive)
[2021-07-15 14:54] LABS: Hepatitis B Surface Antigen Nonreactive (Negative)
--- NOTE | 2021-07-15 18:33 | Consultation ---
History of Present Illness - Reason for Consult Consult date: 07/15/21 - History of Present Illness Reason for consultation: Medical assessment at the time of admission to psychiatric unit. 45 year old male with history of HTN, asthma, tobacco smoker, left hip pain, depression, Anxiety, Bipolar, Schizophrenia reportedly out of medications about 6 days ago and admitted for suicidal ideation with a plan to run into traffic. He reports auditory and visual hallucinations stating " voices telling me to harm myself and I see black and white dots and shadows." He states sleep as poor. Review of systems: Patient is currently alert and oriented and able to answer questions and give history. Patient denies history of heart disease or diabetes. He smokes 1 PPD. He reports some generalized body aches and chronic left hip pain at least since 2 years. Typically takes ibuprofen. He denies dizziness or lightheadedness, chest pains, headaches, acute vision changes, dyspnea, palpitations, chest pains, acute GI symptoms like nausea, abdominal pains or diarrhea. He denies dysuria or hesitancy. CBC unremarkable, CMP remarkable for CO2 16. A1c 5.8. BP 110/74, pulse 79. He takes amlodipine 5 mg daily for hypertension. PAST MEDICAL HISTORY: HTN, asthma, tobacco smoker, left hip pain, depression, Anxiety, Bipolar, Schizophrenia Family History: Unknown SOCIAL HISTORY Marital Status: Single Living Arrangements: Transitional home Medications and Allergies Allergies Allergy/AdvReac Type Severity Reaction Status Date / Time No Known Allergies Allergy Verified 07/13/21 12:17 Home Medications Medication Instructions Recorded Confirmed Last Taken Type amLODIPine 5 mg PO DAILY 04/16/21 07/15/21 Unknown History Gabapentin 300 mg PO Q8HR 30 Days #60 capsule 04/20/21 07/15/21 Unknown Rx Ibuprofen [Motrin 800 MG tab] 800 mg PO Q8H PRN tablet 04/20/21 07/15/21 Unknown Rx amLODIPine 5 mg PO DAILY tablet 04/20/21 07/15/21 Unknown Rx Nicotine [Habitrol] 21 mg TD QDAY #30 patch 05/27/21 07/15/21 Unknown Rx OLANzapine [Zyprexa] 10 mg PO QDAY #30 tablet 05/27/21 07/15/21 Unknown Rx Sertraline [Zoloft] 200 mg PO QDAY #60 tablet 05/27/21 07/15/21 Unknown Rx hydrOXYzine PAMOATE [Vistaril] 25 mg PO BID PRN #60 capsule 05/27/21 07/15/21 Unknown Rx traZODone [Desyrel] 50 mg PO QHS #30 tablet 05/27/21 07/15/21 Unknown Rx Active Meds: Active Medications Benztropine Mesylate (Benztropine 0.5 Mg Tab) 0.5 mg PO BID [facility] Last Admin: 07/15/21 09:11 Dose: 0.5 mg Documented by: Gabapentin (Gabapentin 300 Mg Cap) 300 mg PO Q8HR [facility] Last Admin: 07/15/21 14:00 Dose: 300 mg Documented by: Hydroxyzine Pamoate (Hydroxyzine Pamoate 25 Mg Cap) 25 mg PO BID PRN PRN Reason: Anxiety Ibuprofen (Ibuprofen 800 Mg Tab) 800 mg PO Q8H PRN PRN Reason: Pain, Mild (1-3) Last Admin: 07/15/21 10:05 Dose: 800 mg Documented by: Olanzapine (Olanzapine 10 Mg Tab) 10 mg PO QDAY [facility] Last Admin: 07/15/21 09:11 Dose: 10 mg Documented by: Sertraline HCl (Sertraline 100 Mg Tab) 200 mg PO QDAY [facility] Last Admin: 07/15/21 09:11 Dose: 200 mg Documented by: Trazodone HCl (Trazodone 50 Mg Tab) 50 mg PO QHS [facility] Last Admin: 07/14/21 21:46 Dose: 50 mg Documented by: Exam - Constitutional Vitals: Temp Pulse Resp BP Pulse Ox 98.4 F 79 18 110/74 93 07/15/21 07:48 07/15/21 07:48 07/15/21 07:48 07/15/21 07:48 07/15/21 07:48 General appearance: Present: no acute distress, well-nourished, other (Dysphoric) - EENT Eyes: Present: PERRL, EOM intact. Absent: scleral icterus ENT: hearing intact, clear oral mucosa - Respiratory Respiratory effort: normal Respiratory: bilateral: CTA - Cardiovascular Rhythm: regular - Extremities Extremities: No edema - Abdominal General gastrointestinal: Present: soft, non-tender, normal bowel sounds Male genitourinary: Present: deferred - Rectal Rectal Exam: deferred - Integumentary Integumentary: Absent: rash - Musculoskeletal Musculoskeletal: strength equal bilaterally - Psychiatric Psychiatric: depressed - Neurologic Neurologic: no focal deficits, moves all extremities Assessment and Plan Assessment: Hypertension on amlodipine, currently blood pressure is soft 110/74 Asthma/COPD, currently asymptomatic, ongoing tobacco smoker Chronic left hip pains and generalized aches, patient is ambulatory without significant difficulty History of anxiety, depression, schizophrenia Admitted for hallucinations and suicidal ideation CBC, CMP, TSH, UA, hepatitis serology unremarkable. Recommendations: Hold amlodipine since BP is soft and may resume when SBP is 140 or above. Adequate hydration May use Tylenol or ibuprofen for chronic aches/pains. Thanks for the consultation and will follow the patient on as needed basis.
[2021-07-15] MEDS: traZODone 50 MG TAB PO SCH (21:34)
[2021-07-15] MEDS: hydrOXYzine PAMOATE 25 MG CAP PO PRN (23:22)
[2021-07-16] MEDS: GABAPENTIN 300 MG CAP PO SCH ×3 (06:24→21:23)
[2021-07-16] MEDS: IBUPROFEN 800 MG TAB PO PRN ×2 (09:11→21:22)
[2021-07-16] MEDS: SERTRALINE 100 MG TAB PO SCH (09:12)
[2021-07-16] MEDS: BENZTROPINE 0.5 MG TAB PO SCH ×2 (09:12→21:23)
[2021-07-16] MEDS: hydrOXYzine PAMOATE 25 MG CAP PO PRN (11:22)
--- NOTE | 2021-07-16 11:50 | Progress Note ---
Subjective Date of service: 07/16/21 Subjective Comment: The patient was seen today. He appears anxious. He says he's still suicidal a little. He denies having a plan. He denies hallucinations of any kind. REVIEW OF SYSTEMS Constitutional: Negative for weight loss ENT: Negative for stridor Respiratory: Negative for cough or hemoptysis All other systems reviewed and are negative MENTAL STATUS EXAMINATION General Appearance and Behavior: Age appropriate, good hygiene, wearing appropriate clothes, calm and cooperative polite with questioning. Cooperation: engaged Psychomotor Behavior: Psychomotor normal Mood: anxious Affect and affective range: congruent with stated mood Thought Process: goal directed Thought Content: Suicidal Speech: Normal volume, Regular rate and rhythm, Suicidal Ideation: Yes Homicidal Ideation: Denies Hallucinations: Denies Delusions: None elicited Impulse Control: Questionable Insight and Judgment: Limited Memory: Limited Attention: attentive Orientation: a/o Assessment and Plan (1)Schizophrenia Treatment Plan Patient admitted for inpatient psychiatric evaluation, medication adjustment and close monitoring The patient's behavior, mood, sleep and appetite will be closely monitored. Patient enrolled in individual and group therapeutic sessions and encouraged to attend. Patient provided with a safe and structured environment. Patient's physical health needs will be addressed by the Hospitalist. Hospitalist Consulted Labs including CBC, CMP, Lipid profile and Hemoglobin A1C levels ordered for baseline reference Social Assessment will be completed and the Feller Hand will work with patient and family to ensure a suitable and safe disposition Medication adjustment will be made as clinically indicated Increased Vistaril 50mg po q6h prn anxiety Usual Wellness Nondenominational/Preservation: - Start Trazodone 50 mg po QHS & 50 mg po QHS PRN between 10 PM & 2 AM for insomnia - Start Melatonin 5 mg po QHS to promote circadian rhythm The patient agreed on the treatment plan, understood the risk, benefit, alternative treatment, potential consequence of no treatment, and gave informed consent. Estimated days:6 Post hospital care: primary care provider, psychiatric provider Case staffed with Dr. Renteria Medications and Allergies Allergies Allergy/AdvReac Type Severity Reaction Status Date / Time No Known Allergies Allergy Verified 07/13/21 12:17 Home Medications Medication Instructions Recorded Confirmed Last Taken Type amLODIPine 5 mg PO DAILY 04/16/21 07/15/21 Unknown History Gabapentin 300 mg PO Q8HR 30 Days #60 capsule 04/20/21 07/15/21 Unknown Rx Ibuprofen [Motrin 800 MG tab] 800 mg PO Q8H PRN tablet 04/20/21 07/15/21 Unknown Rx amLODIPine 5 mg PO DAILY tablet 04/20/21 07/15/21 Unknown Rx Nicotine [Habitrol] 21 mg TD QDAY #30 patch 05/27/21 07/15/21 Unknown Rx OLANzapine [Zyprexa] 10 mg PO QDAY #30 tablet 05/27/21 07/15/21 Unknown Rx Sertraline [Zoloft] 200 mg PO QDAY #60 tablet 05/27/21 07/15/21 Unknown Rx hydrOXYzine PAMOATE [Vistaril] 25 mg PO BID PRN #60 capsule 05/27/21 07/15/21 Unknown Rx traZODone [Desyrel] 50 mg PO QHS #30 tablet 05/27/21 07/15/21 Unknown Rx Active Meds: Active Medications Benztropine Mesylate (Benztropine 0.5 Mg Tab) 0.5 mg PO BID [facility] Last Admin: 07/16/21 09:12 Dose: 0.5 mg Documented by: Gabapentin (Gabapentin 300 Mg Cap) 300 mg PO Q8HR [facility] Last Admin: 07/16/21 06:24 Dose: 300 mg Documented by: Hydroxyzine Pamoate (Hydroxyzine Pamoate 25 Mg Cap) 25 mg PO BID PRN PRN Reason: Anxiety Last Admin: 07/16/21 11:22 Dose: 25 mg Documented by: Ibuprofen (Ibuprofen 800 Mg Tab) 800 mg PO Q8H PRN PRN Reason: Pain, Mild (1-3) Last Admin: 07/16/21 09:11 Dose: 800 mg Documented by: Olanzapine (Olanzapine 10 Mg Tab) 10 mg PO QDAY [facility] Last Admin: 07/16/21 09:12 Dose: 10 mg Documented by: Sertraline HCl (Sertraline 100 Mg Tab) 200 mg PO QDAY [facility] Last Admin: 07/16/21 09:12 Dose: 200 mg Documented by: Trazodone HCl (Trazodone 50 Mg Tab) 50 mg PO QHS [facility] Last Admin: 07/15/21 21:34 Dose: 50 mg Documented by: Results - Results Labs/Vitals: Laboratory Last Values POC Glucose 113 mg/dL (70-105) H 07/14/21 17:37 TSH 0.591 mlU/mL (0.270-4.200) 07/15/21 08:34 Hepatitis A IgM Ab Non-reactive (NonReactive) 07/15/21 08:34 Hep Bs Antigen Nonreactive (Negative) 07/15/21 08:34 Hep B Core IgM Ab Non-reactive (NonReactive) 07/15/21 08:34 Hepatitis C Antibody Non-reactive (NonReactive) 07/15/21 08:34 Last Vital Signs Temp 98.4 F 07/15/21 07:48 Pulse 79 07/15/21 07:48 Resp 18 07/15/21 07:48 BP 110/74 07/15/21 07:48 Pulse Ox 93 07/15/21 07:48
[2021-07-16] MEDS: traZODone 50 MG TAB PO SCH (21:23)
[2021-07-17] MEDS: GABAPENTIN 300 MG CAP PO SCH ×3 (05:55→21:12)
[2021-07-17] MEDS: IBUPROFEN 800 MG TAB PO PRN ×3 (05:55→21:12)
--- NOTE | 2021-07-17 09:13 | Progress Note ---
Subjective Date of service: 07/17/21 Principal diagnosis: Schizophrenia Subjective Comment: The patient was seen today. He says he feels okay. The patient says he no longer feels suicidal but still hears voices telling him to hurt himself. REVIEW OF SYSTEMS Constitutional: Negative for weight loss ENT: Negative for stridor Respiratory: Negative for cough or hemoptysis All other systems reviewed and are negative MENTAL STATUS EXAMINATION General Appearance and Behavior: Age appropriate, good hygiene, wearing appropriate clothes, calm and cooperative polite with questioning. Cooperation: engaged Psychomotor Behavior: Psychomotor normal Mood: anxious Affect and affective range: congruent with stated mood Thought Process: goal directed Thought Content: hallucinations Speech: Normal volume, Regular rate and rhythm, Suicidal Ideation: Denies Homicidal Ideation: Denies Hallucinations: Auditory Delusions: None elicited Impulse Control: Questionable Insight and Judgment: Limited Memory: Limited Attention: attentive Orientation: a/o Assessment and Plan (1)Schizophrenia Treatment Plan Patient admitted for inpatient psychiatric evaluation, medication adjustment and close monitoring The patient's behavior, mood, sleep and appetite will be closely monitored. Patient enrolled in individual and group therapeutic sessions and encouraged to attend. Patient provided with a safe and structured environment. Patient's physical health needs will be addressed by the Hospitalist. Hospitalist Consulted Labs including CBC, CMP, Lipid profile and Hemoglobin A1C levels ordered for baseline reference Social Assessment will be completed and the Hand Iii Cutter will work with patient and family to ensure a suitable and safe disposition Medication adjustment will be made as clinically indicated Increased Olanzapine 15mg po daily Usual Wellness Je[employer] Witness/Preservation: - Start Trazodone 50 mg po QHS & 50 mg po QHS PRN between 10 PM & 2 AM for insomnia - Start Melatonin 5 mg po QHS to promote circadian rhythm The patient agreed on the treatment plan, understood the risk, benefit, alternative treatment, potential consequence of no treatment, and gave informed consent. Estimated days:6 Post hospital care: primary care provider, psychiatric provider Case staffed with Dr. Renteria Medications and Allergies Allergies Allergy/AdvReac Type Severity Reaction Status Date / Time No Known Allergies Allergy Verified 07/13/21 12:17 Home Medications Medication Instructions Recorded Confirmed Last Taken Type amLODIPine 5 mg PO DAILY 04/16/21 07/15/21 Unknown History Gabapentin 300 mg PO Q8HR 30 Days #60 capsule 04/20/21 07/15/21 Unknown Rx Ibuprofen [Motrin 800 MG tab] 800 mg PO Q8H PRN tablet 04/20/21 07/15/21 Unknown Rx amLODIPine 5 mg PO DAILY tablet 04/20/21 07/15/21 Unknown Rx Nicotine [Habitrol] 21 mg TD QDAY #30 patch 05/27/21 07/15/21 Unknown Rx OLANzapine [Zyprexa] 10 mg PO QDAY #30 tablet 05/27/21 07/15/21 Unknown Rx Sertraline [Zoloft] 200 mg PO QDAY #60 tablet 05/27/21 07/15/21 Unknown Rx hydrOXYzine PAMOATE [Vistaril] 25 mg PO BID PRN #60 capsule 05/27/21 07/15/21 Unknown Rx traZODone [Desyrel] 50 mg PO QHS #30 tablet 05/27/21 07/15/21 Unknown Rx Active Meds: Active Medications Benztropine Mesylate (Benztropine 0.5 Mg Tab) 0.5 mg PO BID [facility] Last Admin: 07/16/21 21:23 Dose: 0.5 mg Documented by: Gabapentin (Gabapentin 300 Mg Cap) 300 mg PO Q8HR [facility] Last Admin: 07/17/21 05:55 Dose: 300 mg Documented by: Hydroxyzine Pamoate (Hydroxyzine Pamoate 50 Mg Cap) 50 mg PO Q6H PRN PRN Reason: Anxiety Last Admin: 07/17/21 05:54 Dose: 50 mg Documented by: Ibuprofen (Ibuprofen 800 Mg Tab) 800 mg PO Q8H PRN PRN Reason: Pain, Mild (1-3) Last Admin: 07/17/21 05:55 Dose: 800 mg Documented by: Olanzapine (Olanzapine 10 Mg Tab) 10 mg PO QDAY [facility] Last Admin: 07/16/21 09:12 Dose: 10 mg Documented by: Sertraline HCl (Sertraline 100 Mg Tab) 200 mg PO QDAY [facility] Last Admin: 07/16/21 09:12 Dose: 200 mg Documented by: Trazodone HCl (Trazodone 50 Mg Tab) 50 mg PO QHS [facility] Last Admin: 07/16/21 21:23 Dose: 50 mg Documented by: Results - Results Labs/Vitals: Laboratory Last Values POC Glucose 113 mg/dL (70-105) H 07/14/21 17:37 TSH 0.591 mlU/mL (0.270-4.200) 07/15/21 08:34 Hepatitis A IgM Ab Non-reactive (NonReactive) 07/15/21 08:34 Hep Bs Antigen Nonreactive (Negative) 07/15/21 08:34 Hep B Core IgM Ab Non-reactive (NonReactive) 07/15/21 08:34 Hepatitis C Antibody Non-reactive (NonReactive) 07/15/21 08:34 Last Vital Signs Temp 98.7 F 07/16/21 20:00 Pulse 66 07/16/21 20:00 Resp 16 07/16/21 20:00 BP 98/64 07/16/21 20:00 Pulse Ox 95 07/16/21 20:00
[2021-07-17] MEDS: SERTRALINE 100 MG TAB PO SCH (11:11)
[2021-07-17] MEDS: BENZTROPINE 0.5 MG TAB PO SCH ×2 (11:11→21:12)
[2021-07-17] MEDS: traZODone 50 MG TAB PO SCH (21:12)
[2021-07-18] MEDS: GABAPENTIN 300 MG CAP PO SCH ×3 (05:19→21:07)
[2021-07-18] MEDS: SERTRALINE 100 MG TAB PO SCH (09:28)
[2021-07-18] MEDS: BENZTROPINE 0.5 MG TAB PO SCH ×2 (09:28→21:07)
[2021-07-18] MEDS: IBUPROFEN 800 MG TAB PO PRN ×2 (09:29→21:07)
--- NOTE | 2021-07-18 10:06 | Progress Note ---
Subjective Date of service: 07/18/21 Principal diagnosis: Schizophrenia Subjective Comment: The patient was seen today. He says he feels okay. He denies SI/HI or hallucinations of any kind. REVIEW OF SYSTEMS Constitutional: Negative for weight loss ENT: Negative for stridor Respiratory: Negative for cough or hemoptysis All other systems reviewed and are negative MENTAL STATUS EXAMINATION General Appearance and Behavior: Age appropriate, good hygiene, wearing appropriate clothes, calm and cooperative polite with questioning. Cooperation: engaged Psychomotor Behavior: Psychomotor normal Mood: anxious Affect and affective range: congruent with stated mood Thought Process: goal directed Thought Content: hallucinations Speech: Normal volume, Regular rate and rhythm, Suicidal Ideation: Denies Homicidal Ideation: Denies Hallucinations: Auditory Delusions: None elicited Impulse Control: Questionable Insight and Judgment: Limited Memory: Limited Attention: attentive Orientation: a/o Assessment and Plan (1)Schizophrenia Treatment Plan Patient admitted for inpatient psychiatric evaluation, medication adjustment and close monitoring The patient's behavior, mood, sleep and appetite will be closely monitored. Patient enrolled in individual and group therapeutic sessions and encouraged to attend. Patient provided with a safe and structured environment. Patient's physical health needs will be addressed by the Hospitalist. Hospitalist Consulted Labs including CBC, CMP, Lipid profile and Hemoglobin A1C levels ordered for baseline reference Social Assessment will be completed and the Quality Systems Specialist will work with patient and family to ensure a suitable and safe disposition Medication adjustment will be made as clinically indicated Increased Olanzapine 15mg po daily yesterday No changes today Usual Wellness [employer]/Preservation: - Start Trazodone 50 mg po QHS & 50 mg po QHS PRN between 10 PM & 2 AM for insomnia - Start Melatonin 5 mg po QHS to promote circadian rhythm The patient agreed on the treatment plan, understood the risk, benefit, alternative treatment, potential consequence of no treatment, and gave informed consent. Estimated days:6 Post hospital care: primary care provider, psychiatric provider Case staffed with Dr. Renteria Medications and Allergies Allergies Allergy/AdvReac Type Severity Reaction Status Date / Time No Known Allergies Allergy Verified 07/13/21 12:17 Home Medications Medication Instructions Recorded Confirmed Last Taken Type amLODIPine 5 mg PO DAILY 04/16/21 07/15/21 Unknown History Gabapentin 300 mg PO Q8HR 30 Days #60 capsule 04/20/21 07/15/21 Unknown Rx Ibuprofen [Motrin 800 MG tab] 800 mg PO Q8H PRN tablet 04/20/21 07/15/21 Unknown Rx amLODIPine 5 mg PO DAILY tablet 04/20/21 07/15/21 Unknown Rx Nicotine [Habitrol] 21 mg TD QDAY #30 patch 05/27/21 07/15/21 Unknown Rx OLANzapine [Zyprexa] 10 mg PO QDAY #30 tablet 05/27/21 07/15/21 Unknown Rx Sertraline [Zoloft] 200 mg PO QDAY #60 tablet 05/27/21 07/15/21 Unknown Rx hydrOXYzine PAMOATE [Vistaril] 25 mg PO BID PRN #60 capsule 05/27/21 07/15/21 Unknown Rx traZODone [Desyrel] 50 mg PO QHS #30 tablet 05/27/21 07/15/21 Unknown Rx Active Meds: Active Medications Benztropine Mesylate (Benztropine 0.5 Mg Tab) 0.5 mg PO BID [facility] Last Admin: 07/18/21 09:28 Dose: 0.5 mg Documented by: Gabapentin (Gabapentin 300 Mg Cap) 300 mg PO Q8HR [facility] Last Admin: 07/18/21 05:19 Dose: 300 mg Documented by: Hydroxyzine Pamoate (Hydroxyzine Pamoate 50 Mg Cap) 50 mg PO Q6H PRN PRN Reason: Anxiety Last Admin: 07/17/21 16:21 Dose: 50 mg Documented by: Ibuprofen (Ibuprofen 800 Mg Tab) 800 mg PO Q8H PRN PRN Reason: Pain, Mild (1-3) Last Admin: 07/18/21 09:29 Dose: 800 mg Documented by: Olanzapine (Olanzapine 7.5 Mg Tab) 15 mg PO QDAY [facility] Last Admin: 07/18/21 09:29 Dose: 15 mg Documented by: Sertraline HCl (Sertraline 100 Mg Tab) 200 mg PO QDAY [facility] Last Admin: 07/18/21 09:28 Dose: 200 mg Documented by: Trazodone HCl (Trazodone 50 Mg Tab) 50 mg PO QHS [facility] Last Admin: 07/17/21 21:12 Dose: 50 mg Documented by: Results - Results Labs/Vitals: Laboratory Last Values POC Glucose 113 mg/dL (70-105) H 07/14/21 17:37 TSH 0.591 mlU/mL (0.270-4.200) 07/15/21 08:34 Hepatitis A IgM Ab Non-reactive (NonReactive) 07/15/21 08:34 Hep Bs Antigen Nonreactive (Negative) 07/15/21 08:34 Hep B Core IgM Ab Non-reactive (NonReactive) 07/15/21 08:34 Hepatitis C Antibody Non-reactive (NonReactive) 07/15/21 08:34 Last Vital Signs Temp 98.2 F 07/17/21 09:37 Pulse 60 07/17/21 19:00 Resp 18 07/17/21 19:00 BP 127/75 07/17/21 19:00 Pulse Ox 97 07/17/21 19:00
--- NOTE | 2021-07-18 18:42 | Progress Note ---
Assessment and Plan - Patient Problems (1) Nicotine dependence Current Visit: Yes Status: Acute Qualifiers: Nicotine product type: cigarettes Plan to address problem: Smoking cessation counseling, supportive care, (2) Major depression Current Visit: Yes Status: Acute Plan to address problem: Continue medical management, behavior change counseling. History Interval history: 45 YO Male with Nicotine Dependence, MDD admitted to [facility] for Psychiatric stabilization. Consult placed by Dr. Chun for medical management. Pt seen and evaluated in his room. No reported nursing events. Patient denies pain. Hospitalist Physical - Constitutional Vitals: Temp Pulse Resp BP Pulse Ox 98.2 F 60 18 127/75 97 07/17/21 09:37 07/17/21 19:00 07/17/21 19:00 07/17/21 19:00 07/17/21 19:00 General appearance: Present: no acute distress - EENT Eyes: Present: PERRL - Neck Neck: Present: supple - Respiratory Respiratory effort: normal Respiratory: bilateral: CTA - Cardiovascular Rhythm: regular Heart Sounds: Present: S1 & S2 - Extremities Extremities: no ischemia Peripheral Pulses: within normal limits - Abdominal General gastrointestinal: soft, non-tender, non-distended - Integumentary Integumentary: Present: clear, dry - Psychiatric Psychiatric: cooperative - Neurologic Neurologic: CNII-XII intact Results - Labs Labs: Laboratory Last Values POC Glucose 113 mg/dL (70-105) H 07/14/21 17:37 TSH 0.591 mlU/mL (0.270-4.200) 07/15/21 08:34 Hepatitis A IgM Ab Non-reactive (NonReactive) 07/15/21 08:34 Hep Bs Antigen Nonreactive (Negative) 07/15/21 08:34 Hep B Core IgM Ab Non-reactive (NonReactive) 07/15/21 08:34 Hepatitis C Antibody Non-reactive (NonReactive) 07/15/21 08:34 Todd/IV: Voiding Method Toilet Active Medications - Current Medications Current Medications: Generic Name Dose Route Start Last Admin Trade Name Freq PRN Reason Stop Dose Admin Benztropine Mesylate 0.5 mg 07/15/21 10:00 07/18/21 09:28 Benztropine 0.5 Mg Tab PO 0.5 mg BID KAJAL Administration Gabapentin 300 mg 07/14/21 22:00 07/18/21 13:36 Gabapentin 300 Mg Cap PO 300 mg Q8HR KAJAL Administration Hydroxyzine Pamoate 50 mg 07/16/21 13:00 07/18/21 11:10 Hydroxyzine Pamoate 50 Mg Cap PO 50 mg Q6H PRN Administration Anxiety Ibuprofen 800 mg 07/14/21 20:22 07/18/21 09:29 Ibuprofen 800 Mg Tab PO 800 mg Q8H PRN Administration Pain, Mild (1-3) Olanzapine 15 mg 07/17/21 11:00 07/18/21 09:29 Olanzapine 7.5 Mg Tab PO 15 mg QDAY KAJAL Administration Sertraline HCl 200 mg 07/15/21 10:00 07/18/21 09:28 Sertraline 100 Mg Tab PO 200 mg QDAY KAJAL Administration Trazodone HCl 50 mg 07/14/21 22:00 07/17/21 21:12 Trazodone 50 Mg Tab PO 50 mg QHS KAJAL Administration
[2021-07-18] MEDS: traZODone 50 MG TAB PO SCH (21:07)
[2021-07-19] MEDS: GABAPENTIN 300 MG CAP PO SCH ×2 (05:31→13:47)
[2021-07-19 09:13] VITALS: BP 123/79
[2021-07-19] MEDS: BENZTROPINE 0.5 MG TAB PO SCH (09:13)
[2021-07-19] MEDS: SERTRALINE 100 MG TAB PO SCH (09:13)
[2021-07-19] MEDS: IBUPROFEN 800 MG TAB PO PRN (09:14)
--- NOTE | 2021-07-19 10:27 | Discharge Summary ---
Providers - Providers Date of Admission: 07/14/21 17:12 Date of discharge: 07/19/21 Attending physician: GISSEL MOY MD 07/14/21 16:05 Consult to Physician [CONS] Routine Comment: Consulting Provider: DOMINGO GUNN Physician Instructions: Reason For Exam: manage existing medical conditions Primary care physician: CURRICULUM WRITER Hospitalization Reason for admission: SI Admitting Diagnosis: F20.9 - SCHIZOPHRENIA, UNSPECIFIED Hospital course: The patient was provided inpatient psychiatric treatment with safe and supportive care, medication adjustment, adverse effect monitoring, medical evaluations, medical treatments, assessment and psycho-education. The patient's mood, cognition, behavior, moral support are improved and stabilized. St the time of discharge, the patient had no endangering behavior and no debilitating adverse effects. The patient agreed on potential consequences of no treatment and gave informed consent. 07/19 The patient was calm, cooperative and pleasant this morning. He stated he felt a lot better. He denies SI/HI or hallucinations of any kind. Disposition: 01 HOME / SELF CARE / HOMELESS Time spent for discharge: 35 Allergies/Adverse Reactions: Allergies No Known Allergies Allergy (Verified 07/13/21 12:17) Vital Signs: Last Vital Signs Temp 98.2 F 07/19/21 07:43 Pulse 61 07/19/21 07:43 Resp 18 07/19/21 07:43 BP 123/79 07/19/21 07:43 Pulse Ox 97 07/19/21 07:43 Last Lab: Laboratory Last Values POC Glucose 113 mg/dL (70-105) H 07/14/21 17:37 TSH 0.591 mlU/mL (0.270-4.200) 07/15/21 08:34 Hepatitis A IgM Ab Non-reactive (NonReactive) 07/15/21 08:34 Hep Bs Antigen Nonreactive (Negative) 07/15/21 08:34 Hep B Core IgM Ab Non-reactive (NonReactive) 07/15/21 08:34 Hepatitis C Antibody Non-reactive (NonReactive) 07/15/21 08:34 Core Measure Documentation - Palliative Care Palliative Care/ Comfort Measures: Not Applicable - Core Measures Any of the following diagnoses?: none Exam - Constitutional Vitals: Temp Pulse Resp BP Pulse Ox 98.2 F 61 18 123/79 97 07/19/21 07:43 07/19/21 07:43 07/19/21 07:43 07/19/21 07:43 07/19/21 07:43 General appearance: Present: no acute distress - EENT Eyes: Present: PERRL, EOM intact ENT: hearing intact, clear oral mucosa - Neck Neck: Present: normal ROM - Respiratory Respiratory effort: normal Plan Activity: advance as tolerated Weight Bearing Status: Weight Bear as Tolerated Care Plan Goals: Maintain good and stable mental health Plan of Treatment: The patient should be compliant with medications, not to use drugs, and not to drink alcohol. The patient understands that if suicidal ideas, homicidal ideas or any endangering feeling arise, the patient should seek assistance including, but not limited to crisis hotline, and emergency room. Assessment: Schizophrenia Follow up with: PRIMARY CARE, [Primary Care Provider] - 7 Days Prescriptions: traZODone [Desyrel] 50 mg PO QHS #30 tablet Benztropine [Cogentin] 0.5 mg PO BID #60 tablet Sertraline [Zoloft] 200 mg PO QDAY #60 tablet OLANzapine [ZyPREXA] 15 mg PO QDAY #60 tablet
== END 2021-07-19 16:30 | disposition home or self-care (01) | DRG 885 ==
LOC: 3A 15:40 → UNDOADMIN 15:40 → 5A 17:12
PROVIDERS: ADMIT Psychiatry & Neurology Psychiatry; ATTEND Psychiatry & Neurology Psychiatry
DX: F20.9 Schizophrenia, unspecified (principal); F41.9 Anxiety disorder, unspecified; F31.9 Bipolar disorder, unspecified; I10 Essential (primary) hypertension; J44.9 Chronic obstructive pulmonary disease, unspecified; F17.210 Nicotine dependence, cigarettes, uncomplicated; R45.851 Suicidal ideations
CPT/HCPCS: 36415; 80074; 82962; 84443; G0378; J3490; Q0177

== ENCOUNTER 2021-07-25 02:22 | Emergency (ER) | payer MEDICAID ==
--- NOTE | 2021-07-25 02:59 | Emergency Department Report ---
ED Psych HPI - General Chief Complaint: Psych Stated Complaint: SI Time Seen by Provider: 07/25/21 02:46 Source: patient Mode of arrival: Ambulatory - History of Present Illness Initial Comments: 45-year-old male, history of bipolar disorder, schizophrenia, presents to ED with suicidal ideations x3 days. Patient states he has been off of his psychiatric medicine x5 days. While in triage, triage nurse witnessed patient pull out a razor blade and cut his wrist. Patient also reported that he wanted to try to walk in front of traffic. Patient reports recent psych admission 2 weeks ago. Patient denies any drug or alcohol use. Patient reports auditory hallucinations telling him to kill himself. MD Complaint: suicidal ideation -: days(s) (3) Associated Psychiatric Symptoms: suicidal ideation, auditory hallucinations Quality: constant Improves With: none Worsens With: none Context: not taking psychiatric Associated Symptoms: denies other symptoms If Self Harm: has acted on plan (Patient cut himself with a razor blade) Details of Plan: Patient cut himself with a razor blade, also states he wants to run into traffic. - Related Data Home Medications Medication Instructions Recorded Confirmed Last Taken amLODIPine 5 mg PO DAILY 04/16/21 07/15/21 Unknown Previous Rx's Medication Instructions Recorded Last Taken Type Gabapentin 300 mg PO Q8HR 30 Days #60 capsule 04/20/21 Unknown Rx Ibuprofen [Motrin 800 MG tab] 800 mg PO Q8H PRN tablet 04/20/21 Unknown Rx Nicotine [Habitrol] 21 mg TD QDAY #30 patch 05/27/21 Unknown Rx hydrOXYzine PAMOATE [Vistaril] 25 mg PO BID PRN #60 capsule 05/27/21 Unknown Rx Benztropine [Cogentin] 0.5 mg PO BID #60 tablet 07/19/21 Unknown Rx OLANzapine [ZyPREXA] 15 mg PO QDAY #60 tablet 07/19/21 Unknown Rx Sertraline [Zoloft] 200 mg PO QDAY #60 tablet 07/19/21 Unknown Rx traZODone [Desyrel] 50 mg PO QHS #30 tablet 07/19/21 Unknown Rx Allergies Allergy/AdvReac Type Severity Reaction Status Date / Time No Known Allergies Allergy Verified 07/13/21 12:17 ED Review of Systems ROS: Stated complaint: SI Other details as noted in HPI Comment: All other systems reviewed and negative Psychiatric: auditory hallucinations, suicidal thoughts ED Past Medical Hx - Past Medical History Hx Hypertension: Yes Hx Congestive Heart Failure: No Hx Diabetes: No Hx Arthritis: No Hx Seizures: No Hx Psychiatric Treatment: Yes (Bipolar disorder, schizophrenia, anxiety) Hx Asthma: Yes Hx COPD: No - Surgical History Additional Surgical History: Left hip surgery - Social History Smoking Status: Current Every Day Smoker - Medications Home Medications: Home Medications Medication Instructions Recorded Confirmed Last Taken Type amLODIPine 5 mg PO DAILY 04/16/21 07/15/21 Unknown History Gabapentin 300 mg PO Q8HR 30 Days #60 capsule 04/20/21 07/15/21 Unknown Rx Ibuprofen [Motrin 800 MG tab] 800 mg PO Q8H PRN tablet 04/20/21 07/15/21 Unknown Rx Nicotine [Habitrol] 21 mg TD QDAY #30 patch 05/27/21 07/15/21 Unknown Rx hydrOXYzine PAMOATE [Vistaril] 25 mg PO BID PRN #60 capsule 05/27/21 07/15/21 Unknown Rx Benztropine [Cogentin] 0.5 mg PO BID #60 tablet 07/19/21 Unknown Rx OLANzapine [ZyPREXA] 15 mg PO QDAY #60 tablet 07/19/21 Unknown Rx Sertraline [Zoloft] 200 mg PO QDAY #60 tablet 07/19/21 Unknown Rx traZODone [Desyrel] 50 mg PO QHS #30 tablet 07/19/21 Unknown Rx ED Physical Exam - General Limitations: No Limitations General appearance: alert, in no apparent distress - Head Head exam: Present: atraumatic, normocephalic - Eye Eye exam: Present: normal appearance - ENT ENT exam: Present: mucous membranes moist - Neck Neck exam: Present: normal inspection - Respiratory Respiratory exam: Present: normal lung sounds bilaterally. Absent: respiratory distress - Cardiovascular Cardiovascular Exam: Present: regular rate, normal rhythm - GI/Abdominal GI/Abdominal exam: Absent: distended - Extremities Exam Extremities exam: Present: other (Very small superficial laceration on left wrist, no active bleeding) - Neurological Exam Neurological exam: Present: alert, oriented X3 - Psychiatric Psychiatric exam: Present: depressed, suicidal ideation - Skin Skin exam: Present: warm, dry, intact, normal color ED Course Vital Signs 07/25/21 07/25/21 07/25/21 02:24 08:50 09:34 Temperature 98.9 F 98.6 F Pulse Rate 96 H 72 Respiratory 18 14 Rate Blood Pressure 130/92 126/82 [Right] O2 Sat by Pulse 97 100 97 Oximetry ED Medical Decision Making - Lab Data Result diagrams: 07/25/21 03:23 07/25/21 03:23 Critical care attestation.: If time is entered above; I have spent that time in minutes in the direct care of this critically ill patient, excluding procedure time. ED Disposition Clinical Impression: Suicidal ideation Disposition: [address] [place] [address] Is pt being admited?: No Condition: Stable Referrals: PRIMARY CARE, [Primary Care Provider] - 3-5 Days
[2021-07-25] MEDS ORDERED: LORazepam 2 MG/ML VIAL IM ONE (03:36)
[2021-07-25 03:55] LABS: Bacteria,Urine 1+ /HPF (Negative); Bilirubin,Urine NEG (Negative); Blood,Urine NEG (Negative); Color,Urine Yellow (Yellow); Mucus,Urine FEW /HPF; Urobilinogen,Urine < 2.0 mg/dL (<2.0)
[2021-07-25 04:02] LABS: Hemoglobin 14.6 gm/dl (11.8-15.2); Mean Corpuscular HGB Conc 33 % (32-34); Mean Corpuscular Volume 87 fl (84-94); Platelet Count 248 K/mm3 (140-440); Red Blood Count 5.08 M/mm3 (3.65-5.03); Red Cell Distribution Width 14.3 % (13.2-15.2)
[2021-07-25 04:03] LABS: Amphetamine Screen,Urine PRESUMPTIVE NEGATIVE; Benzodiazepines Screen,Urine PRESUMPTIVE NEGATIVE; Cannabinoid Screen,Urine PRESUMPTIVE NEGATIVE; Cocaine Screen,Urine PRESUMPTIVE NEGATIVE; Methadone Screen,Urine PRESUMPTIVE NEGATIVE; Opiate Screen,Urine PRESUMPTIVE NEGATIVE
[2021-07-25 06:08] LABS: BUN/Creatinine Ratio 10; Blood Urea Nitrogen 10 mg/dL (9-20); Calcium 9.7 mg/dL (8.4-10.2); Hemolysis Index 10
[2021-07-25 06:57] LABS: Total Cells Counted 100
[2021-07-25 06:58] LABS: Band Neutrophils # (Manual) 0.1 K/mm3; Platelet Estimate Consistent w Auto; RBC Morphology Normal
[2021-07-25 08:51] VITALS: BP 126/82
--- NOTE | 2021-07-25 10:02 | Consultation ---
History of Present Illness - Reason for Consult Consult date: 07/25/21 Reason for consult: suicidal ideation - History of Present Psychiatric Illness The patient is a 45 year old male with history of Depression, Anxiety, Bipolar, and Schizophrenia. The patient is paranoid " stating people are bothering me, I got tired so I tried to commit suicide." The patient was recently discharged from the [facility] psych unit about 2 weeks ago; he reports noncompliant with psychotropic medications. He endorses suicidal ideation, auditory and visual hallucinations ( voices are telling me to hurt myself and run into a moving traffic." PAST PSYCHIATRIC HISTORY: Diagnoses: Depression, Anxiety, Bipolar, Schizophrenia Suicide attempts or Self-harm behavior: X20 Prior psychiatric hospitalizations: Yes Substance Abuse history: Denies Previous psychiatric medications tried: Yes Outpatient treatment: yes PAST MEDICAL HISTORY: None reported or document Family Psychiatric History: None reported or documented SOCIAL HISTORY Marital Status: Single Living Arrangements: Transitional home Employment Status: Unemployed Access to guns/weapons: denies Education: 12th grade History of Abuse: denies Legal History: denies REVIEW OF SYSTEMS Constitutional: Negative for weight loss ENT: Negative for stridor Respiratory: Negative for cough or hemoptysis All other systems reviewed and are negative MENTAL STATUS EXAMINATION General Appearance and Behavior: Age appropriate, good hygiene, wearing appropriate clothes, calm and cooperative polite with questioning. Cooperation: engaged Psychomotor Behavior: Psychomotor normal Mood: depressed Affect and affective range: congruent with stated mood Thought Process: goal directed Thought Content: Suicidal Speech: Normal volume, Regular rate and rhythm, Suicidal Ideation: Yes Homicidal Ideation: Denies Hallucinations: Auditory and visual Delusions: None elicited Impulse Control: Questionable Insight and Judgment: Limited Memory: Limited Attention: attentive Orientation: a/o Assessment and Plan (1)Schizophrenia Treatment Plan 1013 Haldol 5mg BID Restart home medications Sitter: per primary Medical: Per primary Disposition: Recommend acute psychiatric inpatient treatment Will follow. Thanks case staffed with Dr. Renteria Medications and Allergies Allergies Allergy/AdvReac Type Severity Reaction Status Date / Time No Known Allergies Allergy Verified 07/13/21 12:17 Home Medications Medication Instructions Recorded Confirmed Last Taken Type amLODIPine 5 mg PO DAILY 04/16/21 07/15/21 Unknown History Gabapentin 300 mg PO Q8HR 30 Days #60 capsule 04/20/21 07/15/21 Unknown Rx Ibuprofen [Motrin 800 MG tab] 800 mg PO Q8H PRN tablet 04/20/21 07/15/21 Unknown Rx Nicotine [Habitrol] 21 mg TD QDAY #30 patch 05/27/21 07/15/21 Unknown Rx hydrOXYzine PAMOATE [Vistaril] 25 mg PO BID PRN #60 capsule 05/27/21 07/15/21 Unknown Rx Benztropine [Cogentin] 0.5 mg PO BID #60 tablet 07/19/21 Unknown Rx OLANzapine [ZyPREXA] 15 mg PO QDAY #60 tablet 07/19/21 Unknown Rx Sertraline [Zoloft] 200 mg PO QDAY #60 tablet 07/19/21 Unknown Rx traZODone [Desyrel] 50 mg PO QHS #30 tablet 07/19/21 Unknown Rx Mental Status Exam - Vital signs Last Vital Signs Temp 98.6 F 07/25/21 08:50 Pulse 72 07/25/21 08:50 Resp 14 07/25/21 08:50 BP 126/82 07/25/21 08:50 Pulse Ox 97 07/25/21 09:34 Results Result Diagrams: 07/25/21 03:23 07/25/21 03:23 Abnormal lab results 07/25/21 07/25/21 07/25/21 Range/Units 03:23 03:23 03:23 RBC 5.08 H (3.65-5.03) M/mm3 Seg Neuts % (Manual) 80.0 H (40.0-70.0) % Seg Neutrophils # Man 8.3 H (1.8-7.7) K/mm3 Glucose (75-100) mg/dL Urine WBC (Auto) (0.0-6.0) /HPF Salicylates < 0.3 L (2.8-20.0) mg/dL Acetaminophen 5.0 L (10.0-30.0) ug/mL 07/25/21 07/25/21 Range/Units 03:23 Unknown RBC (3.65-5.03) M/mm3 Seg Neuts % (Manual) (40.0-70.0) % Seg Neutrophils # Man (1.8-7.7) K/mm3 Glucose 152 H (75-100) mg/dL Urine WBC (Auto) 8.0 H (0.0-6.0) /HPF Salicylates (2.8-20.0) mg/dL Acetaminophen (10.0-30.0) ug/mL All other labs normal.
[2021-07-25] MEDS ORDERED: hydrOXYzine PAMOATE 25 MG CAP PO PRN (10:07)
[2021-07-25] MEDS ORDERED: SERTRALINE 100 MG TAB PO SCH (11:00)
[2021-07-25] MEDS ORDERED: SERTRALINE 50 MG TAB PO SCH (11:00)
[2021-07-25] MEDS ORDERED: HALOPERIDOL 5 MG TAB PO SCH (11:00)
[2021-07-25] MEDS ORDERED: BENZTROPINE 0.5 MG TAB PO SCH (11:00)
[2021-07-25] MEDS ORDERED: traZODone 50 MG TAB PO SCH (22:00)
== END 2021-07-25 18:07 ==
LOC: ED 02:22
DX: R45.851 Suicidal ideations (principal); Z20.822 Contact with and (suspected) exposure to COVID-19; F17.200 Nicotine dependence, unspecified, uncomplicated; Z79.899 Other long term (current) drug therapy; I10 Essential (primary) hypertension
CPT/HCPCS: 36415; 80048; 80307; 81001; 85007; 85025; 96372; 99285; J2060; U0003; 80320; G0480